=== PATIENT | female | born 1995 | race Caucasian/White ===

== ENCOUNTER 2018-10-03 22:08 | Inpatient (IN) | payer OTHER ==
[~2018-10-03] VITALS: Ht 152.4 cm; Wt 53.0 kg
--- NOTE | 2018-10-03 22:27 | ERD ---
ER Documentation Chief Complaint Chief Complaint R81. "LESS ACTIVE THAN USUAL". LEFT EYEBROW SWELLING. TRACH TO AIR. HPI This is a 23-year-old female presents for evaluation of being less active than usual. Patient resides at [facility], her baseline mental status unclear, however she was reportedly more active than what was noted today. Her vital signs have otherwise been normal, she has not had any respiratory issues, she is chronically trached. She is not verbal on evaluation. ROS All systems reviewed and are negative except as per history of present illness. Allergies Allergies: Coded Allergies: Sulfa (Sulfonamide Antibiotics) (Verified Allergy, Unknown, 10/03/18) PMhx/Soc History of Surgery: Yes (CRANIOTOMY (LEFTSIDE) 2017, TRACH PLACED SEPTEMBER 2017) Anesthesia Reaction: No Hx Neurological Disorder: No Hx Respiratory Disorders: Yes Hx Cardiac Disorders: No Hx Psychiatric Problems: No Hx Miscellaneous Medical Probl: Yes (GERD) Hx Alcohol Use: No Hx Substance Use: No Hx Tobacco Use: No Smoking Status: Never smoker Physical Exam Vitals Vital Signs Date Temp Pulse Resp B/P (MAP) Pulse Ox O2 O2 Flow FiO2 Time Delivery Rate 10/03/18 114 24 120/58 95 Trach 23:06 (78) Collar 10/03/18 120 22 96 Aerosol 5.0 28 22:56 T Tube 10/03/18 96 5.0 28 22:56 10/03/18 98.4 137 26 126/72 94 22:12 (90) Physical Exam Const: Chronically ill-appearing female, in no apparent distress. Head: Atraumatic Eyes: Normal Conjunctiva ENT: Normal External Ears, Nose and Mouth. Neck: Full range of motion. No meningismus. Trach site clean dry and intact Resp: Clear to auscultation bilaterally Cardio: Regular rate and rhythm, no murmurs Abd: Soft, non tender, non distended. Normal bowel sounds Skin: No petechiae or rashes Back: No midline or flank tenderness Ext: No cyanosis, or edema Neur: Awake and alert Psych: Unable to evaluate Result Diagram: 10/03/186 10/03/182235 Results 24 hrs Laboratory Tests Test 10/03/18 22:33 10/03/18 22:36 10/03/18 23:04 Blood Gas Specimen Source Blood venous Arterial Blood Date 10/03/2018 11:00:06 PM Drawn Arterial Blood Gas VENOUS LINE Puncture Site Edgardo Test N/A Venous Blood pH 7.482 Venous Blood pCO2 38.5 mmHG (Temp Corrected) Venous Blood pO2 63.6 mmHG (Temp Corrected) Venous Blood HCO3 28.2 mmol/L Venous Blood Oxygen 92.8 mmHG Saturation Venous Blood Base Excess 4.5 mmol/L Venous Blood Total 13.7 g/dl Hemoglobin Venous Blood 92.4 % Oxyhemoglobin Venous Blood 0.4 % Methemoglobin Carboxyhemoglobin 0 % Blood Gas Temperature 37.0 C Blood Gas Actual 18 Respiration Rate Blood Gas Modality TRACH COLLAR FiO2 28.0 % Blood Gas Notified Whom Natasha OLMEDO SURVEILLANCE MANAGER Blood Gas Notified Time 10/03/2018 11:06:36 PM White Blood Count 13.7 10^3/ul Red Blood Count 4.36 10^6/ul Hemoglobin 13.1 g/dl Hematocrit 39.3 % Mean Corpuscular Volume 90.1 fl Mean Corpuscular 30.0 pg Hemoglobin Mean Corpuscular 33.3 g/dl Hemoglobin Concent Red Cell Distribution 12.9 % Width Platelet Count 318 10^3/UL Mean Platelet Volume 11.5 fl Immature Granulocytes % 0.400 % Neutrophils % 81.3 % Lymphocytes % 11.0 % Monocytes % 6.5 % Eosinophils % 0.4 % Basophils % 0.4 % Nucleated Red Blood Cells 0.0 /100WBC % Immature Granulocytes # 0.050 10^3/ul Neutrophils # 11.1 10^3/ul Lymphocytes # 1.5 10^3/ul Monocytes # 0.9 10^3/ul Eosinophils # 0.1 10^3/ul Basophils # 0.1 10^3/ul Nucleated Red Blood Cells 0.0 10^3/ul # Prothrombin Time 12.6 Sec Prothrombin Time Ratio 1.0 INR International 0.93 Normalized Ratio Activated 32.7 Sec Partial Thromboplast Time Sodium Level 140 mmol/L Potassium Level 3.9 mmol/L Chloride Level 103 mmol/L Carbon Dioxide Level 28 mmol/L Anion Gap 9 Blood Urea Nitrogen 13 mg/dl Creatinine 0.41 mg/dl Est Glomerular Filtrat > 60 mL/min Rate mL/min Glucose Level 96 mg/dl Calcium Level 9.9 mg/dl Total Bilirubin 0.4 mg/dl Direct Bilirubin 0.00 mg/dl Indirect Bilirubin 0.4 mg/dl Aspartate Amino 24 IU/L Transf (AST/SGOT) Alanine 17 IU/L Aminotransferase (ALT/SGP T) Alkaline Phosphatase 94 IU/L Troponin I < 0.012 ng/ml Total Protein 7.8 g/dl Albumin 4.4 g/dl Globulin 3.40 g/dl Albumin/Globulin Ratio 1.29 Procalcitonin 1.15 ng/mL Urine Color YELLOW Urine Clarity SLIGHTLY CLOUDY Urine pH 7.0 Urine Specific [place] 1.031 Urine Ketones TRACE mg/dL Urine Nitrite NEGATIVE mg/dL Urine Bilirubin NEGATIVE mg/dL Urine Urobilinogen NEGATIVE mg/dL Urine Leukocyte Esterase NEGATIVE Rosa/ul Urine Microscopic RBC 2 /HPF Urine Microscopic WBC 1 /HPF Urine Mucus FEW /HPF Urine Hemoglobin NEGATIVE mg/dL Urine Glucose 3+ mg/dL Urine Total Protein NEGATIVE mg/dl Current Medications Medications Dose Sig/Lory Start Time Status Last (Trade) Ordered Route PRN Stop Time Admin Dose Reason Admin Sodium 1,000 ml @ Q1H ONCE 10/03/18 DC 10/03/18 Chloride 1,000 mls/hr IV 23:30 10/04/18 23:11 00:29 Vancomycin 250 ml @ ONCE STAT 10/04/18 HCl 125 mls/hr IVPB 00:22 10/04/18 02:21 Piperacillin 100 ml @ ONCE STAT 10/04/18 Sod/ 200 mls/hr IVPB 00:22 10/04/18 Tazobactam 00:51 Sod Procedures/MDM 23-year-old female presents for changes in level of alertness. Patient arrived afebrile and nontoxic-appearing, with no clear signs of infection. Labs and CT brain ordered. She does have a history of diabetes,, however she had no evidence of DKA. She had no fever, however she was noted to be tachycardic, and given leukocytosis, as well as an elevated procalcitonin, I am concerned that the patient could have early signs of sepsis, and as she is high risk, from residing at a facility, being chronically bed bound and trached. Will plan for admission for possible infection. We will treat empirically with vancomycin and Zosyn. Accepting Care Team: Current data and ongoing care discussed. Primary: Alli Consulting: None Outstanding Data: none EKG: Rate/Rhythm: Sinus tachycardia QRS, ST, T-waves: No changes consistent w/ acute ischemia Impression: No evidence of ischemia or arrhythmia Departure Diagnosis: Primary Impression: Altered level of consciousness Additional Impression: Leukocytosis Leukocytosis type: unspecified Qualified Codes: D72.829 - Elevated white blood cell count, unspecified Condition: Stable SHELBY FREEDMAN MD Oct 03, 2018 22:27
[2018-10-03] MEDS ORDERED: SOD CHLORIDE 0.9% 1,000 ML IV ONE (23:30)
[2018-10-04] MEDS ORDERED: PIPER-TAZO 3.375 GM IV (PMX) 100 ML IVPB STA (00:22)
[2018-10-04] MEDS ORDERED: VANCOMYCIN 1 GM (PMX) 250 ML IVPB STA (00:22)
[2018-10-04] MEDS ORDERED: ACETAMINOPHEN 650 MG SUPP PR ONE (09:30)
[2018-10-04] MEDS ORDERED: NACL 0.9% 3 ML SYG IV SCH (10:00)
[2018-10-04] MEDS ORDERED: BISACODYL (EC) 5 MG TAB PO PRN (10:00)
[2018-10-04] MEDS ORDERED: ONDANSETRON 4 MG TAB PO PRN (10:00)
[2018-10-04] MEDS ORDERED: BISACODYL 10 MG SUPP PR PRN (10:00)
[2018-10-04] MEDS ORDERED: MAGNESIUM HYDROXIDE 30ML CUP PO PRN (10:00)
[2018-10-04] MEDS ORDERED: ACETAMINOPHEN 650 MG SUPP PR PRN (10:00)
[2018-10-04] MEDS ORDERED: DOCUSATE SODIUM 100 MG CAP PO PRN (10:00)
[2018-10-04] MEDS ORDERED: ASPI81TA52 GTB (10:02)
[2018-10-04] MEDS ORDERED: FAMO20TA18 GTB (10:03)
[2018-10-04] MEDS ORDERED: DOCO1CAP2 GTB (10:04)
[2018-10-04] MEDS ORDERED: CIDE300T GTB (10:05)
[2018-10-04] MEDS ORDERED: COCO120O GTB (10:06)
[2018-10-04] MEDS ORDERED: VIT500LI GTB (10:08)
[2018-10-04] MEDS ORDERED: METO-429 GTB (10:10)
[2018-10-04] MEDS ORDERED: HYDR-3671 GTB (10:11)
[2018-10-04] MEDS ORDERED: HEP30MU30 SQ (10:13)
[2018-10-04] MEDS ORDERED: MAGN400O19 GTB (10:14)
[2018-10-04] MEDS ORDERED: ONDA4TAB8 GTB (10:14)
[2018-10-04] MEDS ORDERED: POLY17PO6 GTB (10:15)
[2018-10-04] MEDS ORDERED: PROM5SYR2 GTB (10:19)
[2018-10-04] MEDS ORDERED: HYDR-3670 GTB (10:21)
[2018-10-04] MEDS ORDERED: HYDR2TAB36 G-TUBE (10:23)
[2018-10-04] MEDS ORDERED: CLON0.2T12 GTB (10:23)
[2018-10-04] MEDS ORDERED: LORA-441 GTB (10:24)
[2018-10-04] MEDS ORDERED: BACL10TA GTB (10:25)
[2018-10-04] MEDS ORDERED: TRAM50TA PO (10:26)
[2018-10-04] MEDS ORDERED: LIDO10VI TOP (10:30)
[2018-10-04] MEDS ORDERED: LOPE2CAP GTB (10:31)
[2018-10-04] MEDS ORDERED: GUAI600T23 GTB (10:32)
[2018-10-04] MEDS ORDERED: ACET160O41 GTB (10:33)
[2018-10-04] MEDS ORDERED: HYDR-4011 GTB (10:34)
[2018-10-04] MEDS ORDERED: BISA10SU55 RC (10:35)
[2018-10-04] MEDS ORDERED: ANR PR (10:35)
--- NOTE | 2018-10-04 11:04 | HP ---
Date/Time of Note Date/Time of Note DATE: 10/04/18 TIME: 10:58 Assessment/Plan VTE Prophylaxis Pharmacological prophylaxis: LMWH Lines/Catheters IV Catheter Type (from [facility]): Sal[place] Assessment/Plan Hospital Course 1. SIRS. Lactic acid is normal 2. Left side pneumonia. Xray chest is positive for Patchy left lower lobe pneumonia. 3. VDRF with tracheostomy 4. s/p craniotomy on the left. Incomplete data. 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 Brain herniates beyond the margins of the craniectomy. Old posterior right basil ganglia lacunar infarct extending cephalad into the right parietal nichols radiata and centrum semiovale. Laminar necrosis/dystrophic calcification lateral left frontal lobe. Acute hemorrhage considered less likely. Paranasal sinus mucosal disease. Right mastoid air cell disease. 5. Dysphagia with G tube Assessment/Plan -DVT proph. Lovenox -GI proph. Protonix -c/w IV a/b Rocephine -nebs around the clock -c/w tube feeding/gentle -medsurg -cooling measures -pt is pancultured -start IV fluids Result Diagram: 10/03/18223510/03/182235 Results 24hrs Laboratory Tests Test 10/03/18 22:33 10/03/18 22:36 10/03/18 23:04 10/04/18 00:21 Blood Gas Blood venous Specimen Source Arterial Blood 10/03/2018 11:00:0 Date Drawn 6 PM Arterial Blood VENOUS LINE Gas Puncture Site Edgardo Test N/A Venous Blood pH 7.482 H Venous Blood 38.5 pCO2 (Temp Corrected) Venous Blood pO2 63.6 H (Temp Corrected) Venous Blood 28.2 HCO3 Venous Blood 92.8 H Oxygen Saturation Venous Blood 4.5 Base Excess Venous Blood 13.7 Total Hemoglobin Venous Blood 92.4 Oxyhemoglobin Venous Blood 0.4 Methemoglobin Carboxyhemoglobi 0 n Blood Gas 37.0 Temperature Blood Gas Actual 18 Respiration Rate Blood Gas TRACH COLLAR Modality FiO2 28.0 Blood Gas D SHARA YARD BRAKEMAN Notified Whom Blood Gas 10/03/2018 11:06:3 Notified Time 6 PM White Blood 13.7 H Count Red Blood Count 4.36 Hemoglobin 13.1 Hematocrit 39.3 Mean Corpuscular 90.1 Volume Mean Corpuscular 30.0 Hemoglobin Mean Corpuscular 33.3 Hemoglobin Bailey nt Red Cell 12.9 Distribution Width Platelet Count 318 Mean Platelet 11.5 H Volume Immature 0.400 Granulocytes % Neutrophils % 81.3 H Lymphocytes % 11.0 L Monocytes % 6.5 Eosinophils % 0.4 Basophils % 0.4 Nucleated Red 0.0 Blood Cells % Immature 0.050 H Granulocytes # Neutrophils # 11.1 H Lymphocytes # 1.5 Monocytes # 0.9 Eosinophils # 0.1 Basophils # 0.1 Nucleated Red 0.0 Blood Cells # Prothrombin Time 12.6 Prothrombin Time 1.0 Ratio INR 0.93 International Normalized Ratio Activated 32.7 Partial Thrombop last Time Sodium Level 140 Potassium Level 3.9 Chloride Level 103 Carbon Dioxide 28 Level Anion Gap 9 Blood Urea 13 Nitrogen Creatinine 0.41 L Est Glomerular > 60 Filtrat Rate mL/min Glucose Level 96 Calcium Level 9.9 Total Bilirubin 0.4 Direct Bilirubin 0.00 Indirect 0.4 Bilirubin Aspartate Amino 24 Transf (AST/SGOT ) Alanine 17 Aminotransferase (ALT/SGPT) Alkaline 94 Phosphatase Troponin I < 0.012 Total Protein 7.8 Albumin 4.4 Globulin 3.40 H Albumin/Globulin 1.29 Ratio Procalcitonin 1.15 H Urine Color YELLOW Urine Clarity SLIGHTLY CLOUDY A Urine pH 7.0 Urine Specific 1.031 H Gamaliel Urine Ketones TRACE A Urine Nitrite NEGATIVE Urine Bilirubin NEGATIVE Urine NEGATIVE Urobilinogen Urine Leukocyte NEGATIVE Esterase Urine 2 Microscopic RBC Urine 1 Microscopic WBC Urine Mucus FEW A Urine Hemoglobin NEGATIVE Urine Glucose 3+ H Urine Total NEGATIVE Protein Lactic Acid 0.9 Level Test 10/04/18 01:10 10/04/18 03:00 POC Venous 0.6 Lactate Lactic Acid 0.8 Level HPI/ROS Admit Date/Time Admit Date/Time Hx of Present Illness This is a 23-year-old residential resident presents to ER for evaluation of being less active than usual. The information is taken from medical record. Pt is non verbal and he base line is unknown. Patient resides at [facility]. Pt has tracheostomy and G tube. ROS Subjective hx not possible: pt non-verbal PMH/Family/Social Past Medical History Medical History: other (unknown) Medications Current Medications Sodium Chloride 1,000 ml @ 50 mls/hr Q20H IV ; Start 10/04/18 at 09:39 IV Flush (NS 3 ml) 3 ml PER PROTOCOL IV ; Start 10/04/18 at 10:00 Ondansetron HCl (Zofran Tab) 4 mg Q6H PRN PO NAUSEA/VOMITING; Start 10/04/18 at 10:00 Acetaminophen (Tylenol Supp) 650 mg Q6H PRN [place] .PAIN 1-3 OR TEMP; Start 10/04/18 at 10:00 Docusate Sodium (Colace) 100 mg Q12H PRN PO .CONSTIPATION; Start 10/04/18 at 10:00 Magnesium Hydroxide (Milk Of Mag) 30 ml DAILY PRN PO .CONSTIPATION; Start 10/04/18 at 10:00 Bisacodyl (Dulcolax) 5 mg DAILY PRN PO .CONSTIPATION; Start 10/04/18 at 10:00 Bisacodyl (Dulcolax Supp) 10 mg DAILY PRN [place] .CONSTIPATION; Start 10/04/18 at 10:00 Pantoprazole (Protonix Tab) 40 mg DAILY@06 PO ; Start 10/05/18 at 06:00 Ceftriaxone Sodium 50 ml @ 100 mls/hr Q24H IVPB ; Start 10/04/18 at 11:00 Coded Allergies: Sulfa (Sulfonamide Antibiotics) (Verified Allergy, Unknown, 10/04/18) Past Surgical History Past Surgical Hx: other (CRANIOTOMY (LEFTSIDE), 2017, TRACHeostomy and G tube , SEPTEMBER 2017) Social History Alcohol Use: other (unknown) Smoking Status: Never smoker Drug Use: other (unknown) Exam/Review of Systems Vital Signs Vitals Vital Signs Date Temp Pulse Resp B/P (MAP) Pulse Ox O2 O2 Flow FiO2 Time Delivery Rate 10/04/18 100.4 09:22 10/04/18 107 24 115/63 96 Trach 5.0 08:30 (80) Collar 10/04/18 28 05:20 Exam Constitutional: alert, non-verbal Head: other (left side of the head without a bone, soft o palpation, brain pulsatig) Neck: supple, other (tracheostomy) Respiratory: diminished breath sounds Cardiovascular: regular rate and rhythm Gastrointestinal: soft, other (G tube) Extremities: normal pulses VICTOR MANUEL ALEXIS Oct 04, 2018 11:04
[2018-10-04] MEDS: SOD CHLORIDE 0.9% 1,000 ML IV SCH (11:21)
[2018-10-04] MEDS: CEFTRIAXONE 1 GM/50 ML (PMX) 50 ML IVPB SCH (11:21)
[2018-10-04 12:30] VITALS: BMI 26.7
[2018-10-04] MEDS: ALBUTEROL/IPRATROPIUM (NEB) 3 ML AMP HHN SCH ×2 (13:44→20:41)
[2018-10-04 13:59] VITALS: PULSE 107
[2018-10-04] MEDS ORDERED: ACETAMINOPHEN 160 MG/5ML CUP GTB PRN (14:30)
[2018-10-04] MEDS ORDERED: LOPERAMIDE 2 MG CAP GTB PRN (15:00)
[2018-10-04] MEDS ORDERED: LORAZEPAM 0.5 MG TAB GTB PRN (15:00)
[2018-10-04 15:07] VITALS: BP 114/59; PULSE 90; RESP 18
[2018-10-04] MEDS: ENOXAPARIN 40 MG/0.4 ML SYG SC SCH (15:28)
[2018-10-04] MEDS: ASPIRIN 81 MG TAB GTB SCH (16:35)
[2018-10-04] MEDS: ASCORBIC ACID 500 MG TAB GTB SCH (16:35)
[2018-10-04 17:17] VITALS: PULSE 97
[2018-10-04] MEDS: INSULIN ASPART [NOVOLOG] 3 ML PEN SC SCH ×2 (18:08→20:56)
[2018-10-04 18:51] VITALS: PULSE 140; PULSE 144
[2018-10-04] MEDS: HYDROmorphONE 2 MG TAB GTB PRN (19:44)
[2018-10-04 20:00] VITALS: BP 133/99; PULSE 138; PULSE 148; RESP 20
[2018-10-04] MEDS: FAMOTIDINE 20 MG TAB GTB SCH (20:29)
[2018-10-04] MEDS: METOPROLOL 50 MG TAB GTB SCH (20:30)
[2018-10-05] VITALS (9 sets, daily range): BP systolic 104–119; BP diastolic 56–74; PULSE 91–125; RESP 17–19
[2018-10-05] MEDS: ALBUTEROL/IPRATROPIUM (NEB) 3 ML AMP HHN SCH ×4 (02:16→20:22)
[2018-10-05] MEDS: HYDROmorphONE 2 MG TAB GTB PRN ×2 (03:22→10:47)
[2018-10-05] MEDS: SOD CHLORIDE 0.9% 1,000 ML IV SCH (05:40)
[2018-10-05] MEDS: PANTOPRAZOLE (EC) 40 MG TAB PO SCH (05:41)
[2018-10-05] MEDS: BACLOFEN 10 MG TAB GTB PRN ×2 (06:29→21:51)
[2018-10-05] MEDS ORDERED: GLUCOSE GEL 15 GRAM TUBE BUCCAL PRN (07:00)
[2018-10-05] MEDS ORDERED: GLUCOSE GEL 15 GRAM TUBE PO PRN ×2 (07:00)
[2018-10-05] MEDS ORDERED: ONDANSETRON 4 MG INJ IV PRN (07:00)
[2018-10-05] MEDS ORDERED: DEXTROSE 50% 50 ML SYRINGE IV PRN ×2 (07:00)
[2018-10-05] MEDS ORDERED: GLUCAGON 1 MG INJ IM PRN (07:00)
[2018-10-05] MEDS: INSULIN ASPART [NOVOLOG] 3 ML PEN SC SCH ×4 (08:42→21:34)
--- NOTE | 2018-10-05 10:55 | PN ---
Date/Time of Note Date/Time of Note DATE: 10/05/18 TIME: 10:46 Assessment/Plan VTE Prophylaxis [place] [facility] [place] risk: 5 SCD applied (from [facility] [place] Yes Pharmacological prophylaxis: LMWH Lines/Catheters IV [facility] Peripheral IV Urinary Cath still in place: No Assessment/Plan Hospital Course 1. SIRS. Lactic acid is normal 2. Left side pneumonia. Xray chest is positive for Patchy left lower lobe pneumonia. 3. VDRF with tracheostomy 4. s/p craniotomy on the left. Incomplete data. 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 Brain herniates beyond the margins of the craniectomy. Old posterior right basil ganglia lacunar infarct extending ceph alad into the right parietal nichols radiata and centrum semiovale. Laminar necrosis/dystrophic calcification lateral left frontal lobe. Acute hemorrhage considered less likely. Paranasal sinus mucosal disease. Right mastoid air cell disease. 5. Dysphagia with G tube 6. DM type I, uncontrolled 7. Opiate dependence, per SNF record pt was on Dilaudid PO, [place], Tramadol 8. Hypertension Assessment/Plan -DVT proph. Lovenox Dr Quintero pulmonary consult -insulin [place] 18 units -hypoglycemic measures -GI proph. Protonix -c/w IV a/b Rocephine -nebs around the clock -c/w tube feeding/gentle -medsurg -cooling measures -pt is pancultured -c/w IV fluids NS -pain control Result Diagram: 10/05/18 0510 10/05/18 0510 Results 24hrs Laboratory Tests Test 10/04/18 17:26 10/04/18 20:52 10/05/18 05:10 10/05/18 08:28 Bedside Glucose 204 242 H 416 *H White Blood Count 9.7 # Red Blood Count 3.42 #L Hemoglobin 10.3 #L Hematocrit 32.1 L Mean Corpuscular Volume 93.9 Mean Corpuscular 30.1 Hemoglobin Mean Corpuscular 32.1 Hemoglobin Concent Red Cell Distribution 12.9 Width Platelet Count 229 # Mean Platelet Volume 12.4 H Immature Granulocytes % 0.600 H Neutrophils % 78.6 H Lymphocytes % 12.3 L Monocytes % 6.6 Eosinophils % 1.3 Basophils % 0.6 Nucleated Red Blood 0.0 Cells % Immature Granulocytes # 0.060 H Neutrophils # 7.7 H Lymphocytes # 1.2 Monocytes # 0.6 Eosinophils # 0.1 Basophils # 0.1 Nucleated Red Blood 0.0 Cells # Sodium Level 139 Potassium Level 4.3 Chloride Level 108 Carbon Dioxide Level 20 L Anion Gap 11 Blood Urea Nitrogen 10 Creatinine 0.46 Est Glomerular Filtrat > 60 Rate mL/min Glucose Level 406 #*H Hemoglobin A1c 6.6 H Calcium Level 9.1 Subjective 24 Hr Interval Summary Subjective hx not possible: pt non-verbal Exam/Review of Systems Exam Vitals Vital Signs Date Temp Pulse Resp B/P (MAP) Pulse Ox O2 O2 Flow FiO2 Time Delivery Rate 10/05/18 110 24 96 Aerosol 6.0 28 09:36 T Tube 10/05/18 100.0 119/67 07:12 (84) Intake and Output 10/04/18 10/04/18 10/05/18 1515:00 23:00 07:00 IntakeIntake Total 0 ml BalanceBalance 0 ml Constitutional: alert, non-verbal, distress; No oriented, No well developed, No frail, No obese, No other Head: other (left side of the head is soft, bone defect) Eyes: nl conjunctiva Neck: bruits Respiratory: diminished breath sounds Cardiovascular: regular rate and rhythm, other (tachycardia) Gastrointestinal: soft, other (G tube) Results Results 24hrs Laboratory Tests Test 10/04/18 17:26 10/04/18 20:52 10/05/18 05:10 10/05/18 08:28 Bedside Glucose 204 242 H 416 *H White Blood Count 9.7 # Red Blood Count 3.42 #L Hemoglobin 10.3 #L Hematocrit 32.1 L Mean Corpuscular Volume 93.9 Mean Corpuscular 30.1 Hemoglobin Mean Corpuscular 32.1 Hemoglobin Concent Red Cell Distribution 12.9 Width Platelet Count 229 # Mean Platelet Volume 12.4 H Immature Granulocytes % 0.600 H Neutrophils % 78.6 H Lymphocytes % 12.3 L Monocytes % 6.6 Eosinophils % 1.3 Basophils % 0.6 Nucleated Red Blood 0.0 Cells % Immature Granulocytes # 0.060 H Neutrophils # 7.7 H Lymphocytes # 1.2 Monocytes # 0.6 Eosinophils # 0.1 Basophils # 0.1 Nucleated Red Blood 0.0 Cells # Sodium Level 139 Potassium Level 4.3 Chloride Level 108 Carbon Dioxide Level 20 L Anion Gap 11 Blood Urea Nitrogen 10 Creatinine 0.46 Est Glomerular Filtrat > 60 Rate mL/min Glucose Level 406 #*H Hemoglobin A1c 6.6 H Calcium Level 9.1 Medications Medication Current Medications Sodium Chloride 1,000 ml @ 50 mls/hr Q20H IV Last administered on 10/05/18at 05:40; Admin Dose 50 MLS/HR; Start 10/04/18 at 09:39 IV Flush (NS 3 ml) 3 ml PER PROTOCOL IV ; Start 10/04/18 at 10:00 Ondansetron HCl (Zofran Tab) 4 mg Q6H PRN PO NAUSEA/VOMITING; Start 10/04/18 at 10:00 Acetaminophen (Tylenol Supp) 650 mg Q6H PRN [place] .PAIN 1-3 OR TEMP; Start 10/04/18 at 10:00 Docusate Sodium (Colace) 100 mg Q12H PRN PO .CONSTIPATION; Start 10/04/18 at 10:00 Magnesium Hydroxide (Milk Of Mag) 30 ml DAILY PRN PO .CONSTIPATION; Start 10/04 at 10:00 Bisacodyl (Dulcolax) 5 mg DAILY PRN PO .CONSTIPATION; Start 10/04/18 at 10:00 Bisacodyl (Dulcolax Supp) 10 mg DAILY PRN [place] .CONSTIPATION; Start 10/04/18 at 10:00 Pantoprazole (Protonix Tab) 40 mg DAILY@06 PO Last administered on 10/05/18at 05:41; Admin Dose 40 MG; Start 10/05/18 at 06:00 Ceftriaxone Sodium 50 ml @ 100 mls/hr Q24H IVPB Last administered on 10/04/18at 11:21; Admin Dose 100 MLS/HR; Start 10/04/18 at 11:00 Enoxaparin Sodium (Lovenox) 40 mg DAILY SC Last administered on 10/04/18at 15:28; Admin Dose 40 MG; Start 10/04/18 at 11:30 Albuterol/ Ipratropium (Duoneb) 3 ml Q6H RESP THERAPY HHN Last administered on 10/05/18at 09:34; Admin Dose 3 ML; Start 10/04/18 at 14:00 Acetaminophen (Tylenol Liquid (Ped)) 160 mg Q4H PRN GTB MILD PAIN(1-3) OR TEMP>38C; Start 10/04/18 at 14:30 Aspirin (Aspirin) 81 mg DAILY GTB Last administered on 10/04/18 16:35; Admin Dose 81 MG; Start 10/04/18 at 15:00 Baclofen (Lioresal) 10 mg Q6H PRN GTB MUSCLE SPASMS Last administered on 10/05/18 06:29; Admin Dose 10 MG; Start 10/04/18 at 15:00 Clonidine (Catapres) 0.2 mg Q4H PRN GTB FOR SBP ABOVE 170; Start 10/04/18 at 15:00 Famotidine (Pepcid) 20 mg BID GTB Last administered on 10/04/18 20:29; Admin Dose 20 MG; Start 10/04/18 at 21:00 Guaifenesin (Mucinex) 600 mg BID PRN PO THICK SECRETIONS; Start 10/04/18 at 14:30; Status UNV Hydralazine HCl (Apresoline) 25 mg TID PRN GTB ELEVATED BLOOD PRESSURE; Start 10/04/18 at 15:00; Status UNV Hydromorphone HCl (Dilaudid) 2 mg Q6H PRN GTB PAIN LEVEL 7-10 Last administered on 10/05/18 03:22; Admin Dose 2 MG; Start 10/04/18 at 15:00 Loperamide HCl (Imodium Cap) 2 mg TID PRN GTB DIARRHEA; Start 10/04/18 at 15:00 Lorazepam (Ativan) 0.25 mg Q8H PRN GTB ANXIETY; Start 10/04/18 at 15:00 Metoprolol Tartrate (Lopressor) 50 mg BID GTB Last administered on 10/04/18 20:30; Admin Dose 50 MG; Start 10/04/18 at 21:00 Ascorbic Acid (Vitamin C) 1,000 mg DAILY GTB Last administered on 10/04/18 16:35; Admin Dose 1,000 MG; Start 10/04/18 at 15:00 Insulin Aspart (Novolog Insulin Pen) NOVOLOG *MODERATE* ALGORITHM WITH MEALS BEDTIME SC Last administered on 10/05/18 08:42; Admin Dose 12 UNIT; Start 10/04/18 at 18:00 Ondansetron HCl (Zofran Inj) 4 mg Q6H PRN IV NAUSEA AND/OR VOMITING Last administered on 10/05/18at 07:32; Admin Dose 4 MG; Start 10/05/18 at 07:00 Diagnostic Test (Pha) (Accu-Chek) 1 ea 02 XX ; Start 10/06/18 at 02:00 Miscellaneous Information 1 ea NOTE XX ; Start 10/05/18 at 07:00 Glucose (Glutose) 15 gm Q15M PRN PO DECREASED GLUCOSE; Start 10/05/18 at 07:00 Glucose (Glutose) 22.5 gm Q15M PRN PO DECREASED GLUCOSE; Start 10/05/18 at 07:00 Dextrose (D50w Syringe) 25 ml Q15M PRN IV DECREASED GLUCOSE; Start 10/05/18 at 07:00 Dextrose (D50w Syringe) 50 ml Q15M PRN IV DECREASED GLUCOSE; Start 10/05/18 at 07:00 Glucagon (Glucagen) 1 mg Q15M PRN IM DECREASED GLUCOSE; Start 10/05/18 at 07:00 Glucose (Glutose) 15 gm Q15M PRN BUCCAL DECREASED GLUCOSE; Start 10/05/18 at 07:00 VICTOR MANUEL ALEXIS Oct 05, 2018 10:55
[2018-10-05] MEDS ORDERED: LINAGLIPTIN 5 MG TABLET G-TUBE SCH (11:00)
[2018-10-05] MEDS ORDERED: GUAIFENESIN 20 MG/ML 5ML CUP PO PRN (11:00)
[2018-10-05] MEDS: ASPIRIN 81 MG TAB GTB SCH (11:06)
[2018-10-05] MEDS: ASCORBIC ACID 500 MG TAB GTB SCH (11:06)
[2018-10-05] MEDS: CEFTRIAXONE 1 GM/50 ML (PMX) 50 ML IVPB SCH (11:07)
[2018-10-05] MEDS: FAMOTIDINE 20 MG TAB GTB SCH ×2 (11:07→21:25)
[2018-10-05] MEDS: ENOXAPARIN 40 MG/0.4 ML SYG SC SCH (11:09)
[2018-10-05] MEDS: METOPROLOL 50 MG TAB GTB SCH ×3 (11:14→21:53)
[2018-10-05] MEDS: HYDROCODONE/APAP (5/325) TAB GTB PRN (14:49)
[2018-10-05] MEDS ORDERED: INSULIN GLARGINE [LANTus] (100 UNITS/ML) SYG SC SCH (21:00)
[2018-10-05] MEDS: INSULIN GLARGINE [LANTus] (100 UNITS/ML) SYG SC SCH (21:34)
[2018-10-06] VITALS (10 sets, daily range): BP systolic 102–147; BP diastolic 47–86; PULSE 81–128; RESP 17–19
[2018-10-06] MEDS: SOD CHLORIDE 0.9% 1,000 ML IV SCH ×2 (00:08→22:03)
[2018-10-06] MEDS: ALBUTEROL/IPRATROPIUM (NEB) 3 ML AMP HHN SCH ×4 (01:10→19:46)
[2018-10-06] MEDS: ACCU-CHEK XX SCH (01:54)
[2018-10-06] MEDS: PANTOPRAZOLE (EC) 40 MG TAB PO SCH (05:32)
[2018-10-06] MEDS: ASCORBIC ACID 500 MG TAB GTB SCH (09:05)
[2018-10-06] MEDS: FAMOTIDINE 20 MG TAB GTB SCH ×2 (09:05→21:10)
[2018-10-06] MEDS: ASPIRIN 81 MG TAB GTB SCH (09:05)
[2018-10-06] MEDS: METOPROLOL 50 MG TAB GTB SCH ×2 (09:06→21:11)
[2018-10-06] MEDS: INSULIN ASPART [NOVOLOG] 3 ML PEN SC SCH ×2 (09:13→11:45)
[2018-10-06] MEDS: ENOXAPARIN 40 MG/0.4 ML SYG SC SCH (09:13)
--- NOTE | 2018-10-06 11:17 | CONS ---
Assessment/Plan Assessment/Plan Assessment/Plan (Daily) Assessment and recommendations; 1. patient admitted with low-grade fever with mild leukocytosis with significant interval improvement. Questionable left lower lobe pneumonia. No obvious other source of infection. 2. History of muscle spasms. Continue current supportive care. Obtain follow-up chest x-ray. Consultation Date/Type/Reason Admit Date/Time Date of Consultation: Oct 06, 2018 Type of Consult Pulmonary Patient is a 23-year-old woman who was sent over to the hospital from long term with low-grade fever. Upon evaluation a chest x-ray was done which is showing possible left lower lobe pneumonia. Patient started on Rocephin with improvement in leukocytosis. Because of chronic encephalopathy patient is unable to give any history by herself whatsoever. Patient however did not appear to be in any distress whatsoever. Past medical history; 1. 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 2. History of tracheostomy, maintained on T-piece. 3. History of muscle spasms. 4. Chronic dysphagia, status post G-tube placement in the past. Medications; reviewed. Allergies; sulfa drugs. Family history, social history, occupational history is noncontributory. Review of systems; unable to be obtained. General exam; young woman, awake, smiles on eye contact but is noncommunicative. Date/Time of Note DATE: 10/06/18 TIME: 11:13 Past Medical History Medical History: other (unknown) Home Meds Reported Medications Hard Fat/Phenylephrine* (Anusol*) 1 Supp Supp, 1 SUPP DC PRN PRN for RECTAL BLEEDING, SUPP 10/04/18 Bisacodyl (Dulcolax) 10 Mg Supp.rect, 10 MG RC DAILY PRN for CONSTIPATION, SUPP.RECT 10/04/18 Hydrocodone/Acetaminophen ([place] 5-325 Tablet) 1 Each Tablet, 1 EACH GTB Q4H WHILE AWAKE PRN for MODERATE PAIN LEVEL 4-6, TAB 10/04/18 Acetaminophen* (Acetaminophen* Susp) 160 Mg/5 Ml Oral.susp, 160 MG GTB Q4H PRN for PAIN OR TEMP ABOVE 38C, ML AND MILD PAIN 10/04/18 Guaifenesin (Guaifenesin) 600 Mg Tablet.sa, 600 MG GTB BID PRN for THICK SECRETIONS, TAB 10/04/18 Loperamide Hcl* (Imodium*) 2 Mg Capsule, 2 MG GTB TID PRN for DIARRHEA, CAP MAX 16 mg/day 10/04/18 Lidocaine HCl (Xylocaine) 10 Mg/1 Ml Vial, 5 ML TOP BEFORE SUCTIONING , VIAL 1% 10/04/18 Tramadol Hcl* (Ultram*) 50 Mg Tablet, 50 MG PO Q6H PRN for MILD PAIN LEVEL 1-3, TAB 10/04/18 Baclofen* (Baclofen*) 10 Mg Tablet, 10 MG GTB Q6 PRN for MUSCLE SPASMS, TAB 10/04/18 Lorazepam* (Ativan*) 0.5 Mg Tablet, 0.25 MG GTB Q8 PRN for ANXIETY, #30 TAB 10/04/18 Hydromorphone Hcl* (Dilaudid*) 2 Mg Tablet, 2 MG G-TUBE Q6 PRN for PAIN LEVEL 7- 10, TAB 10/04/18 Clonidine Hcl* (Catapres*) 0.2 Mg Tablet, 0.2 MG GTB Q4H PRN for ELEVATED BLOOD PRESSURE, TAB IF SBP EQUAL TO OR >160 OR DBP EQUAL TO OR >110 10/04/18 Hydralazine Hcl* (Hydralazine Hcl*) 10 Mg Tablet, 20 MG GTB Q4 PRN for ELEVATED BLOOD PRESSURE, #120 TAB SBP EQUAL TO OR >160 DBP EQUAL TO OR > 110 10/04/18 Promethazine HCl/Codeine (Prometh-Codein 6.25-10 mg/5 ml) 5 Ml Syrup, 5 ML GTB QID PRN for COUGH 10/04/18 Polyethylene Glycol* (Miralax*) 17 Gm Powd.pack, 17 GM GTB DAILY PRN for CONSTIPATION, #30 PACKET 10/04/18 Ondansetron Hcl* (Zofran*) 4 Mg Tablet, 4 MG GTB Q6H PRN for NAUSEA AND OR VOMITING, TAB 10/04/18 Magnesium Hydroxide* (Milk Of Magnesia*) 400 Mg/5 Ml Oral.susp, 30 ML GTB DAILY PRN for CONSTIPATION, ML 10/04/18 Heparin Sod (Porcine) (Heparin) 1,000 Unit/Ml Soln, 5000 UNIT SQ Q12 10/04/18 Hydralazine Hcl* (Hydralazine Hcl*) 25 Mg Tab, 25 MG GTB TID PRN for ELEVATED BLOOD PRESSURE, #60 TAB HOLD FOR SBP LESS THAN 110 10/04/18 Metoprolol Tartrate* (Lopressor*) 50 Mg Tab, 50 MG GTB BID, #60 TAB HOLD FOR SBP<110 OR HR<60 10/04/18 Vit C-Ascorbate Ca-Ascorb Sod (Vitamin C) 500 Mg/15 Ml Liquid, 1000 MG GTB DAILY, ML PROVIDED BY FAMILY 10/04/18 Coconut Oil (COCONUT OIL) 120 Ml Oil, 10 ML GTB DAILY PROVIDED BY FAMILY 10/04/18 Cider Vinegar (Apple Cider Vinegar) 300 Mg Tablet, 15 ML GTB DAILY, TAB WITH 4oz OF WATER 10/04/18 Docosahexanoic Acid/Epa (Fish Oil Concentrate Softgel) 1 Each Capsule, 10 ML GTB DAILY, CAP 10/04/18 Famotidine* (Famotidine*) 20 Mg Tablet, 20 MG GTB BID, #60 TAB 10/04/18 Aspirin (Low Dose Aspirin) 81 Mg Tablet.dr, 81 MG GTB DAILY, #30 TAB 10/04/18 Medications Current Medications Sodium Chloride 1,000 ml @ 50 mls/hr Q20H IV Last administered on 10/06/18at 00:08; Admin Dose 50 MLS/HR; Start 10/04/18 at 09:39 IV Flush (NS 3 ml) 3 ml PER PROTOCOL IV ; Start 10/04/18 at 10:00 Ondansetron HCl (Zofran Tab) 4 mg Q6H PRN PO NAUSEA/VOMITING; Start 10/04/18 at 10:00 Acetaminophen (Tylenol Supp) 650 mg Q6H PRN DC .PAIN 1-3 OR TEMP; Start 10/04/18 at 10:00 Docusate Sodium (Colace) 100 mg Q12H PRN PO .CONSTIPATION; Start 10/04/18 at 10:00 Magnesium Hydroxide (Milk Of Mag) 30 ml DAILY PRN PO .CONSTIPATION; Start 10/04/18 at 10:00 Bisacodyl (Dulcolax) 5 mg DAILY PRN PO .CONSTIPATION; Start 10/04/18 at 10:00 Bisacodyl (Dulcolax Supp) 10 mg DAILY PRN DC .CONSTIPATION; Start 10/04/18 at 10:00 Pantoprazole (Protonix Tab) 40 mg DAILY@06 PO Last administered on 10/06/18 05:32; Admin Dose 40 MG; Start 10/05/18 at 06:00 Ceftriaxone Sodium 50 ml @ 100 mls/hr Q24H IVPB Last administered on 10/05/18 11:07; Admin Dose 100 MLS/HR; Start 10/04/18 at 11:00 Enoxaparin Sodium (Lovenox) 40 mg DAILY SC Last administered on 10/06/18 09:13; Admin Dose 40 MG; Start 10/04/18 at 11:30 Albuterol/ Ipratropium (Duoneb) 3 ml Q6H RESP THERAPY HHN Last administered on 10/06/18 07:51; Admin Dose 3 ML; Start 10/04/18 at 14:00 Acetaminophen (Tylenol Liquid (Ped)) 160 mg Q4H PRN GTB MILD PAIN(1-3) OR TEMP>38C Last administered on 10/05/18 17:39; Admin Dose 160 MG; Start 10/04/18 at 14:30 Aspirin (Aspirin) 81 mg DAILY GTB Last administered on 10/06/18 09:05; Admin Dose 81 MG; Start 10/04/18 at 15:00 Baclofen (Lioresal) 10 mg Q6H PRN GTB MUSCLE SPASMS Last administered on 10/05/18 21:51; Admin Dose 10 MG; Start 10/04/18 at 15:00 Clonidine (Catapres) 0.2 mg Q4H PRN GTB FOR SBP ABOVE 170; Start 10/04/18 at 15:00 Famotidine (Pepcid) 20 mg BID GTB Last administered on 10/06/18 09:05; Admin Dose 20 MG; Start 10/04/18 at 21:00 Guaifenesin (Robitussin Liquid Cup) 300 mg QID PRN PO CONGESTION/COUGH; Start 10/05/18 at 11:00 Hydralazine HCl (Apresoline) 25 mg TID GTB ; Start 10/04/18 at 13:00 Hydromorphone HCl (Dilaudid) 2 mg Q6H PRN GTB PAIN LEVEL 7-10 Last administered on 10/05/18at 10:47; Admin Dose 2 MG; Start 10/04/18 at 15:00 Loperamide HCl (Imodium Cap) 2 mg TID PRN GTB DIARRHEA; Start 10/04/18 at 15:00 Lorazepam (Ativan) 0.25 mg Q8H PRN GTB ANXIETY; Start 10/04/18 at 15:00 Metoprolol Tartrate (Lopressor) 50 mg BID GTB Last administered on 10/06/18at 09:06; Admin Dose 50 MG; Start 10/04/18 at 21:00 Ascorbic Acid (Vitamin C) 1,000 mg DAILY GTB Last administered on 10/06/18at 09:05; Admin Dose 1,000 MG; Start 10/04/18 at 15:00 Insulin Aspart (Novolog Insulin Pen) NOVOLOG *MODERATE* ALGORITHM WITH MEALS BEDTIME SC Last administered on 10/06/18at 09:13; Admin Dose 8 UNIT; Start 10/04/18 at 18:00 Ondansetron HCl (Zofran Inj) 4 mg Q6H PRN IV NAUSEA AND/OR VOMITING Last administered on 10/05/18at 07:32; Admin Dose 4 MG; Start 10/05/18 at 07:00 Diagnostic Test (Pha) (Accu-Chek) 1 ea 02 XX Last administered on 10/06/18at 01:54; Admin Dose 1 EA; Start 10/06/18 at 02:00 Miscellaneous Information 1 ea NOTE XX ; Start 10/05/18 at 07:00 Glucose (Glutose) 15 gm Q15M PRN PO DECREASED GLUCOSE; Start 10/05/18 at 07:00 Glucose (Glutose) 22.5 gm Q15M PRN PO DECREASED GLUCOSE; Start 10/05/18 at 07:00 Dextrose (D50w Syringe) 25 ml Q15M PRN IV DECREASED GLUCOSE; Start 10/05/18 at 07:00 Dextrose (D50w Syringe) 50 ml Q15M PRN IV DECREASED GLUCOSE; Start 10/05/18 at 07:00 Glucagon (Glucagen) 1 mg Q15M PRN IM DECREASED GLUCOSE; Start 10/05/18 at 07:00 Glucose (Glutose) 15 gm Q15M PRN BUCCAL DECREASED GLUCOSE; Start 10/05/18 at 07:00 Acetaminophen/ Hydrocodone Bitart ([place] (5/325)) 1 tab Q6H PRN GTB MODERATE PAIN LEVEL 4-6 Last administered on 10/05/18at 14:49; Admin Dose 1 TAB; Start 10/05/18 at 11:00 Insulin Glargine (Lantus) 18 units QHS SC Last administered on 10/05/18at 21:34; Admin Dose 18 UNITS; Start 10/05/18 at 21:00 Allergies: Coded Allergies: Sulfa (Sulfonamide Antibiotics) (Verified Allergy, Unknown, 10/04/18) Past Surgical History Past Surgical Hx: other Social History Alcohol Use: other (unknown) Smoking Status: Never smoker Drug Use: other (unknown) Exam/Review of Systems Exam Vitals Vital Signs Date Temp Pulse Resp B/P (MAP) Pulse Ox O2 O2 Flow FiO2 Time Delivery Rate 10/06/18 104 08:10 10/06/18 96 5.0 28 07:51 10/06/18 20 Aerosol 07:51 10/06/18 100.5 147/86 07:32 (106) Intake and Output 10/05/18 10/05/18 10/06/18 1515:00 23:00 07:00 IntakeIntake Total 610 ml 660 ml 700 ml BalanceBalance 610 ml 660 ml 700 ml Exam H EENT exam; supple neck, no JVD. No lymphadenopathy. Midline trachea. No thyromegaly. Patient has fair dentition. Tracheostomy in place. Attached to T-piece. Chest exam; clear to auscultation. S1-S2 audible, no murmurs. Regular rhythm. Abdomen exam; soft, G-tube in place. No organomegaly. Bowel sounds audible. Extremity exam; no peripheral edema. 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 Results Result Diagram: 10/06/18 0525 10/06/18 0525 Results 24hrs Laboratory Tests Test 10/05/18 14:17 10/05/18 14:50 10/05/18 17:35 10/05/18 21:17 Bedside Glucose 461 *H 401 *H 147 324 H Test 10/06/18 01:51 10/06/18 05:25 10/06/18 09:00 Bedside Glucose 199 268 H White Blood Count 5.7 # Red Blood Count 3.54 L Hemoglobin 10.4 L Hematocrit 32.4 L Mean Corpuscular 91.5 Volume Mean Corpuscular 29.4 Hemoglobin Mean Corpuscular 32.1 Hemoglobin Concent Red Cell Distribution 12.9 Width Platelet Count 260 Mean Platelet Volume 11.7 H Immature Granulocytes 0.900 H % Neutrophils % 54.6 Lymphocytes % 29.7 Monocytes % 9.0 Eosinophils % 4.6 Basophils % 1.2 Nucleated Red Blood 0.0 Cells % Immature Granulocytes 0.050 H # Neutrophils # 3.1 Lymphocytes # 1.7 Monocytes # 0.5 Eosinophils # 0.3 Basophils # 0.1 Nucleated Red Blood 0.0 Cells # Sodium Level 140 Potassium Level 3.8 Chloride Level 109 Carbon Dioxide Level 24 Anion Gap 7 Blood Urea Nitrogen 9 Creatinine 0.45 Est Glomerular > 60 Filtrat Rate mL/min Glucose Level 190 # Calcium Level 9.0 Medications Medication Current Medications Sodium Chloride 1,000 ml @ 50 mls/hr Q20H IV Last administered on 10/06/18at 00:08; Admin Dose 50 MLS/HR; Start 10/04/18 at 09:39 IV Flush (NS 3 ml) 3 ml PER PROTOCOL IV ; Start 10/04/18 at 10:00 Ondansetron HCl (Zofran Tab) 4 mg Q6H PRN PO NAUSEA/VOMITING; Start 10/04/18 at 10:00 Acetaminophen (Tylenol Supp) 650 mg Q6H PRN [place] .PAIN 1-3 OR TEMP; Start 10/04/18 at 10:00 Docusate Sodium (Colace) 100 mg Q12H PRN PO .CONSTIPATION; Start 10/04/18 at 10:00 Magnesium Hydroxide (Milk Of Mag) 30 ml DAILY PRN PO .CONSTIPATION; Start 10/04/18 at 10:00 Bisacodyl (Dulcolax) 5 mg DAILY PRN PO .CONSTIPATION; Start 10/04/18 at 10:00 Bisacodyl (Dulcolax Supp) 10 mg DAILY PRN DC .CONSTIPATION; Start 10/04/18 at 10:00 Pantoprazole (Protonix Tab) 40 mg DAILY@06 PO Last administered on 10/06/18at 05:32; Admin Dose 40 MG; Start 10/05/18 at 06:00 Ceftriaxone Sodium 50 ml @ 100 mls/hr Q24H IVPB Last administered on 10/05/18at 11:07; Admin Dose 100 MLS/HR; Start 10/04/18 at 11:00 Enoxaparin Sodium (Lovenox) 40 mg DAILY SC Last administered on 10/06/18 09:13; Admin Dose 40 MG; Start 10/04/18 at 11:30 Albuterol/ Ipratropium (Duoneb) 3 ml Q6H RESP THERAPY HHN Last administered on 10/06/18 07:51; Admin Dose 3 ML; Start 10/04/18 at 14:00 Acetaminophen (Tylenol Liquid (Ped)) 160 mg Q4H PRN GTB MILD PAIN(1-3) OR TEMP>38C Last administered on 10/05/18 17:39; Admin Dose 160 MG; Start 10/04/18 at 14:30 Aspirin (Aspirin) 81 mg DAILY GTB Last administered on 10/06/18 09:05; Admin D ose 81 MG; Start 10/04/18 at 15:00 Baclofen (Lioresal) 10 mg Q6H PRN GTB MUSCLE SPASMS Last administered on 10/05/18 21:51; Admin Dose 10 MG; Start 10/04/18 at 15:00 Clonidine (Catapres) 0.2 mg Q4H PRN GTB FOR SBP ABOVE 170; Start 10/04/18 at 15:00 Famotidine (Pepcid) 20 mg BID GTB Last administered on 10/06/18 09:05; Admin Dose 20 MG; Start 10/04/18 at 21:00 Guaifenesin (Robitussin Liquid Cup) 300 mg QID PRN PO CONGESTION/COUGH; Start 10/05/18 at 11:00 Hydralazine HCl (Apresoline) 25 mg TID GTB ; Start 10/04/18 at 13:00 Hydromorphone HCl (Dilaudid) 2 mg Q6H PRN GTB PAIN LEVEL 7-10 Last administered on 10/05/18at 10:47; Admin Dose 2 MG; Start 10/04/18 at 15:00 Loperamide HCl (Imodium Cap) 2 mg TID PRN GTB DIARRHEA; Start 10/04/18 at 15:00 Lorazepam (Ativan) 0.25 mg Q8H PRN GTB ANXIETY; Start 10/04/18 at 15:00 Metoprolol Tartrate (Lopressor) 50 mg BID GTB Last administered on 10/06/18 09:06; Admin Dose 50 MG; Start 10/04/18 at 21:00 Ascorbic Acid (Vitamin C) 1,000 mg DAILY GTB Last administered on 10/06/18 09:05; Admin Dose 1,000 MG; Start 10/04/18 at 15:00 Insulin Aspart (Novolog Insulin Pen) NOVOLOG *MODERATE* ALGORITHM WITH MEALS BEDTIME SC Last administered on 10/06/18 09:13; Admin Dose 8 UNIT; Start 10/04/18 at 18:00 Ondansetron HCl (Zofran Inj) 4 mg Q6H PRN IV NAUSEA AND/OR VOMITING Last administered on 10/05/18 07:32; Admin Dose 4 MG; Start 10/05/18 at 07:00 Diagnostic Test (Pha) (Accu-Chek) 1 ea 02 XX Last administered on 10/06/18 01:54; Admin Dose 1 EA; Start 10/06/18 at 02:00 Miscellaneous Information 1 ea NOTE XX ; Start 10/05/18 at 07:00 Glucose (Glutose) 15 gm Q15M PRN PO DECREASED GLUCOSE; Start 10/05/18 at 07:00 Glucose (Glutose) 22.5 gm Q15M PRN PO DECREASED GLUCOSE; Start 10/05/18 at 07:00 Dextrose (D50w Syringe) 25 ml Q15M PRN IV DECREASED GLUCOSE; Start 10/05/18 at 07:00 Dextrose (D50w Syringe) 50 ml Q15M PRN IV DECREASED GLUCOSE; Start 10/05/18 at 07:00 Glucagon (Glucagen) 1 mg Q15M PRN IM DECREASED GLUCOSE; Start 10/05/18 at 07:00 Glucose (Glutose) 15 gm Q15M PRN BUCCAL DECREASED GLUCOSE; Start 10/05/18 at 07:00 Acetaminophen/ Hydrocodone Bitart ([place] (5/325)) 1 tab Q6H PRN GTB MODERATE PAIN LEVEL 4-6 Last administered on 10/05/18 14:49; Admin Dose 1 TAB; Start 10/05/18 at 11:00 Insulin Glargine (Lantus) 18 units QHS SC Last administered on 10/05/18 21:34; Admin Dose 18 UNITS; Start 10/05/18 at 21:00 SUZAN ROSS Oct 06, 2018 11:17
[2018-10-06] MEDS: CEFTRIAXONE 1 GM/50 ML (PMX) 50 ML IVPB SCH (11:28)
[2018-10-06] MEDS ORDERED: VANCOMYCIN IV PER PHARMACY XX SCH ×2 (11:30→12:00)
--- NOTE | 2018-10-06 12:14 | PN ---
Date/Time of Note Date/Time of Note DATE: 10/06/18 TIME: 12:12 Assessment/Plan VTE Prophylaxis Risk score (from Ns)>0 risk: 4 SCD applied (from Ns): Yes Pharmacological prophylaxis: NA/contraindicated Pharm contraindication: low risk/ambulating Lines/Catheters IV [facility]from [facility] Peripheral IV Urinary Cath still in place: No Assessment/Plan Assessment/Plan 1. SIRS. Lactic acid is normal 2. Left side pneumonia. Xray chest is positive for Patchy left lower lobe pneumonia. Now with the gram-positive staph aureus bacteremia 3. VDRF with tracheostomy 4. s/p craniotomy on the left. Incomplete data. 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 Brain herniates beyond the margins of the craniectomy. Old posterior right basil ganglia lacunar infarct extending cephalad into the right parietal nichols radiata and centrum semiovale. Laminar necrosis/dystrophic calcification lateral left frontal lobe. Acute hemorrhage considered less likely. Paranasal sinus mucosal disease. Right mastoid air cell disease. 5. Dysphagia with G tube 6. DM type I, uncontrolled 7. Opiate dependence, per SNF record pt was on Dilaudid PO, [place], Tramadol 8. Hypertension Assessment/Plan -Add vancomycin, cw rocephin ? source -We will get echo -ID consult -DVT proph. Lovenox Dr Quintero pulmonary consult -cw insulin [place] 18 units -hypoglycemic measures -Hold hydralazine due to borderline hypotension -GI proph. Protonix -nebs around the clock -c/w tube feeding/gentle -medsurg -cooling measures - cw with IV fluids Result Diagram: 10/06/18 0525 10/06/18 0525 Results 24hrs Laboratory Tests Test 10/05/18 14:17 10/05/18 14:50 10/05/18 17:35 10/05/18 21:17 Bedside Glucose 461 *H 401 *H 147 324 H Test 10/06/18 01:51 10/06/18 05:25 10/06/18 09:00 10/06/18 11:34 Bedside Glucose 199 268 H 154 White Blood Count 5.7 # Red Blood Count 3.54 L Hemoglobin 10.4 L Hematocrit 32.4 L Mean Corpuscular 91.5 Volume Mean Corpuscular 29.4 Hemoglobin Mean Corpuscular 32.1 Hemoglobin Concent Red Cell 12.9 Distribution Width Platelet Count 260 Mean Platelet Volume 11.7 H Immature 0.900 H Granulocytes % Neutrophils % 54.6 Lymphocytes % 29.7 Monocytes % 9.0 Eosinophils % 4.6 Basophils % 1.2 Nucleated Red Blood 0.0 Cells % Immature 0.050 H Granulocytes # Neutrophils # 3.1 Lymphocytes # 1.7 Monocytes # 0.5 Eosinophils # 0.3 Basophils # 0.1 Nucleated Red Blood 0.0 Cells # Sodium Level 140 Potassium Level 3.8 Chloride Level 109 Carbon Dioxide Level 24 Anion Gap 7 Blood Urea Nitrogen 9 Creatinine 0.45 Est Glomerular > 60 Filtrat Rate mL/min Glucose Level 190 # Calcium Level 9.0 Subjective 24 Hr Interval Summary Free Text/Dictation Culture positive for staph aureus Low-grade fevers. Exam/Review of Systems Exam Vitals Vital Signs Date Temp Pulse Resp B/P (MAP) Pulse Ox O2 O2 Flow FiO2 Time Delivery Rate 10/06/18 95 12:00 10/06/18 100.0 18 125/80 95 11:49 (95) 10/06/18 5.0 28 07:51 10/06/18 Aerosol 07:51 Intake and Output 10/05/18 10/05/18 10/06/18 1515:00 23:00 07:00 IntakeIntake Total 610 ml 660 ml 700 ml BalanceBalance 610 ml 660 ml 700 ml Exam H EENT exam; suppl3: Tracheostomy in place. Attached to T-piece. Chest exam; clear to auscultation. S1-S2 audible, no murmurs. Regular rhythm. Abdomen exam; soft, G-tube in place. No organomegaly. Bowel sounds audible. Extremity exam; no peripheral edema. 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 Results Results 24hrs Laboratory Tests Test 10/05/18 14:17 10/05/18 14:50 10/05/18 17:35 10/05/18 21:17 Bedside Glucose 461 *H 401 *H 147 324 H Test 10/06/18 01:51 10/06/18 05:25 10/06/18 09:00 10/06/18 11:34 Bedside Glucose 199 268 H 154 White Blood Count 5.7 # Red Blood Count 3.54 L Hemoglobin 10.4 L Hematocrit 32.4 L Mean Corpuscular 91.5 Volume Mean Corpuscular 29.4 Hemoglobin Mean Corpuscular 32.1 Hemoglobin Concent Red Cell 12.9 Distribution Width Platelet Count 260 Mean Platelet Volume 11.7 H Immature 0.900 H Granulocytes % Neutrophils % 54.6 Lymphocytes % 29.7 Monocytes % 9.0 Eosinophils % 4.6 Basophils % 1.2 Nucleated Red Blood 0.0 Cells % Immature 0.050 H Granulocytes # Neutrophils # 3.1 Lymphocytes # 1.7 Monocytes # 0.5 Eosinophils # 0.3 Basophils # 0.1 Nucleated Red Blood 0.0 Cells # Sodium Level 140 Potassium Level 3.8 Chloride Level 109 Carbon Dioxide Level 24 Anion Gap 7 Blood Urea Nitrogen 9 Creatinine 0.45 Est Glomerular > 60 Filtrat Rate mL/min Glucose Level 190 # Calcium Level 9.0 Medications Medication Current Medications Sodium Chloride 1,000 ml @ 50 mls/hr Q20H IV Last administered on 10/06/18at 00:08; Admin Dose 50 MLS/HR; Start 10/04/18 at 09:39 IV Flush (NS 3 ml) 3 ml PER PROTOCOL IV ; Start 10/04/18 at 10:00 Ondansetron HCl (Zofran Tab) 4 mg Q6H PRN PO NAUSEA/VOMITING; Start 10/04/18 at 10:00 Acetaminophen (Tylenol Supp) 650 mg Q6H PRN [place] .PAIN 1-3 OR TEMP; Start 10/04/18 at 10:00 Docusate Sodium (Colace) 100 mg Q12H PRN PO .CONSTIPATION; Start 10/04/18 at 10:00 Magnesium Hydroxide (Milk Of Mag) 30 ml DAILY PRN PO .CONSTIPATION; Start 10/04/18 at 10:00 Bisacodyl (Dulcolax) 5 mg DAILY PRN PO .CONSTIPATION; Start 10/04/18 at 10:00 Bisacodyl (Dulcolax Supp) 10 mg DAILY PRN [place] .CONSTIPATION; Start 10/04/18 at 10:00 Ceftriaxone Sodium 50 ml @ 100 mls/hr Q24H IVPB Last administered on 10/06/18at 11:28; Admin Dose 100 MLS/HR; Start 10/04/18 at 11:00 Enoxaparin Sodium (Lovenox) 40 mg DAILY SC Last administered on 10/06/18 09:13; Admin Dose 40 MG; Start 10/04/18 at 11:30 Albuterol/ Ipratropium (Duoneb) 3 ml Q6H RESP THERAPY HHN Last administered on 10/06/18 07:51; Admin Dose 3 ML; Start 10/04/18 at 14:00 Acetaminophen (Tylenol Liquid (Ped)) 160 mg Q4H PRN GTB MILD PAIN(1-3) OR TEMP>38C Last administered on 10/05/18 17:39; Admin Dose 160 MG; Start 10/04/18 at 14:30 Aspirin (Aspirin) 81 mg DAILY GTB Last administered on 10/06/18 09:05; Admin Dose 81 MG; Start 10/04/18 at 15:00 Baclofen (Lioresal) 10 mg Q6H PRN GTB MUSCLE SPASMS Last administered on 10/05/18 21:51; Admin Dose 10 MG; Start 10/04/18 at 15:00 Clonidine (Catapres) 0.2 mg Q4H PRN GTB FOR SBP ABOVE 170; Start 10/04/18 at 15:00 Famotidine (Pepcid) 20 mg BID GTB Last administered on 10/06/18 09:05; Admin Dose 20 MG; Start 10/04/18 at 21:00 Guaifenesin (Robitussin Liquid Cup) 300 mg QID PRN PO CONGESTION/COUGH; Start 10/05/18 at 11:00 Loperamide HCl (Imodium Cap) 2 mg TID PRN GTB DIARRHEA; Start 10/04/18 at 15:00 Lorazepam (Ativan) 0.25 mg Q8H PRN GTB ANXIETY; Start 10/04/18 at 15:00 Metoprolol Tartrate (Lopressor) 50 mg BID GTB Last administered on 10/06/18 09:06; Admin Dose 50 MG; Start 10/04/18 at 21:00 Ascorbic Acid (Vitamin C) 1,000 mg DAILY GTB Last administered on 10/06/18 09:05; Admin Dose 1,000 MG; Start 10/04/18 at 15:00 Insulin Aspart (Novolog Insulin Pen) NOVOLOG *MODERATE* ALGORITHM WITH MEALS BEDTIME SC Last administered on 10/06/18 11:45; Admin Dose 2 UNIT; Start 10/04/18 at 18:00 Ondansetron HCl (Zofran Inj) 4 mg Q6H PRN IV NAUSEA AND/OR VOMITING Last administered on 10/05/18at 07:32; Admin Dose 4 MG; Start 10/05/18 at 07:00 Diagnostic Test (Pha) (Accu-Chek) 1 ea 02 XX Last administered on 10/06/18at 01:54; Admin Dose 1 EA; Start 10/06/18 at 02:00 Miscellaneous Information 1 ea NOTE XX ; Start 10/05/18 at 07:00 Glucose (Glutose) 15 gm Q15M PRN PO DECREASED GLUCOSE; Start 10/05/18 at 07:00 Glucose (Glutose) 22.5 gm Q15M PRN PO DECREASED GLUCOSE; Start 10/05/18 at 07:00 Dextrose (D50w Syringe) 25 ml Q15M PRN IV DECREASED GLUCOSE; Start 10/05/18 at 07:00 Dextrose (D50w Syringe) 50 ml Q15M PRN IV DECREASED GLUCOSE; Start 10/05/18 at 07:00 Glucagon (Glucagen) 1 mg Q15M PRN IM DECREASED GLUCOSE; Start 10/05/18 at 07:00 Glucose (Glutose) 15 gm Q15M PRN BUCCAL DECREASED GLUCOSE; Start 10/05/18 at 07:00 Acetaminophen/ Hydrocodone Bitart ([place] (5/325)) 1 tab Q6H PRN GTB MODERATE PAIN LEVEL 4-6 Last administered on 10/05/18at 14:49; Admin Dose 1 TAB; Start 10/05/18 at 11:00 Insulin Glargine (Lantus) 18 units QHS SC Last administered on 10/05/18at 21:34; Admin Dose 18 UNITS; Start 10/05/18 at 21:00 Vancomycin HCl (Vanco Iv Per Pharmacy) VANCOMYCIN PER PHARMACY PER PROTOCOL XX ; Start 10/06/18 at 11:30 Vancomycin HCl 1.5 gm/Sodium Chloride 250 ml @ 83.333 mls/ hr LOADING DOSE ONCE IVPB ; Start 10/06/18 at 12:30; Stop 10/06/18 at 15:29 Vancomycin HCl (Vanco Iv Per Pharmacy) VANCOMYCIN PER PHARMACY PER PROTOCOL XX ; Start 10/06/18 at 12:00 STEPHANY MCNAIR MD Oct 06, 2018 12:14
[2018-10-06] MEDS ORDERED: VANCOMYCIN HCL 1.5 GM in SOD CHLORIDE 0.9% 250 ML IVPB ONE (12:30)
--- NOTE | 2018-10-06 16:13 | CONS ---
DATE OF ADMISSION: 10/04/2018 DATE OF CONSULTATION: 10/06/2018 TYPE OF CONSULTATION: Infectious Disease. REASON FOR CONSULTATION: Antibiotic management. HISTORY OF PRESENT ILLNESS: Juli Hidalgo is a 23-year-old female who comes in for evaluatio n of a number of problems. She resides in [facility] [place], baseline mental status is unclear. She was re portedly more active than was noted today. Vital signs have been normal. She has some left eyebrow swelling. She is ventilator dependent respiratory failure. Her past problems include status post cr aniotomy on the left side, a tracheostomy placed 09/2017. The patient also has GERD. PAST MEDICAL HISTORY: As outlined. FAMILY HISTORY: Noncontributory. SOCIAL HISTORY: She does not smoke, drink or abuse drugs. ALLERGIES: NONE TO PENICILLIN, SULFA OR FOODS. MEDICATIONS: Per chart. REVIEW OF SYSTEMS: As per HPI. PHYSICAL EXAMINATION: GENERAL: The patient is a chronically ill-appearing female, in no acute distress. VITAL SIGNS: Stable. She is afebrile. SKIN: Without generalized rash. HEENT: Within normal limits. She has a tracheostomy which is the site is clean, dry and intact. CHEST: Decreased breath sounds at the bases. HEART: Without murmur or gallop. ABDOMEN: Soft, nontender, without organosplenomegaly or masses. EXTREMITIES: Without cyanosis, clubbing, or edema. RECTAL AND GENITAL: Deferred. NEUROLOGIC: No focal neurological abnormality. ANCILLARY LABORATORY DATA: White count of 13.7, H and H of 13.1 and 39.3, platelet count 318,000. B UN and creatinine 13/0.4. So, the patient has an elevated white count. Her chest x-ray shows patchy left lower lobe pneumonia. She has a tracheostomy, gastrostomy tube in the left abdomen. Today, her left basilar infiltrate i s improved. 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 Blood cultures are positive for Staph species and also for gram-positive rods which is pro bably contaminant. She has normal respiratory ramone and currently, she is on vancomycin and ceftriax one. Urine culture is negative after 48 hours. I am going to repeat her blood cultures since 1 has staph species, the other has gram-positive rods, which are probably contamination. She has patchy le ft lower lobe infiltrate, so she may benefit since she is from a jail to be on something like cefepime. . Actually, the chest x-ray seems to be improving, so we will continue her on ceftr iaxone for the time being and just repeat the blood cultures. Dictated By: ALICIA PAUL MD, JD/SAROJ Conf#: [id number] DID#: [id number]
[2018-10-06] MEDS ORDERED: INSULIN ASPART [NOVOLOG] 3 ML PEN SC SCH (18:00)
[2018-10-06] MEDS: Insulin NOVOLOG SS MODERATE Algorithm(NPO/TPN/ENTERAL FEEDS) SC SCH (18:20)
[2018-10-06] MEDS: VANCOMYCIN 1 GM 250 ML IVPB SCH (21:10)
[2018-10-06] MEDS: INSULIN GLARGINE [LANTus] (100 UNITS/ML) SYG SC SCH (21:31)
[2018-10-07] VITALS (12 sets, daily range): BP systolic 101–138; BP diastolic 62–88; PULSE 82–111; RESP 18–20
[2018-10-07] MEDS: ALBUTEROL/IPRATROPIUM (NEB) 3 ML AMP HHN SCH ×4 (01:31→19:34)
[2018-10-07] MEDS: ACCU-CHEK XX SCH (02:00)
[2018-10-07] MEDS: VANCOMYCIN 1 GM 250 ML IVPB SCH (06:39)
[2018-10-07] MEDS: Insulin NOVOLOG SS MODERATE Algorithm(NPO/TPN/ENTERAL FEEDS) SC SCH ×4 (06:50→18:08)
[2018-10-07] MEDS: METOPROLOL 50 MG TAB GTB SCH ×2 (10:29→10:31)
[2018-10-07] MEDS: ASCORBIC ACID 500 MG TAB GTB SCH (10:30)
[2018-10-07] MEDS: ASPIRIN 81 MG TAB GTB SCH (10:31)
[2018-10-07] MEDS: FAMOTIDINE 20 MG TAB GTB SCH ×2 (10:31→21:15)
[2018-10-07] MEDS: CEFTRIAXONE 1 GM/50 ML (PMX) 50 ML IVPB SCH (10:32)
[2018-10-07] MEDS: ENOXAPARIN 40 MG/0.4 ML SYG SC SCH (11:04)
--- NOTE | 2018-10-07 11:07 | CONS ---
Assessment/Plan Assessment/Plan Assessment/Plan (Daily) Chest x-ray was reviewed from yesterday which is showing significant improvement in left lower lobe infiltrate. Assessment recommendations; 1. Patient with history of chronic encephalopathy maintained on T-piece via tracheostomy admitted for fever with significant clinical and radiological improvement with markedly improved leukocytosis. 2. History of muscle spasms. Continue current supportive care. Consider discharge on current antibiotics per ID recommendations. Consultation Date/Type/Reason Admit Date/Time Oct 04, 2018 at 00:30 Initial Consult Date 10/06/18 Type of Consult Pulmonary Patient is a 23-year-old woman who [facility] low-grade fever. Upon evaluation a chest x-ray was done which is showing possible left lower lobe pneumonia. Patient started on Rocephin with improvement in leukocytosis. Because of chronic encephalopathy patient is unable to give any history by herself whatsoever. Patient however did not appear to be in any distress whatsoever. Past medical history; 1. 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 2. History of tracheostomy, maintained on T-piece. 3. History of muscle spasms. 4. Chronic dysphagia, status post G-tube placement in the past. Medications; reviewed. Allergies; sulfa drugs. Family history, social history, occupational history is noncontributory. Review of systems; unable to be obtained. General exam; young woman, awake, smiles on eye contact but is noncommunicative. Date/Time of Note DATE: 10/07/18 TIME: 11:05 24 HR Interval Summary Free Text/Dictation Patient's condition is stable. Has remained hemodynamically stable. General exam; young female, on T-piece via tracheostomy, awake but noncomm unicative. Currently in no distress. Exam/Review of Systems Exam Vitals Vital Signs Date Temp Pulse Resp B/P (MAP) Pulse Ox O2 O2 Flow FiO2 Time Delivery Rate 10/07/18 100 5.0 28 08:39 10/07/18 100 16 Aerosol 08:39 T Tube 10/07/18 98.3 101/62 07:31 (75) Intake and Output 10/06/18 10/06/18 10/07/18 1515:00 23:00 07:00 IntakeIntake Total 50 ml 1680 ml BalanceBalance 50 ml 1680 ml Exam HEENT exam; supple neck, no JVD. No lymphadenopathy. Midline trachea. No thyromegaly. Tracheostomy in place. Attached to T-piece. Patient has fair dentition. Chest exam; diminished breath sounds bilaterally no added sounds. S1-S2 audible, no murmurs. Regular rhythm. Abdomen exam; soft, no organomegaly. G-tube in place. Bowel sounds audible. Extremity exam; no peripheral edema. Patient has a flexion contractures. BUSINESS MGR exam; patient awake but noncommunicative but smiles on eye contact. Results Result Diagram: 10/07/18 0513 10/07/18 05 Results 24hrs Laboratory Tests Test 10/06/18 11:34 10/06/18 17:38 10/06/18 21:12 10/07/18 00:39 Bedside Glucose 154 224 H 126 54 L Test 10/07/18 01:17 10/07/18 01:39 10/07/18 02:10 10/07/18 05:13 Bedside Glucose 137 97 169 White Blood Count 5.6 Red Blood Count 3.63 L Hemoglobin 10.9 L Hematocrit 32.6 L Mean Corpuscular 89.8 Volume Mean Corpuscular 30.0 Hemoglobin Mean Corpuscular 33.4 Hemoglobin Concent Red Cell 12.7 Distribution Width Platelet Count 258 Mean Platelet Volume 11.5 H Immature 0.900 H Granulocytes % Neutrophils % 55.5 Lymphocytes % 24.2 Monocytes % 12.2 H Eosinophils % 6.5 Basophils % 0.7 Nucleated Red Blood 0.0 Cells % Immature 0.050 H Granulocytes # Neutrophils # 3.1 Lymphocytes # 1.4 Monocytes # 0.7 Eosinophils # 0.4 Basophils # 0.0 Nucleated Red Blood 0.0 Cells # Sodium Level 139 Potassium Level 3.6 Chloride Level 106 Carbon Dioxide Level 27 Anion Gap 6 Blood Urea Nitrogen 5 L Creatinine 0.39 L Est Glomerular > 60 Filtrat Rate mL/min Glucose Level 169 Calcium Level 8.7 Phosphorus Level 3.4 Magnesium Level 1.8 Test 10/07/18 06:40 Bedside Glucose 199 Medications Medication Current Medications IV Flush (NS 3 ml) 3 ml PER PROTOCOL IV ; Start 10/04/18 at 10:00 Ondansetron HCl (Zofran Tab) 4 mg Q6H PRN PO NAUSEA/VOMITING; Start 10/04/18 at 10:00 Acetaminophen (Tylenol Supp) 650 mg Q6H PRN [place] .PAIN 1-3 OR TEMP; Start 10/04/18 at 10:00 Docusate Sodium (Colace) 100 mg Q12H PRN PO .CONSTIPATION; Start 10/04/18 at 10:00 Magnesium Hydroxide (Milk Of Mag) 30 ml DAILY PRN PO .CONSTIPATION; Start 10/04/18 at 10:00 Bisacodyl (Dulcolax) 5 mg DAILY PRN PO .CONSTIPATION; Start 10/04/18 at 10:00 Bisacodyl (Dulcolax Supp) 10 mg DAILY PRN [place] .CONSTIPATION; Start 10/04/18 at 10:00 Ceftriaxone Sodium 50 ml @ 100 mls/hr Q24H IVPB Last administered on 10/07/18 10:32; Admin Dose 100 MLS/HR; Start 10/04/18 at 11:00 Enoxaparin Sodium (Lovenox) 40 mg DAILY SC Last administered on 10/07/18 11: 04; Admin Dose 40 MG; Start 10/04/18 at 11:30 Albuterol/ Ipratropium (Duoneb) 3 ml Q6H RESP THERAPY HHN Last administered on 10/07/18 08:39; Admin Dose 3 ML; Start 10/04/18 at 14:00 Acetaminophen (Tylenol Liquid (Ped)) 160 mg Q4H PRN GTB MILD PAIN(1-3) OR TEMP>38C Last administered on 10/05/18 17:39; Admin Dose 160 MG; Start 10/04/18 at 14:30 Aspirin (Aspirin) 81 mg DAILY GTB Last administered on 10/07/18 10:31; Admin Dose 81 MG; Start 10/04/18 at 15:00 Baclofen (Lioresal) 10 mg Q6H PRN GTB MUSCLE SPASMS Last administered on 10/05/18 21:51; Admin Dose 10 MG; Start 10/04/18 at 15:00 Clonidine (Catapres) 0.2 mg Q4H PRN GTB FOR SBP ABOVE 170; Start 10/04/18 at 15:00 Famotidine (Pepcid) 20 mg BID GTB Last administered on 10/07/18 10:31; Admin Dose 20 MG; Start 10/04/18 at 21:00 Guaifenesin (Robitussin Liquid Cup) 300 mg QID PRN PO CONGESTION/COUGH; Start 10/05/18 at 11:00 Loperamide HCl (Imodium Cap) 2 mg TID PRN GTB DIARRHEA; Start 10/04/18 at 15:00 Lorazepam (Ativan) 0.25 mg Q8H PRN GTB ANXIETY; Start 10/04/18 at 15:00 Metoprolol Tartrate (Lopressor) 50 mg BID GTB Last administered on 10/07/18at 10:31; Admin Dose 50 MG; Start 10/04/18 at 21:00 Ascorbic Acid (Vitamin C) 1,000 mg DAILY GTB Last administered on 10/07/18at 10:30; Admin Dose 1,000 MG; Start 10/04/18 at 15:00 Ondansetron HCl (Zofran Inj) 4 mg Q6H PRN IV NAUSEA AND/OR VOMITING Last administered on 10/05/18at 07:32; Admin Dose 4 MG; Start 10/05/18 at 07:00 Diagnostic Test (Pha) (Accu-Chek) 1 ea 02 XX Last administered on 10/07/18at 02:00; Admin Dose 1 EA; Start 10/06/18 at 02:00 Miscellaneous Information 1 ea NOTE XX ; Start 10/05/18 at 07:00 Glucose (Glutose) 15 gm Q15M PRN PO DECREASED GLUCOSE; Start 10/05/18 at 07:00 Glucose (Glutose) 22.5 gm Q15M PRN PO DECREASED GLUCOSE; Start 10/05/18 at 07:00 Dextrose (D50w Syringe) 25 ml Q15M PRN IV DECREASED GLUCOSE Last administered on 10/07/18at 00:56; Admin Dose 25 ML; Start 10/05/18 at 07:00 Dextrose (D50w Syringe) 50 ml Q15M PRN IV DECREASED GLUCOSE; Start 10/05/18 at 07:00 Glucagon (Glucagen) 1 mg Q15M PRN IM DECREASED GLUCOSE; Start 10/05/18 at 07:00 Glucose (Glutose) 15 gm Q15M PRN BUCCAL DECREASED GLUCOSE; Start 10/05/18 at 07:00 Acetaminophen/ Hydrocodone Bitart ([place] (5/325)) 1 tab Q6H PRN GTB MODERATE PAIN LEVEL 4-6 Last administered on 10/05/18at 14:49; Admin Dose 1 TAB; Start 10/05/18 at 11:00 Insulin Glargine (Lantus) 18 units QHS SC Last administered on 10/06/18at 21:31; Admin Dose 18 UNITS; Start 10/05/18 at 21:00 Vancomycin HCl (Vanco Iv Per Pharmacy) VANCOMYCIN PER PHARMACY PER PROTOCOL XX ; Start 10/06/18 at 12:00 Vancomycin HCl 250 ml @ 125 mls/hr Q8H IVPB Last administered on 10/07/18at 06:39; Admin Dose 125 MLS/HR; Start 10/06/18 at 21:00 Insulin Aspart (Novolog Insulin Pen) (Adult SC Insulin - Moder... Q6 SC Last administered on 10/07/18at 06:50; Admin Dose 4 UNIT; Start 10/06/18 at 18:00 Miscellaneous Information (*Rx Drug Level Order Reminder*) VANCO TROUGH @ 1,200 ON... 1200 ONCE XX ; Start 10/07/18 at 12:00; Stop 10/07/18 at 12:01 SUZAN ROSS Oct 07, 2018 11:07
--- NOTE | 2018-10-07 13:54 | PN ---
Date/Time of Note Date/Time of Note DATE: 10/07/18 TIME: 13:50 Assessment/Plan VTE Prophylaxis Risk score (from Ns)>0 risk: 3 SCD applied (from Ns): Yes Pharmacological prophylaxis: NA/contraindicated Pharm contraindication: low risk/ambulating Lines/Catheters [facility] Peripheral IV Urinary Cath still in place: No Assessment/Plan Assessment/Plan Assessment/Plan 1. SIRS. Lactic acid is normal 2. Left side pneumonia. Xray chest is positive for Patchy left lower lobe pneumonia. Now with the gram-positive staph bacteremia, + TRACH culture 3. VDRF with tracheostomy 4. s/p craniotomy on the left. Incomplete data. 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 Brain herniates beyond the margins of the craniectomy. Old posterior right basil ganglia lacunar infarct extending cephalad into the right parietal nichlos radiata and centrum semiovale. Laminar necrosis/dystrophic calcification lateral left frontal lobe. Acute hemorrhage considered less likely. Paranasal sinus mucosal disease. Right mastoid air cell disease. 5. Dysphagia with G tube 6. DM type I, uncontrolled 7. Opiate dependence, per SNF record pt was on Dilaudid PO, [place], Tramadol 8. Hypertension Assessment/Plan -cw vanco/rocephin - Repeat bld cx -DVT proph. Lovenox Dr Quintero pulmonary consult -cw insulin [place] 18 units -hypoglycemic measures -Hold hydralazine due to borderline hypotension -GI proph. Protonix -nebs around the clock -c/w tube feeding/gentle -medsurg -cooling measures Result Diagram: 10/07/18 0513 10/07/18 0513 Results 24hrs Laboratory Tests Test 10/06/18 17:38 10/06/18 21:12 10/07/18 00:39 10/07/18 01:17 Bedside Glucose 224 H 126 54 L 137 Test 10/07/18 01:39 10/07/18 02:10 10/07/18 05:13 10/07/18 06:40 Bedside Glucose 97 169 199 White Blood Count 5.6 Red Blood Count 3.63 L Hemoglobin 10.9 L Hematocrit 32.6 L Mean Corpuscular 89.8 Volume Mean Corpuscular 30.0 Hemoglobin Mean Corpuscular 33.4 Hemoglobin Concent Red Cell 12.7 Distribution Width Platelet Count 258 Mean Platelet Volume 11.5 H Immature 0.900 H Granulocytes % Neutrophils % 55.5 Lymphocytes % 24.2 Monocytes % 12.2 H Eosinophils % 6.5 Basophils % 0.7 Nucleated Red Blood 0.0 Cells % Immature 0.050 H Granulocytes # Neutrophils # 3.1 Lymphocytes # 1.4 Monocytes # 0.7 Eosinophils # 0.4 Basophils # 0.0 Nucleated Red Blood 0.0 Cells # Sodium Level 139 Potassium Level 3.6 Chloride Level 106 Carbon Dioxide Level 27 Anion Gap 6 Blood Urea Nitrogen 5 L Creatinine 0.39 L Est Glomerular > 60 Filtrat Rate mL/min Glucose Level 169 Calcium Level 8.7 Phosphorus Level 3.4 Magnesium Level 1.8 Test 10/07/18 11:27 10/07/18 12:11 Bedside Glucose 146 Vancomycin Level 19.0 Trough Subjective 24 Hr Interval Summary Free Text/Dictation low-grade fevers yesterday Chest x-ray is improved Exam/Review of Systems Exam Vitals Vital Signs Date Temp Pulse Resp B/P (MAP) Pulse Ox O2 O2 Flow FiO2 Time Delivery Rate 10/07/18 84 12:07 10/07/18 97.5 18 138/71 99 11:31 (93) 10/07/18 5.0 28 08:39 10/07/18 Aerosol 08:39 T Tube Intake and Output 10/06/18 10/06/18 10/07/18 1515:00 23:00 07:00 IntakeIntake Total 50 ml 1680 ml BalanceBalance 50 ml 1680 ml Exam H EENT exam; suppl3: Tracheostomy in place. Attached to T-piece. Chest exam; clear to auscultation. S1-S2 audible, no murmurs. Regular rhythm. Abdomen exam; soft, G-tube in place. No organomegaly. Bowel sounds audible. Extremity exam; no peripheral edema. SHOE HANDLER exam; patient is awake but noncommunicative. Results Results 24hrs Laboratory Tests Test 10/06/18 17:38 10/06/18 21:12 10/07/18 00:39 10/07/18 01:17 Bedside Glucose 224 H 126 54 L 137 Test 10/07/18 01:39 10/07/18 02:10 10/07/18 05:13 10/07/18 06:40 Bedside Glucose 97 169 199 White Blood Count 5.6 Red Blood Count 3.63 L Hemoglobin 10.9 L Hematocrit 32.6 L Mean Corpuscular 89.8 Volume Mean Corpuscular 30.0 Hemoglobin Mean Corpuscular 33.4 Hemoglobin Concent Red Cell 12.7 Distribution Width Platelet Count 258 Mean Platelet Volume 11.5 H Immature 0.900 H Granulocytes % Neutrophils % 55.5 Lymphocytes % 24.2 Monocytes % 12.2 H Eosinophils % 6.5 Basophils % 0.7 Nucleated Red Blood 0.0 Cells % Immature 0.050 H Granulocytes # Neutrophils # 3.1 Lymphocytes # 1.4 Monocytes # 0.7 Eosinophils # 0.4 Basophils # 0.0 Nucleated Red Blood 0.0 Cells # Sodium Level 139 Potassium Level 3.6 Chloride Level 106 Carbon Dioxide Level 27 Anion Gap 6 Blood Urea Nitrogen 5 L Creatinine 0.39 L Est Glomerular > 60 Filtrat Rate mL/min Glucose Level 169 Calcium Level 8.7 Phosphorus Level 3.4 Magnesium Level 1.8 Test 10/07/18 11:27 10/07/18 12:11 Bedside Glucose 146 Vancomycin Level 19.0 Trough Medications Medication Current Medications IV Flush (NS 3 ml) 3 ml PER PROTOCOL IV ; Start 10/04/18 at 10:00 Ondansetron HCl (Zofran Tab) 4 mg Q6H PRN PO NAUSEA/VOMITING; Start 10/04/18 at 10:00 Acetaminophen (Tylenol Supp) 650 mg Q6H PRN [place] .PAIN 1-3 OR TEMP; Start 10/04/18 at 10:00 Docusate Sodium (Colace) 100 mg Q12H PRN PO .CONSTIPATION; Start 10/04/18 at 10:00 Magnesium Hydroxide (Milk Of Mag) 30 ml DAILY PRN PO .CONSTIPATION; Start 10/04/18 at 10:00 Bisacodyl (Dulcolax) 5 mg DAILY PRN PO .CONSTIPATION; Start 10/04/18 at 10:00 Bisacodyl (Dulcolax Supp) 10 mg DAILY PRN [place] .CONSTIPATION; Start 10/04/18 at 10:00 Ceftriaxone Sodium 50 ml @ 100 mls/hr Q24H IVPB Last administered on 10/07/18at 10:32; Admin Dose 100 MLS/HR; Start 10/04/18 at 11:00 Enoxaparin Sodium (Lovenox) 40 mg DAILY SC Last administered on 10/07/18 11:04; Admin Dose 40 MG; Start 10/04/18 at 11:30 Albuterol/ Ipratropium (Duoneb) 3 ml Q6H RESP THERAPY HHN Last administered on 10/07/18 08:39; Admin Dose 3 ML; Start 10/04/18 at 14:00 Acetaminophen (Tylenol Liquid (Ped)) 160 mg Q4H PRN GTB MILD PAIN(1-3) OR TEMP>38C Last administered on 10/05/18 17:39; Admin Dose 160 MG; Start 10/04/18 at 14:30 Aspirin (Aspirin) 81 mg DAILY GTB Last administered on 10/07/18 10:31; Admin Dose 81 MG; Start 10/04/18 at 15:00 Baclofen (Lioresal) 10 mg Q6H PRN GTB MUSCLE SPASMS Last administered on 10/05/18 21:51; Admin Dose 10 MG; Start 10/04/18 at 15:00 Clonidine (Catapres) 0.2 mg Q4H PRN GTB FOR SBP ABOVE 170; Start 10/04/18 at 1 5:00 Famotidine (Pepcid) 20 mg BID GTB Last administered on 10/07/18 10:31; Admin Dose 20 MG; Start 10/04/18 at 21:00 Guaifenesin (Robitussin Liquid Cup) 300 mg QID PRN PO CONGESTION/COUGH; Start 10/05/18 at 11:00 Loperamide HCl (Imodium Cap) 2 mg TID PRN GTB DIARRHEA; Start 10/04/18 at 15:00 Lorazepam (Ativan) 0.25 mg Q8H PRN GTB ANXIETY; Start 10/04/18 at 15:00 Metoprolol Tartrate (Lopressor) 50 mg BID GTB Last administered on 10/07/18 10:31; Admin Dose 50 MG; Start 10/04/18 at 21:00 Ascorbic Acid (Vitamin C) 1,000 mg DAILY GTB Last administered on 10/07/18 10:30; Admin Dose 1,000 MG; Start 10/04/18 at 15:00 Ondansetron HCl (Zofran Inj) 4 mg Q6H PRN IV NAUSEA AND/OR VOMITING Last admin istered on 10/05/18at 07:32; Admin Dose 4 MG; Start 10/05/18 at 07:00 Diagnostic Test (Pha) (Accu-Chek) 1 ea 02 XX Last administered on 10/07/18at 02:00; Admin Dose 1 EA; Start 10/06/18 at 02:00 Miscellaneous Information 1 ea NOTE XX ; Start 10/05/18 at 07:00 Glucose (Glutose) 15 gm Q15M PRN PO DECREASED GLUCOSE; Start 10/05/18 at 07:00 Glucose (Glutose) 22.5 gm Q15M PRN PO DECREASED GLUCOSE; Start 10/05/18 at 07:00 Dextrose (D50w Syringe) 25 ml Q15M PRN IV DECREASED GLUCOSE Last administered on 10/07/18at 00:56; Admin Dose 25 ML; Start 10/05/18 at 07:00 Dextrose (D50w Syringe) 50 ml Q15M PRN IV DECREASED GLUCOSE; Start 10/05/18 at 07:00 Glucagon (Glucagen) 1 mg Q15M PRN IM DECREASED GLUCOSE; Start 10/05/18 at 07:00 Glucose (Glutose) 15 gm Q15M PRN BUCCAL DECREASED GLUCOSE; Start 10/05/18 at 07 :00 Acetaminophen/ Hydrocodone Bitart ([place] (5/325)) 1 tab Q6H PRN GTB MODERATE PAIN LEVEL 4-6 Last administered on 10/05/18at 14:49; Admin Dose 1 TAB; Start 10/05/18 at 11:00 Insulin Glargine (Lantus) 18 units QHS SC Last administered on 10/06/18at 21:31; Admin Dose 18 UNITS; Start 10/05/18 at 21:00 Vancomycin HCl (Vanco Iv Per Pharmacy) VANCOMYCIN PER PHARMACY PER PROTOCOL XX ; Start 10/06/18 at 12:00 Insulin Aspart (Novolog Insulin Pen) (Adult SC Insulin - Moder... Q6 SC Last administered on 10/07/18at 11:38; Admin Dose 1 UNIT; Start 10/06/18 at 18:00 STEPHANY MCNAIR MD Oct 07, 2018 13:54
--- NOTE | 2018-10-07 14:40 | CONS ---
Assessment/Plan Assessment/Plan Hospital Course (Demo Recall) Patient is awake lying comfortably in bed no fevers overnight T-max yesterday 100 point 5 in the morning WBC 5.6 no shift no bands BUN 5 creatinine 0.39 Microbiology: Blood culture on admission grew coag negative staph species, urine culture negative, sputum culture growing staph aureus and gram-negative rods Allergy: Sulfa Antimicrobials: Vancomycin, Rocephin Indwelling: Trach PEG peripheral IV Physical examination: This is an unfortunate chronically ill-appearing young woman who is awake in no distress. Head atraumatic normocephalic sclera nonicteric. Neck is supple, tracheostomy present. Chest rise symmetrical breath sounds diminished bases. Heart: S1-S2. Abdomen soft bowel sounds present. Extremities without cyanosis Assessment: 1. Bacteremia, consistent with contaminant 2. Left lower lobe pneumonia 3. Chronic respiratory failure and dysphagia 4. History of craniotomy with encephalopathy 5. Diabetes and hypertension Plan: Patient remains stable, white blood cell count improved, we will continue her on current antibiotics and await for final sputum cultures, follow repeat blood cultures Consultation Date/Type/Reason Admit Date/Time Oct 04, 2018 at 00:30 Initial Consult Date 10/06/18 Type of Consult id Date/Time of Note DATE: 10/07/18 TIME: 14:40 Exam/Review of Systems Exam Vitals Vital Signs Date Temp Pulse Resp B/P (MAP) Pulse Ox O2 O2 Flow FiO2 Time Delivery Rate 10/07/18 84 12:07 10/07/18 97.5 18 138/71 99 11:31 (93) 10/07/18 5.0 28 08:39 10/07/18 Aerosol 08:39 T Tube Intake and Output 10/06/18 10/06/18 10/07/18 1515:00 23:00 07:00 IntakeIntake Total 50 ml 1680 ml BalanceBalance 50 ml 1680 ml Results Result Diagram: 10/07/18 0513 10/07/18 0513 Results 24hrs Laboratory Tests Test 10/06/18 17:38 10/06/18 21:12 10/07/18 00:39 10/07/18 01:17 Bedside Glucose 224 H 126 54 L 137 Test 10/07/18 01:39 10/07/18 02:10 10/07/18 05:13 10/07/18 06:40 Bedside Glucose 97 169 199 White Blood Count 5.6 Red Blood Count 3.63 L Hemoglobin 10.9 L Hematocrit 32.6 L Mean Corpuscular 89.8 Volume Mean Corpuscular 30.0 Hemoglobin Mean Corpuscular 33.4 Hemoglobin Concent Red Cell 12.7 Distribution Width Platelet Count 258 Mean Platelet Volume 11.5 H Immature 0.900 H Granulocytes % Neutrophils % 55.5 Lymphocytes % 24.2 Monocytes % 12.2 H Eosinophils % 6.5 Basophils % 0.7 Nucleated Red Blood 0.0 Cells % Immature 0.050 H Granulocytes # Neutrophils # 3.1 Lymphocytes # 1.4 Monocytes # 0.7 Eosinophils # 0.4 Basophils # 0.0 Nucleated Red Blood 0.0 Cells # Sodium Level 139 Potassium Level 3.6 Chloride Level 106 Carbon Dioxide Level 27 Anion Gap 6 Blood Urea Nitrogen 5 L Creatinine 0.39 L Est Glomerular > 60 Filtrat Rate mL/min Glucose Level 169 Calcium Level 8.7 Phosphorus Level 3.4 Magnesium Level 1.8 Test 10/07/18 11:27 10/07/18 12:11 Bedside Glucose 146 Vancomycin Level 19.0 Trough Medications Medication Current Medications IV Flush (NS 3 ml) 3 ml PER PROTOCOL IV ; Start 10/04/18 at 10:00 Ondansetron HCl (Zofran Tab) 4 mg Q6H PRN PO NAUSEA/VOMITING; Start 10/04/18 at 10:00 Acetaminophen (Tylenol Supp) 650 mg Q6H PRN [place] .PAIN 1-3 OR TEMP; Start 10/04/18 at 10:00 Docusate Sodium (Colace) 100 mg Q12H PRN PO .CONSTIPATION; Start 10/04/18 at 10:00 Magnesium Hydroxide (Milk Of Mag) 30 ml DAILY PRN PO .CONSTIPATION; Start 10/04/18 at 10:00 Bisacodyl (Dulcolax) 5 mg DAILY PRN PO .CONSTIPATION; Start 10/04/18 at 10:00 Bisacodyl (Dulcolax Supp) 10 mg DAILY PRN [place] .CONSTIPATION; Start 10/04/18 at 10:00 Ceftriaxone Sodium 50 ml @ 100 mls/hr Q24H IVPB Last administered on 10/07/18at 10:32; Admin Dose 100 MLS/HR; Start 10/04/18 at 11:00 Enoxaparin Sodium (Lovenox) 40 mg DAILY SC Last administered on 10/07/18 11:04 ; Admin Dose 40 MG; Start 10/04/18 at 11:30 Albuterol/ Ipratropium (Duoneb) 3 ml Q6H RESP THERAPY HHN Last administered on 10/07/18 08:39; Admin Dose 3 ML; Start 10/04/18 at 14:00 Acetaminophen (Tylenol Liquid (Ped)) 160 mg Q4H PRN GTB MILD PAIN(1-3) OR TEMP>38C Last administered on 10/05/18 17:39; Admin Dose 160 MG; Start 10/04/18 at 14:30 Aspirin (Aspirin) 81 mg DAILY GTB Last administered on 10/07/18 10:31; Admin Dose 81 MG; Start 10/04/18 at 15:00 Baclofen (Lioresal) 10 mg Q6H PRN GTB MUSCLE SPASMS Last administered on 10/05/18 21:51; Admin Dose 10 MG; Start 10/04/18 at 15:00 Clonidine (Catapres) 0.2 mg Q4H PRN GTB FOR SBP ABOVE 170; Start 10/04/18 at 15:00 Famotidine (Pepcid) 20 mg BID GTB Last administered on 10/07/18 10:31; Admin Dose 20 MG; Start 10/04/18 at 21:00 Guaifenesin (Robitussin Liquid Cup) 300 mg QID PRN PO CONGESTION/COUGH; Start 10/05/18 at 11:00 Loperamide HCl (Imodium Cap) 2 mg TID PRN GTB DIARRHEA; Start 10/04/18 at 15:00 Lorazepam (Ativan) 0.25 mg Q8H PRN GTB ANXIETY; Start 10/04/18 at 15:00 Metoprolol Tartrate (Lopressor) 50 mg BID GTB Last administered on 10/07/18 10:31; Admin Dose 50 MG; Start 10/04/18 at 21:00 Ascorbic Acid (Vitamin C) 1,000 mg DAILY GTB Last administered on 10/07/18 10:30; Admin Dose 1,000 MG; Start 10/04/18 at 15:00 Ondansetron HCl (Zofran Inj) 4 mg Q6H PRN IV NAUSEA AND/OR VOMITING Last administered on 10/05/18at 07:32; Admin Dose 4 MG; Start 10/05/18 at 07:00 Diagnostic Test (Pha) (Accu-Chek) 1 ea 02 XX Last administered on 10/07/18at 02:00; Admin Dose 1 EA; Start 10/06/18 at 02:00 Miscellaneous Information 1 ea NOTE XX ; Start 10/05/18 at 07:00 Glucose (Glutose) 15 gm Q15M PRN PO DECREASED GLUCOSE; Start 10/05/18 at 07:00 Glucose (Glutose) 22.5 gm Q15M PRN PO DECREASED GLUCOSE; Start 10/05/18 at 07:00 Dextrose (D50w Syringe) 25 ml Q15M PRN IV DECREASED GLUCOSE Last administered on 10/07/18at 00:56; Admin Dose 25 ML; Start 10/05/18 at 07:00 Dextrose (D50w Syringe) 50 ml Q15M PRN IV DECREASED GLUCOSE; Start 10/05/18 at 07:00 Glucagon (Glucagen) 1 mg Q15M PRN IM DECREASED GLUCOSE; Start 10/05/18 at 07:00 Glucose (Glutose) 15 gm Q15M PRN BUCCAL DECREASED GLUCOSE; Start 10/05/18 at 07:00 Acetaminophen/ Hydrocodone Bitart ([place] (5/325)) 1 tab Q6H PRN GTB MODERATE PAIN LEVEL 4-6 Last administered on 10/05/18at 14:49; Admin Dose 1 TAB; Start 10/05/18 at 11:00 Insulin Glargine (Lantus) 18 units QHS SC Last administered on 10/06/18at 21:31; Admin Dose 18 UNITS; Start 10/05/18 at 21:00 Vancomycin HCl (Vanco Iv Per Pharmacy) VANCOMYCIN PER PHARMACY PER PROTOCOL XX ; Start 10/06/18 at 12:00 Insulin Aspart (Novolog Insulin Pen) (Adult SC Insulin - Moder... Q6 SC Last administered on 10/07/18at 11:38; Admin Dose 1 UNIT; Start 10/06/18 at 18:00 Vancomycin/Sodium Chloride 250 ml @ 125 mls/hr Q8H IVPB ; Start 10/07/18 at 16:00 BRENNEN CAO NP Oct 07, 2018 14:40
[2018-10-07] MEDS: VANCOMYCIN 750 MG (PMX) 250 ML IVPB SCH (18:04)
[2018-10-07] MEDS ORDERED: INSULIN ASPART [NOVOLOG] 3 ML PEN SC ONE (19:00)
[2018-10-07] MEDS ORDERED: ACCU-CHEK XX ONE (19:00)
[2018-10-07] MEDS: INSULIN GLARGINE [LANTus] (100 UNITS/ML) SYG SC SCH (21:33)
[2018-10-08] VITALS (11 sets, daily range): BP systolic 110–148; BP diastolic 56–94; PULSE 88–125; RESP 18–21
[2018-10-08] MEDS: VANCOMYCIN 750 MG (PMX) 250 ML IVPB SCH ×3 (00:08→16:48)
[2018-10-08] MEDS: Insulin NOVOLOG SS MODERATE Algorithm(NPO/TPN/ENTERAL FEEDS) SC SCH ×5 (00:12→22:45)
[2018-10-08] MEDS: HYDROCODONE/APAP (5/325) TAB GTB PRN (00:38)
[2018-10-08] MEDS: ALBUTEROL/IPRATROPIUM (NEB) 3 ML AMP HHN SCH ×4 (01:16→19:56)
[2018-10-08] MEDS: ACCU-CHEK XX SCH (02:00)
[2018-10-08] MEDS: ASCORBIC ACID 500 MG TAB GTB SCH (08:30)
[2018-10-08] MEDS: FAMOTIDINE 20 MG TAB GTB SCH ×2 (08:31→20:53)
[2018-10-08] MEDS: ASPIRIN 81 MG TAB GTB SCH (08:31)
[2018-10-08] MEDS: METOPROLOL 50 MG TAB GTB SCH ×2 (08:31→20:53)
[2018-10-08] MEDS: ENOXAPARIN 40 MG/0.4 ML SYG SC SCH (08:41)
--- NOTE | 2018-10-08 10:31 | CONS ---
Consultation Date/Type/Reason Admit Date/Time Oct 04, 2018 at 00:30 Initial Consult Date 10/06/18 Type of Consult Pulmonary Patient is a 23-year-old woman who was sent over to the hospital from retirement with low-grade fever. Upon evaluation a chest x-ray was done which is showing possible left lower lobe pneumonia. Patient started on Rocephin with improvement in leukocytosis. Because of chronic encephalopathy patient is unable to give any history by herself whatsoever. Patient however did not appear to be in any distress whatsoever. Past medical history; 1. 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 2. History of tracheostomy, maintained on T-piece. 3. History of muscle spasms. 4. Chronic dysphagia, status post G-tube placement in the past. Medications; reviewed. Allergies; sulfa drugs. Family history, social history, occupational history is noncontributory. Review of systems; unable to be obtained. General exam; young woman, awake, smiles on eye contact but is noncommunicative. Date/Time of Note DATE: 10/08/18 TIME: 10:30 24 HR Interval Summary Free Text/Dictation Patient's condition is stable. Has remained hemodynamically stable. General exam; young woman, on T-piece via tracheostomy, awake but noncommunicative. Currently no distress. HEENT exam; supple neck, no JVD. No lymphadenopathy. Midline trachea. No thyromegaly. Patient has fair dentition. Chest exam; clear to auscultation. S1-S2 audible, no murmurs. Regular rhythm. Abdomen exam; soft, scaphoid. No organomegaly. G-tube in place. Bowel sounds are audible. Extremity exam; no peripheral edema. Patient does have flexion contractures. 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 Does not follow any commands. Assessment recommendations; 1. Patient with history of chronic encephalopathy maintained on T-piece via tracheostomy admitted for left lower lobe pneumonia with significant interval clinical and radiological improvement. 2. History of muscle spasms, diabetes and hypertension. Continue current supportive care. Consider discharge. Continue Rocephin for additional 24 hours. Exam/Review of Systems Exam Vitals Vital Signs Date Temp Pulse Resp B/P (MAP) Pulse Ox O2 O2 Flow FiO2 Time Delivery Rate 10/08/18 113 20 98 Aerosol 5.0 28 08:33 T Tube 10/08/18 98.1 124/76 07:22 (92) Intake and Output 10/07/18 10/07/18 10/08/18 1515:00 23:00 07:00 IntakeIntake Total 900 ml 1040 ml 1000 ml BalanceBalance 900 ml 1040 ml 1000 ml Results Result Diagram: 10/07/18 0513 10/07/18 0513 Results 24hrs Laboratory Tests Test 10/07/18 11:27 10/07/18 12:11 10/07/18 17:50 10/07/18 19:56 Bedside Glucose 146 302 H 130 Vancomycin Level 19.0 Trough Test 10/07/18 21:13 10/08/18 00:01 10/08/18 05:46 10/08/18 05:52 Bedside Glucose 123 154 326 H 324 H Medications Medication Current Medications IV Flush (NS 3 ml) 3 ml PER PROTOCOL IV ; Start 10/04/18 at 10:00 Ondansetron HCl (Zofran Tab) 4 mg Q6H PRN PO NAUSEA/VOMITING; Start 10/04/18 at 10:00 Acetaminophen (Tylenol Supp) 650 mg Q6H PRN [place] .PAIN 1-3 OR TEMP; Start 10/04/18 at 10:00 Docusate Sodium (Colace) 100 mg Q12H PRN PO .CONSTIPATION; Start 10/04/18 at 10:00 Magnesium Hydroxide (Milk Of Mag) 30 ml DAILY PRN PO .CONSTIPATION; Start 10/04/18 at 10:00 Bisacodyl (Dulcolax) 5 mg DAILY PRN PO .CONSTIPATION; Start 10/04/18 at 10:00 Bisacodyl (Dulcolax Supp) 10 mg DAILY PRN [place] .CONSTIPATION; Start 10/04/18 at 10:00 Ceftriaxone Sodium 50 ml @ 100 mls/hr Q24H IVPB Last administered on 10/07/18at 10:32; Admin Dose 100 MLS/HR; Start 10/04/18 at 11:00 Enoxaparin Sodium (Lovenox) 40 mg DAILY SC Last administered on 10/08/18at 08:41; Admin Dose 40 MG; Start 10/04/18 at 11:30 Albuterol/ Ipratropium (Duoneb) 3 ml Q6H RESP THERAPY HHN Last administered on 10/08/18 08:34; Admin Dose 3 ML; Start 10/04/18 at 14:00 Acetaminophen (Tylenol Liquid (Ped)) 160 mg Q4H PRN GTB MILD PAIN(1-3) OR TEMP>38C Last administered on 10/05/18 17:39; Admin Dose 160 MG; Start 10/04/18 at 14:30 Aspirin (Aspirin) 81 mg DAILY GTB Last administered on 10/08/18 08:31; Admin Dose 81 MG; Start 10/04/18 at 15:00 Baclofen (Lioresal) 10 mg Q6H PRN GTB MUSCLE SPASMS Last administered on 10/05/18 21:51; Admin Dose 10 MG; Start 10/04/18 at 15:00 Clonidine (Catapres) 0.2 mg Q4H PRN GTB FOR SBP ABOVE 170; Start 10/04/18 at 15:00 Famotidine (Pepcid) 20 mg BID GTB Last administered on 10/08/18 08:31; Admin Dose 20 MG; Start 10/04/18 at 21:00 Guaifenesin (Robitussin Liquid Cup) 300 mg QID PRN PO CONGESTION/COUGH; Start 10/05/18 at 11:00 Loperamide HCl (Imodium Cap) 2 mg TID PRN GTB DIARRHEA; Start 10/04/18 at 15:00 Lorazepam (Ativan) 0.25 mg Q8H PRN GTB ANXIETY; Start 10/04/18 at 15:00 Metoprolol Tartrate (Lopressor) 50 mg BID GTB Last administered on 10/08/18 08:31; Admin Dose 50 MG; Start 10/04/18 at 21:00 Ascorbic Acid (Vitamin C) 1,000 mg DAILY GTB Last administered on 10/08/18 08:30; Admin Dose 1,000 MG; Start 10/04/18 at 15:00 Ondansetron HCl (Zofran Inj) 4 mg Q6H PRN IV NAUSEA AND/OR VOMITING Last ad ministered on 10/05/18 07:32; Admin Dose 4 MG; Start 10/05/18 at 07:00 Diagnostic Test (Pha) (Accu-Chek) 1 ea 02 XX Last administered on 6/11/19at 02:00; Admin Dose 1 EA; Start 10/06/18 at 02:00 Miscellaneous Information 1 ea NOTE XX ; Start 10/05/18 at 07:00 Glucose (Glutose) 15 gm Q15M PRN PO DECREASED GLUCOSE; Start 10/05/18 at 07:00 Glucose (Glutose) 22.5 gm Q15M PRN PO DECREASED GLUCOSE; Start 10/05/18 at 07:00 Dextrose (D50w Syringe) 25 ml Q15M PRN IV DECREASED GLUCOSE Last administered on 10/07/18at 00:56; Admin Dose 25 ML; Start 10/05/18 at 07:00 Dextrose (D50w Syringe) 50 ml Q15M PRN IV DECREASED GLUCOSE; Start 10/05/18 at 07:00 Glucagon (Glucagen) 1 mg Q15M PRN IM DECREASED GLUCOSE; Start 10/05/18 at 07:00 Glucose (Glutose) 15 gm Q15M PRN BUCCAL DECREASED GLUCOSE; Start 10/05/18 at 07:00 Acetaminophen/ Hydrocodone Bitart ([place] (5/325)) 1 tab Q6H PRN GTB MODERATE PAIN LEVEL 4-6 Last administered on 10/08/18at 00:38; Admin Dose 1 TAB; Start 10/05/18 at 11:00 Insulin Glargine (Lantus) 18 units QHS SC Last administered on 10/07/18at 21:33; Admin Dose 18 UNITS; Start 10/05/18 at 21:00 Vancomycin HCl (Vanco Iv Per Pharmacy) VANCOMYCIN PER PHARMACY PER PROTOCOL XX ; Start 10/06/18 at 12:00 Insulin Aspart (Novolog Insulin Pen) (Adult SC Insulin - Moder... Q6 SC Last administered on 10/08/18at 06:00; Admin Dose 10 UNIT; Start 10/06/18 at 18:00 Vancomycin/Sodium Chloride 250 ml @ 125 mls/hr Q8H IVPB Last administered on 10/08/18at 08:29; Admin Dose 125 MLS/HR; Start 10/07/18 at 16:00 SUZAN ROSS 12, 2019 10:31
--- NOTE | 2018-10-08 12:48 | PN ---
Date/Time of Note Date/Time of Note DATE: 10/08/18 TIME: 12:48 Assessment/Plan VTE Prophylaxis Risk score (from Ns)>0 risk: 5 SCD applied (from Ns): Yes Pharmacological prophylaxis: NA/contraindicated Pharm contraindication: low risk/ambulating Lines/Catheters IV Catheter Type (from Nrs): Peripheral IV Urinary Cath still in place: No Assessment/Plan Assessment/Plan 1. SIRS. Lactic acid is normal 2. Left side pneumonia. Xray chest is positive for Patchy left lower lobe pneumonia. Now with the gram-positive staph bacteremia, + TRACH culture + ps eudomonas ans MRSA 3. VDRF with tracheostomy 4. s/p craniotomy on the left. Incomplete data. 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 Brain herniates beyond the margins of the craniectomy. Old posterior right basil ganglia lacunar infarct extending cephalad into the right parietal nichols radiata and centrum semiovale. Laminar necrosis/dystrophic calcification lateral left frontal lobe. Acute hemorrhage considered less likely. Paranasal sinus mucosal disease. Right mastoid air cell disease. 5. Dysphagia with G tube 6. DM type I, uncontrolled 7. Opiate dependence, per SNF record pt was on Dilaudid PO, [place], Tramadol 8. Hypertension Assessment/Plan -cw vanco/Cefepime for 7 more days per ID - Will get midline today - Repeat bld cx -DVT proph. Lovenox -increase insulin [place] 18>24 units -Hold hydralazine due to borderline hypotension -GI proph. Protonix -nebs around the clock -c/w tube feeding/gentle dc Planning Result Diagram: 10/07/18 0513 10/07/1813 Results 24hrs Laboratory Tests Test 10/07/18 17:50 10/07/18 19:56 10/07/18 21:13 10/08/18 00:01 Bedside Glucose 302 H 130 123 154 Test 10/08/18 05:46 10/08/18 05:52 10/08/18 12:21 Bedside Glucose 326 H 324 H 346 H Subjective 24 Hr Interval Summary Free Text/Dictation cx +Pseudomonas and mrsa on vanco/cefepime sugars high getting midline today Exam/Review of Systems Exam Vitals Vital Signs Date Temp Pulse Resp B/P (MAP) Pulse Ox O2 O2 Flow FiO2 Time Delivery Rate 10/08/18 99.4 97 19 133/90 99 Trach 11:00 (104) Collar 10/08/18 5.0 28 08:33 Intake and Output 10/07/18 10/07/18 10/08/18 1515:00 23:00 07:00 IntakeIntake Total 900 ml 1040 ml 1000 ml BalanceBalance 900 ml 1040 ml 1000 ml Exam Exam H EENT exam; suppl3: Tracheostomy in place. Attached to T-piece. Chest exam; clear to auscultation. S1-S2 audible, no murmurs. Regular rhythm. Abdomen exam; soft, G-tube in place. No organomegaly. Bowel sounds audible. Extremity exam; no peripheral edema. 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 Results Results 24hrs Laboratory Tests Test 10/07/18 17:50 10/07/18 19:56 10/07/18 21:13 10/08/18 00:01 Bedside Glucose 302 H 130 123 154 Test 10/08/18 05:46 10/08/18 05:52 10/08/18 12:21 Bedside Glucose 326 H 324 H 346 H Medications Medication Current Medications IV Flush (NS 3 ml) 3 ml PER PROTOCOL IV ; Start 10/04/18 at 10:00 Ondansetron HCl (Zofran Tab) 4 mg Q6H PRN PO NAUSEA/VOMITING; Start 10/04/18 at 10:00 Acetaminophen (Tylenol Supp) 650 mg Q6H PRN [place] .PAIN 1-3 OR TEMP; Start 10/04/18 at 10:00 Docusate Sodium (Colace) 100 mg Q12H PRN PO .CONSTIPATION; Start 10/04/18 at 10:00 Magnesium Hydroxide (Milk Of Mag) 30 ml DAILY PRN PO .CONSTIPATION; Start 10/04/18 at 10:00 Bisacodyl (Dulcolax) 5 mg DAILY PRN PO .CONSTIPATION; Start 10/04/18 at 10:00 Bisacodyl (Dulcolax Supp) 10 mg DAILY PRN [place] .CONSTIPATION; Start 10/04/18 at 10:00 Enoxaparin Sodium (Lovenox) 40 mg DAILY SC Last administered on 10/08/18at 08:41; Admin Dose 40 MG; Start 10/04/18 at 11:30 Albuterol/ Ipratropium (Duoneb) 3 ml Q6H RESP THERAPY HHN Last administered on 10/08/18 08:34; Admin Dose 3 ML; Start 10/04/18 at 14:00 Acetaminophen (Tylenol Liquid (Ped)) 160 mg Q4H PRN GTB MILD PAIN(1-3) OR TEMP>38C Last administered on 10/05/18 17:39; Admin Dose 160 MG; Start 10/04/18 at 14:30 Aspirin (Aspirin) 81 mg DAILY GTB Last administered on 10/08/18 08:31; Admin Dose 81 MG; Start 10/04/18 at 15:00 Baclofen (Lioresal) 10 mg Q6H PRN GTB MUSCLE SPASMS Last administered on 10/05/18 21:51; Admin Dose 10 MG; Start 10/04/18 at 15:00 Clonidine (Catapres) 0.2 mg Q4H PRN GTB FOR SBP ABOVE 170; Start 10/04/18 at 15:00 Famotidine (Pepcid) 20 mg BID GTB Last administered on 10/08/18 08:31; Admin Dose 20 MG; Start 10/04/18 at 21:00 Guaifenesin (Robitussin Liquid Cup) 300 mg QID PRN PO CONGESTION/COUGH; Start 10/05/18 at 11:00 Loperamide HCl (Imodium Cap) 2 mg TID PRN GTB DIARRHEA; Start 10/04/18 at 15:00 Lorazepam (Ativan) 0.25 mg Q8H PRN GTB ANXIETY; Start 10/04/18 at 15:00 Metoprolol Tartrate (Lopressor) 50 mg BID GTB Last administered on 10/08/18 08:31; Admin Dose 50 MG; Start 10/04/18 at 21:00 Ascorbic Acid (Vitamin C) 1,000 mg DAILY GTB Last administered on 10/08/18 08:30; Admin Dose 1,000 MG; Start 10/04/18 at 15:00 Ondansetron HCl (Zofran Inj) 4 mg Q6H PRN IV NAUSEA AND/OR VOMITING Last administered on 10/05/18 07:32; Admin Dose 4 MG; Start 10/05/18 at 07:00 Diagnostic Test (Pha) (Accu-Chek) 1 ea 02 XX Last administered on 10/07/18at 02:00; Admin Dose 1 EA; Start 10/06/18 at 02:00 Miscellaneous Information 1 ea NOTE XX ; Start 10/05/18 at 07:00 Glucose (Glutose) 15 gm Q15M PRN PO DECREASED GLUCOSE; Start 10/05/18 at 07:00 Glucose (Glutose) 22.5 gm Q15M PRN PO DECREASED GLUCOSE; Start 10/05/18 at 07:00 Dextrose (D50w Syringe) 25 ml Q15M PRN IV DECREASED GLUCOSE Last administered on 10/07/18at 00:56; Admin Dose 25 ML; Start 10/05/18 at 07:00 Dextrose (D50w Syringe) 50 ml Q15M PRN IV DECREASED GLUCOSE; Start 10/05/18 at 07:00 Glucagon (Glucagen) 1 mg Q15M PRN IM DECREASED GLUCOSE; Start 10/05/18 at 07:00 Glucose (Glutose) 15 gm Q15M PRN BUCCAL DECREASED GLUCOSE; Start 10/05/18 at 07:00 Acetaminophen/ Hydrocodone Bitart ([place] (5/325)) 1 tab Q6H PRN GTB MODERATE PAIN LEVEL 4-6 Last administered on 10/08/18at 00:38; Admin Dose 1 TAB; Start 10/05/18 at 11:00 Insulin Glargine (Lantus) 18 units QHS SC Last administered on 10/07/18at 21:33; Admin Dose 18 UNITS; Start 10/05/18 at 21:00 Vancomycin HCl (Vanco Iv Per Pharmacy) VANCOMYCIN PER PHARMACY PER PROTOCOL XX ; Start 10/06/18 at 12:00 Insulin Aspart (Novolog Insulin Pen) (Adult SC Insulin - Moder... Q6 SC Last administered on 10/08/18at 12:25; Admin Dose 10 UNIT; Start 10/06/18 at 18:00 Vancomycin/Sodium Chloride 250 ml @ 125 mls/hr Q8H IVPB Last administered on 10/08/18at 08:29; Admin Dose 125 MLS/HR; Start 10/07/18 at 16:00 Ceftazidime 50 ml @ 100 mls/hr Q8 IVPB ; Start 10/08/18 at 14:00 STEPHANY MCNAIR MD Oct 08, 2018 12:48
--- NOTE | 2018-10-08 12:49 | PDOCDIS ---
Discharge Instructions DIAGNOSIS Discharge Diagnosis Pneumonia MRSA and pseudomonas CONDITION [id number] Patient Condition: [id number] Fair HOME CARE INSTRUCTIONS: [id number] Special Diet: [id number] npo, G tube feeding FOLLOW UP/APPOINTMENTS Follow-up Plan fu PCP in 1-2 weeks cw iv vancomycin and cefepime for 7 days STEPHANY MCNAIR MD Oct 08, 2018 12:49
[2018-10-08] MEDS ORDERED: INSULIN ASPART [NOVOLOG] 3 ML PEN SC ONE (13:00)
[2018-10-08] MEDS ORDERED: ACCU-CHEK XX ONE (13:00)
[2018-10-08] MEDS ORDERED: CEFTAZIDIME 1GM/50 ML (PMX) 50 ML IVPB SCH (14:00)
--- NOTE | 2018-10-08 14:17 | CONS ---
Assessment/Plan Assessment/Plan Hospital Course (Demo Recall) No events, looks comfortable, no fevers Microbiology: Blood culture on admission grew coag negative staph species, urine culture negative, sputum culture growing PSA/MRSA Allergy: Sulfa Antimicrobials: Vancomycin, Rocephin Indwelling: Trach PEG peripheral IV Physical examination: This is an unfortunate chronically ill-appearing young woman who is awake in no distress. Head atraumatic normocephalic sclera nonicteric. Neck is supple, tracheostomy present. Chest rise symmetrical breat h sounds diminished bases. Heart: S1-S2. Abdomen soft bowel sounds present. Extremities without cyanosis Assessment: 1. Bacteremia, consistent with contaminant 2. Left lower lobe pneumonia 3. Chronic respiratory failure and dysphagia 4. History of craniotomy with encephalopathy 5. Diabetes and hypertension Plan: Patient remains stable, repeat blood cultures negative, change Rocephin to cefepime, continue vancomycin. Okay discharge back to the facility with current antibiotics for 7 more days Consultation Date/Type/Reason Admit Date/Time Oct 04, 2018 at 00:30 Initial Consult Date 10/06/18 Type of Consult id Date/Time of Note DATE: 10/08/18 TIME: 14:16 Exam/Review of Systems Exam Vitals Vital Signs Date Temp Pulse Resp B/P (MAP) Pulse Ox O2 O2 Flow FiO2 Time Delivery Rate 10/08/18 93 18 96 Aerosol 5.0 28 13:32 T Tube 10/08/18 99.4 133/90 11:00 (104) Intake and Output 10/07/18 10/07/18 10/08/18 1515:00 23:00 07:00 IntakeIntake Total 900 ml 1040 ml 1000 ml BalanceBalance 900 ml 1040 ml 1000 ml Results Result Diagram: 10/07/18 0513 10/07/18 0513 Results 24hrs Laboratory Tests Test 10/07/18 17:50 10/07/18 19:56 10/07/18 21:13 10/08/18 00:01 Bedside Glucose 302 H 130 123 154 Test 10/08/18 05:46 10/08/18 05:52 10/08/18 12:21 10/08/18 13:16 Bedside Glucose 326 H 324 H 346 H 241 H Medications Medication Current Medications IV Flush (NS 3 ml) 3 ml PER PROTOCOL IV ; Start 10/04/18 at 10:00 Ondansetron HCl (Zofran Tab) 4 mg Q6H PRN PO NAUSEA/VOMITING; Start 10/04/18 at 10:00 Acetaminophen (Tylenol Supp) 650 mg Q6H PRN SD .PAIN 1-3 OR TEMP; Start 10/04/18 at 10:00 Docusate Sodium (Colace) 100 mg Q12H PRN PO .CONSTIPATION; Start 10/04/18 at 10:00 Magnesium Hydroxide (Milk Of Mag) 30 ml DAILY PRN PO .CONSTIPATION; Start 10/04/18 at 10:00 Bisacodyl (Dulcolax) 5 mg DAILY PRN PO .CONSTIPATION; Start 10/04/18 at 10:00 Bisacodyl (Dulcolax Supp) 10 mg DAILY PRN SD .CONSTIPATION; Start 10/04/18 at 10:00 Enoxaparin Sodium (Lovenox) 40 mg DAILY SC Last administered on 10/08/18at 08:41; Admin Dose 40 MG; Start 10/04/18 at 11:30 Albuterol/ Ipratropium (Duoneb) 3 ml Q6H RESP THERAPY HHN Last administered on 10/08/18at 13:32; Admin Dose 3 ML; Start 10/04/18 at 14:00 Acetaminophen (Tylenol Liquid (Ped)) 160 mg Q4H PRN GTB MILD PAIN(1-3) OR TEMP>38C Last administered on 10/05/18at 17:39; Admin Dose 160 MG; Start 10/04/18 at 14:30 Aspirin (Aspirin) 81 mg DAILY GTB Last administered on 10/08/18 08:31; Admin Dose 81 MG; Start 10/04/18 at 15:00 Baclofen (Lioresal) 10 mg Q6H PRN GTB MUSCLE SPASMS Last administered on 10/05/18at 21:51; Admin Dose 10 MG; Start 10/04/18 at 15:00 Clonidine (Catapres) 0.2 mg Q4H PRN GTB FOR SBP ABOVE 170; Start 10/04/18 at 15:00 Famotidine (Pepcid) 20 mg BID GTB Last administered on 10/08/18 08:31; Admin D ose 20 MG; Start 10/04/18 at 21:00 Guaifenesin (Robitussin Liquid Cup) 300 mg QID PRN PO CONGESTION/COUGH; Start 10/05/18 at 11:00 Loperamide HCl (Imodium Cap) 2 mg TID PRN GTB DIARRHEA; Start 10/04/18 at 15:00 Lorazepam (Ativan) 0.25 mg Q8H PRN GTB ANXIETY; Start 10/04/18 at 15:00 Metoprolol Tartrate (Lopressor) 50 mg BID GTB Last administered on 10/08/18at 08:31; Admin Dose 50 MG; Start 10/04/18 at 21:00 Ascorbic Acid (Vitamin C) 1,000 mg DAILY GTB Last administered on 10/08/18at 08:30; Admin Dose 1,000 MG; Start 10/04/18 at 15:00 Ondansetron HCl (Zofran Inj) 4 mg Q6H PRN IV NAUSEA AND/OR VOMITING Last administered on 10/05/18at 07:32; Admin Dose 4 MG; Start 10/05/18 at 07:00 Diagnostic Test (Pha) (Accu-Chek) 1 ea 02 XX Last administered on 10/07/18at 02:00; Admin Dose 1 EA; Start 10/06/18 at 02:00 Miscellaneous Information 1 ea NOTE XX ; Start 10/05/18 at 07:00 Glucose (Glutose) 15 gm Q15M PRN PO DECREASED GLUCOSE; Start 10/05/18 at 07:00 Glucose (Glutose) 22.5 gm Q15M PRN PO DECREASED GLUCOSE; Start 10/05/18 at 07:00 Dextrose (D50w Syringe) 25 ml Q15M PRN IV DECREASED GLUCOSE Last administered on 10/07/18at 00:56; Admin Dose 25 ML; Start 10/05/18 at 07:00 Dextrose (D50w Syringe) 50 ml Q15M PRN IV DECREASED GLUCOSE; Start 10/05/18 at 07:00 Glucagon (Glucagen) 1 mg Q15M PRN IM DECREASED GLUCOSE; Start 10/05/18 at 07:00 Glucose (Glutose) 15 gm Q15M PRN BUCCAL DECREASED GLUCOSE; Start 10/05/18 at 07:00 Acetaminophen/ Hydrocodone Bitart ([place] (5/325)) 1 tab Q6H PRN GTB MODERATE PAIN LEVEL 4-6 Last administered on 10/08/18at 00:38; Admin Dose 1 TAB; Start 10/05/18 at 11:00 Vancomycin HCl (Vanco Iv Per Pharmacy) VANCOMYCIN PER PHARMACY PER PROTOCOL XX ; Start 10/06/18 at 12:00 Insulin Aspart (Novolog Insulin Pen) (Adult SC Insulin - Moder... Q6 SC Last administered on 10/08/18at 12:25; Admin Dose 10 UNIT; Start 10/06/18 at 18:00 Vancomycin/Sodium Chloride 250 ml @ 125 mls/hr Q8H IVPB Last administered on 10/08/18at 08:29; Admin Dose 125 MLS/HR; Start 10/07/18 at 16:00 Cefepime HCl 50 ml @ 100 mls/hr Q12 IVPB ; Start 10/08/18 at 13:00 Insulin Glargine (Lantus) 24 units QHS SC ; Start 10/08/18 at 21:00 BRENNEN CAO NP Oct 08, 2018 14:17
[2018-10-08] MEDS: CEFEPIME 1GM/50 ML (PMX) 50 ML IVPB SCH ×2 (16:20→20:52)
[2018-10-08] MEDS: DILTIAZEM 25 MG INJ IV PRN (18:14)
[2018-10-08] MEDS ORDERED: INSULIN GLARGINE [LANTus] (100 UNITS/ML) SYG SC SCH (21:00)
[2018-10-09] VITALS (9 sets, daily range): BP systolic 117–139; BP diastolic 63–86; PULSE 83–133; RESP 18–20
[2018-10-09] MEDS: VANCOMYCIN 750 MG (PMX) 250 ML IVPB SCH ×4 (00:06→23:23)
[2018-10-09] MEDS: DILTIAZEM 25 MG INJ IV PRN (00:31)
[2018-10-09] MEDS: ALBUTEROL/IPRATROPIUM (NEB) 3 ML AMP HHN SCH ×4 (01:28→20:34)
[2018-10-09] MEDS: ACCU-CHEK XX SCH (02:00)
[2018-10-09] MEDS: Insulin NOVOLOG SS MODERATE Algorithm(NPO/TPN/ENTERAL FEEDS) SC SCH ×3 (05:53→16:57)
[2018-10-09] MEDS: BACLOFEN 10 MG TAB GTB PRN (09:13)
[2018-10-09] MEDS: ASCORBIC ACID 500 MG TAB GTB SCH (09:13)
[2018-10-09] MEDS: ASPIRIN 81 MG TAB GTB SCH (09:13)
[2018-10-09] MEDS: FAMOTIDINE 20 MG TAB GTB SCH ×2 (09:13→21:33)
[2018-10-09] MEDS: HYDROCODONE/APAP (5/325) TAB GTB PRN ×2 (09:13→23:23)
[2018-10-09] MEDS: CEFEPIME 1GM/50 ML (PMX) 50 ML IVPB SCH ×2 (09:14→21:36)
[2018-10-09] MEDS: METOPROLOL 50 MG TAB GTB SCH ×2 (09:14→21:36)
[2018-10-09] MEDS: ENOXAPARIN 40 MG/0.4 ML SYG SC SCH (09:48)
[2018-10-09] MEDS ORDERED: SOD CHLORIDE 0.9% 500 ML IV ONE (10:00)
--- NOTE | 2018-10-09 10:35 | CONS ---
Consultation Date/Type/Reason Admit Date/Time Oct 04, 2018 at 00:30 Initial Consult Date 10/06/18 Type of Consult Pulmonary Patient is a 23-year-old woman who was sent over to the hospital from group home with low-grade fever. Upon evaluation a chest x-ray was done which is showing possible left lower lobe pneumonia. Patient started on Rocephin with improvement in leukocytosis. Because of chronic encephalopathy patient is unable to give any history by herself whatsoever. Patient however did not appear to be in any distress whatsoever. Past medical history; 1. 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 2. History of tracheostomy, maintained on T-piece. 3. History of muscle spasms. 4. Chronic dysphagia, status post G-tube placement in the past. Medications; reviewed. Allergies; sulfa drugs. Family history, social history, occupational history is noncontributory. Review of systems; unable to be obtained. General exam; young woman, awake, smiles on eye contact but is noncommunicative. Date/Time of Note DATE: 10/09/18 TIME: 10:33 24 HR Interval Summary Free Text/Dictation Patient's condition is stable. Has remained hemodynamically stable. General exam; young female, awake and smiles on eye contact but does not follow any commands. Currently no distress. On T-piece via tracheostomy. HEENT exam; supple neck, no JVD. No lymphadenopathy. Midline trachea. No thyromegaly. Patient has fair dentition. Tracheostomy in place. Attached to T-piece. Chest exam; clear to auscultation. S1-S2 audible, no murmurs. Regular rhythm. Abdomen exam; soft, scaphoid. No organomegaly. G-tube in place. Bowel sounds are audible. Extremity exam; no peripheral edema. Patient has a flexion contractures. REHAB TRAINER exam; patient is awake but noncommunicative. Assessment and recommendations; 1. Patient with history of chronic encephalopathy and respiratory failure maintained on T-piece admitted with left lower lobe pneumonia with marked interval clinical improvement. 2. Muscle spasms. Consider discharge back to group home off antibiotics. Exam/Review of Systems Exam Vitals Vital Signs Date Temp Pulse Resp B/P (MAP) Pulse Ox O2 O2 Flow FiO2 Time Delivery Rate 10/09/18 T Tube 08:08 10/09/18 110 08:00 10/09/18 99.6 18 120/69 95 07:30 (86) 10/09/18 5.0 28 01:28 Results Result Diagram: 10/09/18 0738 10/09/18 0738 Results 24hrs Laboratory Tests Test 10/08/18 12:21 10/08/18 13:16 10/08/18 17:07 10/08/18 20:46 Bedside Glucose 346 H 241 H 120 405 *H Test 10/08/18 21:41 10/08/18 23:21 10/08/18 23:32 10/09/18 03:12 Glucose Level 423 #*H Vancomycin Level 14.6 Trough Bedside Glucose 265 H 192 Test 10/09/18 05:47 10/09/18 07:38 Bedside Glucose 191 White Blood Count 6.4 Red Blood Count 3.72 L Hemoglobin 11.2 L Hematocrit 33.1 L Mean Corpuscular 89.0 Volume Mean Corpuscular 30.1 Hemoglobin Mean Corpuscular 33.8 Hemoglobin Concent Red Cell 12.9 Distribution Width Platelet Count 313 # Mean Platelet Volume 11.1 H Immature 0.800 H Granulocytes % Neutrophils % 64.0 Lymphocytes % 17.1 Monocytes % 12.0 H Eosinophils % 5.3 Basophils % 0.8 Nucleated Red Blood 0.0 Cells % Immature 0.050 H Granulocytes # Neutrophils # 4.1 Lymphocytes # 1.1 Monocytes # 0.8 Eosinophils # 0.3 Basophils # 0.1 Nucleated Red Blood 0.0 Cells # Sodium Level 142 Potassium Level 3.4 L Chloride Level 108 Carbon Dioxide Level 25 Anion Gap 9 Blood Urea Nitrogen 10 Creatinine 0.40 L Est Glomerular > 60 Filtrat Rate mL/min Glucose Level 92 # Calcium Level 9.3 Medications Medication Current Medications IV Flush (NS 3 ml) 3 ml PER PROTOCOL IV ; Start 10/04/18 at 10:00 Ondansetron HCl (Zofran Tab) 4 mg Q6H PRN PO NAUSEA/VOMITING; Start 10/04/18 at 10:00 Acetaminophen (Tylenol Supp) 650 mg Q6H PRN [place] .PAIN 1-3 OR TEMP; Start 10/04/18 at 10:00 Docusate Sodium (Colace) 100 mg Q12H PRN PO .CONSTIPATION; Start 10/04/18 at 10:00 Magnesium Hydroxide (Milk Of Mag) 30 ml DAILY PRN PO .CONSTIPATION; Start 10/04/18 at 10:00 Bisacodyl (Dulcolax) 5 mg DAILY PRN PO .CONSTIPATION; Start 10/04/18 at 10:00 Bisacodyl (Dulcolax Supp) 10 mg DAILY PRN CA .CONSTIPATION; Start 10/04/18 at 10:00 Enoxaparin Sodium (Lovenox) 40 mg DAILY SC Last administered on 10/09/18 09:48; Admin Dose 40 MG; Start 10/04/18 at 11:30 Albuterol/ Ipratropium (Duoneb) 3 ml Q6H RESP THERAPY HHN Last administered on 10/09/18 01:28; Admin Dose 3 ML; Start 10/04/18 at 14:00 Acetaminophen (Tylenol Liquid (Ped)) 160 mg Q4H PRN GTB MILD PAIN(1-3) OR TEMP>38C Last administered on 10/05/18 17:39; Admin Dose 160 MG; Start 10/04/18 at 14:30 Aspirin (Aspirin) 81 mg DAILY GTB Last administered on 10/09/18 09:13; Admin Dose 81 MG; Start 10/04/18 at 15:00 Baclofen (Lioresal) 10 mg Q6H PRN GTB MUSCLE SPASMS Last administered on 10/09/18 09:13; Admin Dose 10 MG; Start 10/04/18 at 15:00 Clonidine (Catapres) 0.2 mg Q4H PRN GTB FOR SBP ABOVE 170; Start 10/04/18 at 15:00 Famotidine (Pepcid) 20 mg BID GTB Last administered on 10/09/18 09:13; Admin Dose 20 MG; Start 10/04/18 at 21:00 Guaifenesin (Robitussin Liquid Cup) 300 mg QID PRN PO CONGESTION/COUGH Last administered on 10/09/18 09:14; Admin Dose 300 MG; Start 10/05/18 at 11:00 Loperamide HCl (Imodium Cap) 2 mg TID PRN GTB DIARRHEA; Start 10/04/18 at 15:00 Lorazepam (Ativan) 0.25 mg Q8H PRN GTB ANXIETY; Start 10/04/18 at 15:00 Metoprolol Tartrate (Lopressor) 50 mg BID GTB Last administered on 10/09/18at 09:14; Admin Dose 50 MG; Start 10/04/18 at 21:00 Ascorbic Acid (Vitamin C) 1,000 mg DAILY GTB Last administered on 10/09/18at 09:13; Admin Dose 1,000 MG; Start 10/04/18 at 15:00 Ondansetron HCl (Zofran Inj) 4 mg Q6H PRN IV NAUSEA AND/OR VOMITING Last administered on 10/05/18at 07:32; Admin Dose 4 MG; Start 10/05/18 at 07:00 Diagnostic Test (Pha) (Accu-Chek) 1 ea 02 XX Last administered on 10/07/18at 02:00; Admin Dose 1 EA; Start 10/06/18 at 02:00 Miscellaneous Information 1 ea NOTE XX ; Start 10/05/18 at 07:00 Glucose (Glutose) 15 gm Q15M PRN PO DECREASED GLUCOSE; Start 10/05/18 at 07:00 Glucose (Glutose) 22.5 gm Q15M PRN PO DECREASED GLUCOSE; Start 10/05/18 at 07:00 Dextrose (D50w Syringe) 25 ml Q15M PRN IV DECREASED GLUCOSE Last administered on 10/07/18at 00:56; Admin Dose 25 ML; Start 10/05/18 at 07:00 Dextrose (D50w Syringe) 50 ml Q15M PRN IV DECREASED GLUCOSE; Start 10/05/18 at 07:00 Glucagon (Glucagen) 1 mg Q15M PRN IM DECREASED GLUCOSE; Start 10/05/18 at 07:00 Glucose (Glutose) 15 gm Q15M PRN BUCCAL DECREASED GLUCOSE; Start 10/05/18 at 07:00 Acetaminophen/ Hydrocodone Bitart ([place] (5/325)) 1 tab Q6H PRN GTB MODERATE PAIN LEVEL 4-6 Last administered on 10/09/18at 09:13; Admin Dose 1 TAB; Start 10/05/18 at 11:00 Vancomycin HCl (Vanco Iv Per Pharmacy) VANCOMYCIN PER PHARMACY PER PROTOCOL XX ; Start 10/06/18 at 12:00 Insulin Aspart (Novolog Insulin Pen) (Adult SC Insulin - Moder... Q6 SC Last administered on 10/09/18at 05:53; Admin Dose 4 UNIT; Start 10/06/18 at 18:00 Vancomycin/Sodium Chloride 250 ml @ 125 mls/hr Q8H IVPB Last administered on 10/09/18at 09:13; Admin Dose 125 MLS/HR; Start 10/07/18 at 16:00 Cefepime HCl 50 ml @ 100 mls/hr Q12 IVPB Last administered on 10/09/18at 09:14; Admin Dose 100 MLS/HR; Start 10/08/18 at 13:00 Insulin Glargine (Lantus) 24 units QHS SC Last administered on 10/08/18at 20:55; Admin Dose 24 UNITS; Start 10/08/18 at 21:00 Diltiazem HCl (Cardizem Iv) 10 mg Q6H PRN IV ELEVATED HEART RATE Last administered on 10/09/18at 00:31; Admin Dose 10 MG; Start 10/08/18 at 18:00 Potassium Chloride 50 ml @ 50 mls/hr Q1H IVPB ; Start 10/09/18 at 10:00; Stop 10/09/18 at 12:59 Sodium Chloride 500 ml @ 500 mls/hr Q1H ONCE IV ; Start 10/09/18 at 10:00; Stop 10/09/18 at 10:59 Sodium Chloride 1,000 ml @ 75 mls/hr [id number] IV ; Start 10/09/18 at 10:00 SUZAN ROSS 13, 2019 10:35
--- NOTE | 2018-10-09 11:25 | CONS ---
Assessment/Plan Assessment/Plan Hospital Course (Demo Recall) All noted, no events over night Tm 99.6 Microbiology: Blood culture on admission grew coag negative staph species, urine culture negative, sputum culture growing PSA/MRSA Allergy: Sulfa Antimicrobials: Vancomycin, Cefepime Indwelling: Trach PEG peripheral IV Physical examination: This is an unfortunate chronically ill-appearing young woman who is awake in no distress. Head atraumatic normocephalic sclera nonicteric. Neck is supple, tracheostomy present. Chest rise symmetrical breat h sounds diminished bases. Heart: S1-S2. Abdomen soft bowel sounds present. Extremities without cyanosis Assessment: 1. Bacteremia, consistent with contaminant 2. Left lower lobe pneumonia 3. Chronic respiratory failure and dysphagia 4. History of craniotomy with encephalopathy 5. Diabetes and hypertension Plan: Patient remains stable, repeat blood cultures negative, continue abx to co mplete 7 days Consultation Date/Type/Reason Admit Date/Time Oct 04, 2018 at 00:30 Initial Consult Date 10/06/18 Type of Consult id Date/Time of Note DATE: 10/09/18 TIME: 11:23 Exam/Review of Systems Exam Vitals Vital Signs Date Temp Pulse Resp B/P (MAP) Pulse Ox O2 O2 Flow FiO2 Time Delivery Rate 10/09/18 98.5 87 19 122/84 99 Trach 11:00 (97) Collar 10/09/18 5.0 28 01:28 Results Result Diagram: 10/09/18 0738 10/09/18 0738 Results 24hrs Laboratory Tests Test 10/08/18 12:21 10/08/18 13:16 10/08/18 17:07 10/08/18 20:46 Bedside Glucose 346 H 241 H 120 405 *H Test 10/08/18 21:41 10/08/18 23:21 10/08/18 23:32 10/09/18 03:12 Glucose Level 423 #*H Vancomycin Level 14.6 Trough Bedside Glucose 265 H 192 Test 10/09/18 05:47 10/09/18 07:38 Bedside Glucose 191 White Blood Count 6.4 Red Blood Count 3.72 L Hemoglobin 11.2 L Hematocrit 33.1 L Mean Corpuscular 89.0 Volume Mean Corpuscular 30.1 Hemoglobin Mean Corpuscular 33.8 Hemoglobin Concent Red Cell 12.9 Distribution Width Platelet Count 313 # Mean Platelet Volume 11.1 H Immature 0.800 H Granulocytes % Neutrophils % 64.0 Lymphocytes % 17.1 Monocytes % 12.0 H Eosinophils % 5.3 Basophils % 0.8 Nucleated Red Blood 0.0 Cells % Immature 0.050 H Granulocytes # Neutrophils # 4.1 Lymphocytes # 1.1 Monocytes # 0.8 Eosinophils # 0.3 Basophils # 0.1 Nucleated Red Blood 0.0 Cells # Sodium Level 142 Potassium Level 3.4 L Chloride Level 108 Carbon Dioxide Level 25 Anion Gap 9 Blood Urea Nitrogen 10 Creatinine 0.40 L Est Glomerular > 60 Filtrat Rate mL/min Glucose Level 92 # Calcium Level 9.3 Medications Medication Current Medications IV Flush (NS 3 ml) 3 ml PER PROTOCOL IV ; Start 10/04/18 at 10:00 Ondansetron HCl (Zofran Tab) 4 mg Q6H PRN PO NAUSEA/VOMITING; Start 10/04/18 at 10:00 Acetaminophen (Tylenol Supp) 650 mg Q6H PRN [place] .PAIN 1-3 OR TEMP; Start 10/04/18 at 10:00 Docusate Sodium (Colace) 100 mg Q12H PRN PO .CONSTIPATION; Start 10/04/18 at 10:00 Magnesium Hydroxide (Milk Of Mag) 30 ml DAILY PRN PO .CONSTIPATION; Start 10/04/18 at 10:00 Bisacodyl (Dulcolax) 5 mg DAILY PRN PO .CONSTIPATION; Start 10/04/18 at 10:00 Bisacodyl (Dulcolax Supp) 10 mg DAILY PRN CA .CONSTIPATION; Start 10/04/18 at 10:00 Enoxaparin Sodium (Lovenox) 40 mg DAILY SC Last administered on 10/09/18at 09:48; Admin Dose 40 MG; Start 10/04/18 at 11:30 Albuterol/ Ipratropium (Duoneb) 3 ml Q6H RESP THERAPY HHN Last administered on 10/09/18at 01:28; Admin Dose 3 ML; Start 10/04/18 at 14:00 Acetaminophen (Tylenol Liquid (Ped)) 160 mg Q4H PRN GTB MILD PAIN(1-3) OR TEMP>38C Last administered on 10/05/18at 17:39; Admin Dose 160 MG; Start 10/04/18 at 14:30 Aspirin (Aspirin) 81 mg DAILY GTB Last administered on 10/09/18 09:13; Admin Dose 81 MG; Start 10/04/18 at 15:00 Baclofen (Lioresal) 10 mg Q6H PRN GTB MUSCLE SPASMS Last administered on 10/09/18 09:13; Admin Dose 10 MG; Start 10/04/18 at 15:00 Clonidine (Catapres) 0.2 mg Q4H PRN GTB FOR SBP ABOVE 170; Start 10/04/18 at 15:00 Famotidine (Pepcid) 20 mg BID GTB Last administered on 10/09/18 09:13; Admin Dose 20 MG; Start 10/04/18 at 21:00 Guaifenesin (Robitussin Liquid Cup) 300 mg QID PRN PO CONGESTION/COUGH Last administered on 10/09/18 09:14; Admin Dose 300 MG; Start 10/05/18 at 11:00 Loperamide HCl (Imodium Cap) 2 mg TID PRN GTB DIARRHEA; Start 10/04/18 at 15:00 Lorazepam (Ativan) 0.25 mg Q8H PRN GTB ANXIETY; Start 10/04/18 at 15:00 Metoprolol Tartrate (Lopressor) 50 mg BID GTB Last administered on 10/09/18 09:14; Admin Dose 50 MG; Start 10/04/18 at 21:00 Ascorbic Acid (Vitamin C) 1,000 mg DAILY GTB Last administered on 10/09/18 09:13; Admin Dose 1,000 MG; Start 10/04/18 at 15:00 Ondansetron HCl (Zofran Inj) 4 mg Q6H PRN IV NAUSEA AND/OR VOMITING Last administered on 10/05/18at 07:32; Admin Dose 4 MG; Start 10/05/18 at 07:00 Diagnostic Test (Pha) (Accu-Chek) 1 ea 02 XX Last administered on 10/07/18at 02:00; Admin Dose 1 EA; Start 10/06/18 at 02:00 Miscellaneous Information 1 ea NOTE XX ; Start 10/05/18 at 07:00 Glucose (Glutose) 15 gm Q15M PRN PO DECREASED GLUCOSE; Start 10/05/18 at 07:00 Glucose (Glutose) 22.5 gm Q15M PRN PO DECREASED GLUCOSE; Start 10/05/18 at 07:00 Dextrose (D50w Syringe) 25 ml Q15M PRN IV DECREASED GLUCOSE Last administered on 10/07/18at 00:56; Admin Dose 25 ML; Start 10/05/18 at 07:00 Dextrose (D50w Syringe) 50 ml Q15M PRN IV DECREASED GLUCOSE; Start 10/05/18 at 07:00 Glucagon (Glucagen) 1 mg Q15M PRN IM DECREASED GLUCOSE; Start 10/05/18 at 07:00 Glucose (Glutose) 15 gm Q15M PRN BUCCAL DECREASED GLUCOSE; Start 10/05/18 at 07:00 Acetaminophen/ Hydrocodone Bitart ([place] (5/325)) 1 tab Q6H PRN GTB MODERATE PAIN LEVEL 4-6 Last administered on 10/09/18at 09:13; Admin Dose 1 TAB; Start 10/05/18 at 11:00 Vancomycin HCl (Vanco Iv Per Pharmacy) VANCOMYCIN PER PHARMACY PER PROTOCOL XX ; Start 10/06/18 at 12:00 Insulin Aspart (Novolog Insulin Pen) (Adult SC Insulin - Moder... Q6 SC Last administered on 10/09/18at 05:53; Admin Dose 4 UNIT; Start 10/06/18 at 18:00 Vancomycin/Sodium Chloride 250 ml @ 125 mls/hr Q8H IVPB Last administered on 10/09/18at 09:13; Admin Dose 125 MLS/HR; Start 10/07/18 at 16:00 Cefepime HCl 50 ml @ 100 mls/hr Q12 IVPB Last administered on 10/09/18at 09:14; Admin Dose 100 MLS/HR; Start 10/08/18 at 13:00 Insulin Glargine (Lantus) 24 units QHS SC Last administered on 10/08/18at 20:55; Admin Dose 24 UNITS; Start 10/08/18 at 21:00 Diltiazem HCl (Cardizem Iv) 10 mg Q6H PRN IV ELEVATED HEART RATE Last administered on 10/09/18at 00:31; Admin Dose 10 MG; Start 10/08/18 at 18:00 Potassium Chloride 50 ml @ 50 mls/hr Q1H IVPB ; Start 10/09/18 at 10:00; Stop 10/09/18 at 12:59 Sodium Chloride 1,000 ml @ 75 mls/hr [id number] IV ; Start 10/09/18 at 10:00 BRENNEN CAO NP Oct 09, 2018 11:25
[2018-10-09] MEDS: POTASSIUM CHLORIDE 50 ML IVPB SCH ×3 (13:52→17:25)
[2018-10-09] MEDS: SOD CHLORIDE 0.9% 1,000 ML IV SCH ×2 (13:53→23:20)
--- NOTE | 2018-10-09 14:38 | PN ---
Date/Time of Note Date/Time of Note DATE: 10/09/18 TIME: 14:36 Assessment/Plan VTE Prophylaxis Risk score (from Ns)>0 risk: 4 SCD applied (from Ns): Yes Pharmacological prophylaxis: NA/contraindicated Pharm contraindication: low risk/ambulating Lines/Catheters IV C[facility]ter Type (from [email or web address] Mid Line Urinary Cath still in place: No Assessment/Plan Assessment/Plan 1. SIRS. Lactic acid is normal 2. Left side pneumonia. Xray chest is positive for Patchy left lower lobe pneumonia. Now with the gram-positive staph bacteremia, + TRACH culture + pseudomonas ans MRSA 3. VDRF with tracheostomy 4. s/p craniotomy on the left. Incomplete data. 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 Brain herniates beyond the margins of the craniectomy. Old posterior right basil ganglia lacunar infarct extending cephalad into the right parietal nichols radiata and centrum semiovale. Laminar necrosis/dystrophic calcification lateral left frontal lobe. Acute hemorrhage considered less likely. Paranasal sinus mucosal disease. Right mastoid air cell disease. 5. Dysphagia with G tube 6. DM type I, uncontrolled 7. Opiate dependence, per SNF record pt was on Dilaudid PO, Igo, Tramadol 8. Hypertension 9 Tachycardia likley sinus Assessment/Plan -cw vanco/Cefepime for 7 more days per ID - will start iv fluid for tachycardia - Repeat bld cx neg so far -DVT proph. Lovenox -increase insulin [place] 28 units -Hold hydralazine due to borderline hypotension -cw MTP , Will call cards -GI proph. Protonix -nebs around the clock -c/w tube feeding/gentle Result Diagram: 10/09/18 0738 10/09/18 0738 Results 24hrs Laboratory Tests Test 10/08/18 17:07 10/08/18 20:46 10/08/18 21:41 10/08/18 23:21 Bedside Glucose 120 405 *H Glucose Level 423 #*H Vancomycin Level 14.6 Trough Test 10/08/18 23:32 10/09/18 03:12 10/09/18 05:47 10/09/18 07:38 Bedside Glucose 265 H 192 191 White Blood Count 6.4 Red Blood Count 3.72 L Hemoglobin 11.2 L Hematocrit 33.1 L Mean Corpuscular 89.0 Volume Mean Corpuscular 30.1 Hemoglobin Mean Corpuscular 33.8 Hemoglobin Concent Red Cell 12.9 Distribution Width Platelet Count 313 # Mean Platelet Volume 11.1 H Immature 0.800 H Granulocytes % Neutrophils % 64.0 Lymphocytes % 17.1 Monocytes % 12.0 H Eosinophils % 5.3 Basophils % 0.8 Nucleated Red Blood 0.0 Cells % Immature 0.050 H Granulocytes # Neutrophils # 4.1 Lymphocytes # 1.1 Monocytes # 0.8 Eosinophils # 0.3 Basophils # 0.1 Nucleated Red Blood 0.0 Cells # Sodium Level 142 Potassium Level 3.4 L Chloride Level 108 Carbon Dioxide Level 25 Anion Gap 9 Blood Urea Nitrogen 10 Creatinine 0.40 L Est Glomerular > 60 Filtrat Rate mL/min Glucose Level 92 # Calcium Level 9.3 Test 10/09/18 13:24 Bedside Glucose 267 H Subjective 24 Hr Interval Summary Free Text/Dictation She was tachycardic up to 160s yesterday Heart rate was sinus Exam/Review of Systems Exam Vitals Vital Signs Date Temp Pulse Resp B/P (MAP) Pulse Ox O2 O2 Flow FiO2 Time Delivery Rate 10/09/18 T Tube 12:10 10/09/18 98.5 87 19 122/84 99 11:00 (97) 10/09/18 5.0 28 01:28 Exam H EENT exam; suppl3: Tracheostomy in place. Attached to T-piece. Chest exam; clear to auscultation. S1-S2 audible, no murmurs. Regular rhythm. Abdomen exam; soft, G-tube in place. No organomegaly. Bowel sounds audible. Extremity exam; no peripheral edema. [employer] exam; patient is awake but noncommunicative. Results Results 24hrs Laboratory Tests Test 10/08/18 17:07 10/08/18 20:46 10/08/18 21:41 10/08/18 23:21 Bedside Glucose 120 405 *H Glucose Level 423 #*H Vancomycin Level 14.6 Trough Test 10/08/18 23:32 10/09/18 03:12 10/09/18 05:47 10/09/18 07:38 Bedside Glucose 265 H 192 191 White Blood Count 6.4 Red Blood Count 3.72 L Hemoglobin 11.2 L Hematocrit 33.1 L Mean Corpuscular 89.0 Volume Mean Corpuscular 30.1 Hemoglobin Mean Corpuscular 33.8 Hemoglobin Concent Red Cell 12.9 Distribution Width Platelet Count 313 # Mean Platelet Volume 11.1 H Immature 0.800 H Granulocytes % Neutrophils % 64.0 Lymphocytes % 17.1 Monocytes % 12.0 H Eosinophils % 5.3 Basophils % 0.8 Nucleated Red Blood 0.0 Cells % Immature 0.050 H Granulocytes # Neutrophils # 4.1 Lymphocytes # 1.1 Monocytes # 0.8 Eosinophils # 0.3 Basophils # 0.1 Nucleated Red Blood 0.0 Cells # Sodium Level 142 Potassium Level 3.4 L Chloride Level 108 Carbon Dioxide Level 25 Anion Gap 9 Blood Urea Nitrogen 10 Creatinine 0.40 L Est Glomerular > 60 Filtrat Rate mL/min Glucose Level 92 # Calcium Level 9.3 Test 10/09/18 13:24 Bedside Glucose 267 H Medications Medication Current Medications IV Flush (NS 3 ml) 3 ml PER PROTOCOL IV ; Start 10/04/18 at 10:00 Ondansetron HCl (Zofran Tab) 4 mg Q6H PRN PO NAUSEA/VOMITING; Start 10/04/18 at 10:00 Acetaminophen (Tylenol Supp) 650 mg Q6H PRN [place] .PAIN 1-3 OR TEMP; Start 10/04/18 at 10:00 Docusate Sodium (Colace) 100 mg Q12H PRN PO .CONSTIPATION; Start 10/04/18 at 10:00 Magnesium Hydroxide (Milk Of Mag) 30 ml DAILY PRN PO .CONSTIPATION; Start 10/04/18 at 10:00 Bisacodyl (Dulcolax) 5 mg DAILY PRN PO .CONSTIPATION; Start 10/04/18 at 10:00 Bisacodyl (Dulcolax Supp) 10 mg DAILY PRN [place] .CONSTIPATION; Start 10/04/18 at 10 :00 Enoxaparin Sodium (Lovenox) 40 mg DAILY SC Last administered on 10/09/18at 09:48; Admin Dose 40 MG; Start 10/04/18 at 11:30 Albuterol/ Ipratropium (Duoneb) 3 ml Q6H RESP THERAPY HHN Last administered on 10/09/18at 01:28; Admin Dose 3 ML; Start 10/04/18 at 14:00 Acetaminophen (Tylenol Liquid (Ped)) 160 mg Q4H PRN GTB MILD PAIN(1-3) OR TEMP>38C Last administered on 10/05/18 17:39; Admin Dose 160 MG; Start 10/04/18 at 14:30 Aspirin (Aspirin) 81 mg DAILY GTB Last administered on 10/09/18 09:13; Admin Dose 81 MG; Start 10/04/18 at 15:00 Baclofen (Lioresal) 10 mg Q6H PRN GTB MUSCLE SPASMS Last administered on 10/09/18 09:13; Admin Dose 10 MG; Start 10/04/18 at 15:00 Clonidine (Catapres) 0.2 mg Q4H PRN GTB FOR SBP ABOVE 170; Start 10/04/18 at 15:00 Famotidine (Pepcid) 20 mg BID GTB Last administered on 10/09/18 09:13; Admin Dose 20 MG; Start 10/04/18 at 21:00 Guaifenesin (Robitussin Liquid Cup) 300 mg QID PRN PO CONGESTION/COUGH Last administered on 10/09/18 09:14; Admin Dose 300 MG; Start 10/05/18 at 11:00 Loperamide HCl (Imodium Cap) 2 mg TID PRN GTB DIARRHEA; Start 10/04/18 at 15:00 Lorazepam (Ativan) 0.25 mg Q8H PRN GTB ANXIETY; Start 10/04/18 at 15:00 Metoprolol Tartrate (Lopressor) 50 mg BID GTB Last administered on 10/09/18 09:14; Admin Dose 50 MG; Start 10/04/18 at 21:00 Ascorbic Acid (Vitamin C) 1,000 mg DAILY GTB Last administered on 10/09/18 09:13; Admin Dose 1,000 MG; Start 10/04/18 at 15:00 Ondansetron HCl (Zofran Inj) 4 mg Q6H PRN IV NAUSEA AND/OR VOMITING Last administered on 10/05/18at 07:32; Admin Dose 4 MG; Start 10/05/18 at 07:00 Diagnostic Test (Pha) (Accu-Chek) 1 ea 02 XX Last administered on 10/07/18at 02:00; Admin Dose 1 EA; Start 10/06/18 at 02:00 Miscellaneous Information 1 ea NOTE XX ; Start 10/05/18 at 07:00 Glucose (Glutose) 15 gm Q15M PRN PO DECREASED GLUCOSE; Start 10/05/18 at 07:00 Glucose (Glutose) 22.5 gm Q15M PRN PO DECREASED GLUCOSE; Start 10/05/18 at 07:00 Dextrose (D50w Syringe) 25 ml Q15M PRN IV DECREASED GLUCOSE Last administered on 10/07/18at 00:56; Admin Dose 25 ML; Start 10/05/18 at 07:00 Dextrose (D50w Syringe) 50 ml Q15M PRN IV DECREASED GLUCOSE; Start 10/05/18 at 07:00 Glucagon (Glucagen) 1 mg Q15M PRN IM DECREASED GLUCOSE; Start 10/05/18 at 07:00 Glucose (Glutose) 15 gm Q15M PRN BUCCAL DECREASED GLUCOSE; Start 10/05/18 at 07:00 Acetaminophen/ Hydrocodone Bitart ([place] (5/325)) 1 tab Q6H PRN GTB MODERATE PAIN LEVEL 4-6 Last administered on 10/09/18at 09:13; Admin Dose 1 TAB; Start 10/05/18 at 11:00 Vancomycin HCl (Vanco Iv Per Pharmacy) VANCOMYCIN PER PHARMACY PER PROTOCOL XX ; Start 10/06/18 at 12:00 Insulin Aspart (Novolog Insulin Pen) (Adult SC Insulin - Moder... Q6 SC Last administered on 10/09/18at 13:30; Admin Dose 8 UNIT; Start 10/06/18 at 18:00 Vancomycin/Sodium Chloride 250 ml @ 125 mls/hr Q8H IVPB Last administered on 10/09/18at 09:13; Admin Dose 125 MLS/HR; Start 10/07/18 at 16:00 Cefepime HCl 50 ml @ 100 mls/hr Q12 IVPB Last administered on 10/09/18at 09:14; Admin Dose 100 MLS/HR; Start 10/08/18 at 13:00 Insulin Glargine (Lantus) 24 units QHS SC Last administered on 10/08/18at 20:55; Admin Dose 24 UNITS; Start 10/08/18 at 21:00 Diltiazem HCl (Cardizem Iv) 10 mg Q6H PRN IV ELEVATED HEART RATE Last administered on 10/09/18at 00:31; Admin Dose 10 MG; Start 10/08/18 at 18:00 Sodium Chloride 1,000 ml @ 75 mls/hr [id number] IV Last administered on 10/09/18at 13:53; Admin Dose 75 MLS/HR; Start 10/09/18 at 10:00 STEPHANY MCNAIR MD Oct 09, 2018 14:38
--- NOTE | 2018-10-09 20:03 | CONS ---
DATE OF ADMISSION: 10/04/2018 DATE OF CONSULTATION: 10/09/2018 TYPE OF CONSULTATION: Cardiology. REASON FOR CONSULTATION: Tachyarrhythmia. REQUESTING PHYSICIAN: Estrella Mcnair MD HISTORY OF PRESENT ILLNESS: Ms. Hidalgo is a 23-year-old female with a history of a CVA approximately 1 year prior, status post craniotomy with subsequent chronic encephalopathy with a tracheostomy, dys phagia with G-tube placement, chronic respiratory failure, diabetes mellitus who presented with decre ased mental status from baseline. Initially upon arrival, temperature was 98.4, blood pressure 126/7 0, pulse 137, respiratory rate 26, satting 94%. The patient's labs revealed white blood cell count o f 13.7, hemoglobin 13.1, platelet count of 318, sodium of 140, potassium 3.9, creatinine 0.4, BUN 13, troponin negative, albumin of 4.4, INR of 0.93. Vancomycin level 19. UA negative. The patient und erwent a chest x-ray revealing patchy left lower pneumonia; a head CT that revealed remote left-sided craniotomy with old left cerebral hemispheric infarct consistent with encephalomalacia and gliosis, old posterior right basal ganglia lacunar infarcts and findings of right parietal nichols radiata chica nant necrosis. The patient's electrocardiogram revealed sinus tachycardia at 119, normal axis, kevon l intervals, nonspecific ST-T wave abnormalities diffusely. The patient was subsequently admitted to the floor and since admit to floor has been initiated on broad spectrum antibiotic therapy with beta blockers, aspirin. In this setting, the patient has had recurrent fevers to low grade of 100.2 to 1 00.5 and has recurrent heart rates up to the 130 to 140 and even went to 150s. Given these findings, cardiology consultation has been requested to ensure the patient's tachyarrhythmias are not associat ed with fever and not primary arrhythmia of the heart. PAST MEDICAL HISTORY: As above in the HPI as the patient is being nonverbal. MEDICATIONS CURRENTLY IN HOSPITAL: 1. Lantus. 2. Diltiazem 10 mg IV push q.6. 3. Cefepime. 4. Insulin. 5. Vancomycin. 6. [place]. 7. Toprol 50 mg p.o. b.i.d. 8. Pepcid 20 mg b.i.d. 9. Aspirin 81 mg daily. 10. Baclofen. 11. Lovenox 40 mg subcutaneously daily. 12. Tylenol. 13. Colace. 14. Milk of Magnesia. 15. Dulcolax. ALLERGIES: SULFA. SOCIAL HISTORY: No current tobacco, EtOH or illicit drugs. FAMILY HISTORY: No history of sudden cardiac or early CAD. REVIEW OF SYSTEMS: As above in HPI. CONSTITUTIONAL: No fevers, chills. PULMONARY: Chronic respiratory failure, status post trach. GASTROINTESTINAL: Dysphagia, status post G-tube. GENITOURINARY: No hematuria. MUSCULOSKELETAL: Degenerative joint disease. PSYCHIATRIC: No documented psych history. NEUROLOGIC: Chronic encephalopathy, history of CVA. ENDOCRINE: Diabetes mellitus. PHYSICAL EXAMINATION: VITAL SIGNS: Temperature of 98.7, blood pressure 129/86, pulse 95, respiratory rate 18, satting 98% on 6 liters on trach collar. GENERAL: The patient is alert, awake, nonverbal. NECK: Tracheostomy in place. CHEST: Upper airway transmitted rhonchus sounds. HEART: Tachycardic, regular rhythm, normal S1, S2, I/ systolic murmur. Nondisplaced PMI. ABDOMEN: Positive bowel sounds, soft. Positive G-tube. EXTREMITIES: Somewhat contracted. No edema, 1+ pulses bilateral posterior tibial. LABORATORY DATA: Most recently from today, white blood cell count of 6.4, hemoglobin 11.2, platelet count 313. Sodium of 142, potassium 3.4, creatinine 0.4, BUN 10, calcium 9.3. INR 0.93. ABG with p H of 7.482, a pO2 of 63 on venous blood gas. IMAGING STUDIES: As above in HPI with chest x-ray from 10/06/2018 revealing improved left basilar at electasis and infiltrates, tracheostomy tube in place. ELECTROCARDIOGRAM: As above in HPI. No further electrocardiograms for my review at this time. IMPRESSION: 1. Tachyarrhythmia at this time most consistent with episodes of sinus tachycardia in the setting of fevers, but also at times maybe a concern for possible primary rhythm of the heart, goes to approxim ately 150. We will continue to assess. 2. Hypertension, under good control. 3. Chronic respiratory failure, status post tracheostomy. 4. Dysphagia, status post G-tube. 5. History of cerebrovascular accident. 6. Chronic encephalopathy. 7. Nonverbal state. 8. Pneumonia. 9. Anemia. RECOMMENDATIONS: 1. At this time, we would maintain the patient on telemetry monitoring to follow rhythm and rates cl osely. 2. Check a TSH to subclinical hyperthyroidism is not contributing to any bouts of tachyarrhythmia. 3. We would check a 2D echo to further assess the patient's ejection fraction, wall motion and major valve abnormalities. Rule out any structural heart disease. 4. Check serial EKGs to continue to assess ongoing changes in the patient's current rhythm. 5. Continue the patient's antibiotics and follow up all culture data. 6. We will continue the patient's beta anthony and we will add calcium channel anthony in attempt to suppress recurrent bouts of tachyarrhythmias as possible. 7. Continue the patient's aspirin at this time. 8. Follow the patient's blood sugars closely on Lantus. Thank you for allowing me to take part in the care of this patient. I will continue to follow her ve ry closely with you with further recommendations to be made as the [facility] Dictated By: ANTONIO HOYOS/SAROJ Conf#: [id number] DID#: [id number] CC: LG JEFFERS MD; DALIA MCQUEEN MD; ESTRELLA MCNAIR;*End*
[2018-10-09] MEDS ORDERED: INSULIN GLARGINE [LANTus] (100 UNITS/ML) SYG SC SCH (21:00)
[2018-10-09] MEDS: DILTIAZEM 30 MG TAB PO SCH (23:22)
[2018-10-10] VITALS (10 sets, daily range): BP systolic 97–131; BP diastolic 62–75; PULSE 18–111; RESP 18–19; Ht 152.4 cm; Wt 53.0 kg
[2018-10-10] MEDS: ALBUTEROL/IPRATROPIUM (NEB) 3 ML AMP HHN SCH ×3 (01:02→14:29)
[2018-10-10] MEDS: Insulin NOVOLOG SS MODERATE Algorithm(NPO/TPN/ENTERAL FEEDS) SC SCH ×4 (01:09→18:30)
[2018-10-10] MEDS: ACCU-CHEK XX SCH (02:00)
[2018-10-10] MEDS: DILTIAZEM 30 MG TAB PO SCH ×2 (06:58→14:23)
[2018-10-10] MEDS: FAMOTIDINE 20 MG TAB GTB SCH (08:39)
[2018-10-10] MEDS: ASCORBIC ACID 500 MG TAB GTB SCH (08:39)
[2018-10-10] MEDS: ASPIRIN 81 MG TAB GTB SCH (08:39)
[2018-10-10] MEDS: VANCOMYCIN 750 MG (PMX) 250 ML IVPB SCH ×2 (08:39→15:30)
[2018-10-10] MEDS: METOPROLOL 50 MG TAB GTB SCH (08:40)
[2018-10-10] MEDS: ENOXAPARIN 40 MG/0.4 ML SYG SC SCH (09:25)
--- NOTE | 2018-10-10 10:38 | CONS ---
Consultation Date/Type/Reason Admit Date/Time Oct 04, 2018 at 00:30 Initial Consult Date 10/06/18 Type of Consult Pulmonary Patient is a 23-year-old woman who was sent over to the hospital from intermediate with low-grade fever. Upon evaluation a chest x-ray was done which is showing possible left lower lobe pneumonia. Patient started on Rocephin with improvement in leukocytosis. Because of chronic encephalopathy patient is unable to give any history by herself whatsoever. Patient however did not appear to be in any distress whatsoever. Past medical history; 1. 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 2. History of tracheostomy, maintained on T-piece. 3. History of muscle spasms. 4. Chronic dysphagia, status post G-tube placement in the past. Medications; reviewed. Allergies; sulfa drugs. Family history, social history, occupational history is noncontributory. Review of systems; unable to be obtained. General exam; young woman, awake, smiles on eye contact but is noncommunicative. Date/Time of Note DATE: 10/10/18 TIME: 10:37 24 HR Interval Summary Free Text/Dictation Patient's condition is stable. Has remained hemodynamically stable. General exam; young woman, awake, noncommunicative. Currently in no distress. On T-piece via tracheostomy. HEENT exam; supple neck, no JVD. No lymphadenopathy. Midline trachea. No thyromegaly. Patient has fair dentition. Tracheostomy in place. Attached to T-piece. Chest exam; clear to auscultation. S1-S2 audible, no murmurs. Regular rhythm. Abdomen exam; soft, no organomegaly. G-tube in place. Bowel sounds audible. Abdomen is nondistended. Extremity exam; no peripheral edema. Patient has a flexion contractures. DRUM DRIER exam; patient awake but noncommunicative. Assessment and recommendations; 1. Patient admitted with left lower lobe pneumonia with marked interval improvement. 2. History of chronic encephalopathy 3. History of chronic respiratory failure, maintained on T-piece. 4. Muscle spasms. 5. Diabetes and hypertension. Continue current supportive care. Consider transfer to intermediate off antibiotics. Exam/Review of Systems Exam Vitals Vital Signs Date Temp Pulse Resp B/P (MAP) Pulse Ox O2 O2 Flow FiO2 Time Delivery Rate 10/10/18 87 08:12 10/10/18 5.0 28 08:10 10/10/18 20 99 Aerosol 08:10 T Tube 10/10/18 98.6 117/75 07:42 (89) Intake and Output 10/09/18 10/09/18 10/10/18 1515:00 23:00 07:00 IntakeIntake Total 1170 ml 1270 ml BalanceBalance 1170 ml 1270 ml Results Result Diagram: 10/09/18 0738 10/09/18 1641 Results 24hrs Laboratory Tests Test 10/09/18 13:24 10/09/18 16:27 10/09/18 16:34 10/09/18 16:41 Bedside Glucose 267 H 31 *L 267 H Glucose Level 223 #H Test 10/09/18 16:43 10/09/18 21:31 10/10/18 01:02 10/10/18 06:54 Bedside Glucose 221 H 352 H 183 125 Medications Medication Current Medications IV Flush (NS 3 ml) 3 ml PER PROTOCOL IV ; Start 10/04/18 at 10:00 Ondansetron HCl (Zofran Tab) 4 mg Q6H PRN PO NAUSEA/VOMITING; Start 10/04/18 at 10:00 Acetaminophen (Tylenol Supp) 650 mg Q6H PRN [place] .PAIN 1-3 OR TEMP; Start 10/04/18 at 10:00 Docusate Sodium (Colace) 100 mg Q12H PRN PO .CONSTIPATION; Start 10/04/18 at 10:00 Magnesium Hydroxide (Milk Of Mag) 30 ml DAILY PRN PO .CONSTIPATION; Start 10/04/18 at 10:00 Bisacodyl (Dulcolax) 5 mg DAILY PRN PO .CONSTIPATION; Start 10/04/18 at 10:00 Bisacodyl (Dulcolax Supp) 10 mg DAILY PRN [place] .CONSTIPATION; Start 10/04/18 at 10:00 Enoxaparin Sodium (Lovenox) 40 mg DAILY SC Last administered on 10/10/18at 09:25; Admin Dose 40 MG; Start 10/04/18 at 11:30 Albuterol/ Ipratropium (Duoneb) 3 ml Q6H RESP THERAPY HHN Last administered on 10/10/18at 08:04; Admin Dose 3 ML; Start 10/04/18 at 14:00 Acetaminophen (Tylenol Liquid (Ped)) 160 mg Q4H PRN GTB MILD PAIN(1-3) OR TEMP>38C Last administered on 10/05/18 17:39; Admin Dose 160 MG; Start 10/04/18 at 14:30 Aspirin (Aspirin) 81 mg DAILY GTB Last administered on 10/10/18 08:39; Admin Dose 81 MG; Start 10/04/18 at 15:00 Baclofen (Lioresal) 10 mg Q6H PRN GTB MUSCLE SPASMS Last administered on 10/09/18 09:13; Admin Dose 10 MG; Start 10/04/18 at 15:00 Clonidine (Catapres) 0.2 mg Q4H PRN GTB FOR SBP ABOVE 170; Start 10/04/18 at 15:00 Famotidine (Pepcid) 20 mg BID GTB Last administered on 10/10/18 08:39; Admin Dose 20 MG; Start 10/04/18 at 21:00 Guaifenesin (Robitussin Liquid Cup) 300 mg QID PRN PO CONGESTION/COUGH Last administered on 10/09/18 09:14; Admin Dose 300 MG; Start 10/05/18 at 11:00 Loperamide HCl (Imodium Cap) 2 mg TID PRN GTB DIARRHEA; Start 10/04/18 at 15:00 Lorazepam (Ativan) 0.25 mg Q8H PRN GTB ANXIETY; Start 10/04/18 at 15:00 Metoprolol Tartrate (Lopressor) 50 mg BID GTB Last administered on 10/10/18 08:40; Admin Dose 50 MG; Start 10/04/18 at 21:00 Ascorbic Acid (Vitamin C) 1,000 mg DAILY GTB Last administered on 10/10/18 08:39; Admin Dose 1,000 MG; Start 10/04/18 at 15:00 Ondansetron HCl (Zofran Inj) 4 mg Q6H PRN IV NAUSEA AND/OR VOMITING Last administered on 10/05/18 07:32; Admin Dose 4 MG; Start 10/05/18 at 07:00 Diagnostic Test (Pha) (Accu-Chek) 1 ea 02 XX Last administered on 10/07/18at 02:00; Admin Dose 1 EA; Start 10/06/18 at 02:00 Miscellaneous Information 1 ea NOTE XX ; Start 10/05/18 at 07:00 Glucose (Glutose) 15 gm Q15M PRN PO DECREASED GLUCOSE; Start 10/05/18 at 07:00 Glucose (Glutose) 22.5 gm Q15M PRN PO DECREASED GLUCOSE; Start 10/05/18 at 07:00 Dextrose (D50w Syringe) 25 ml Q15M PRN IV DECREASED GLUCOSE Last administered on 10/07/18at 00:56; Admin Dose 25 ML; Start 10/05/18 at 07:00 Dextrose (D50w Syringe) 50 ml Q15M PRN IV DECREASED GLUCOSE Last administered on 10/09/18at 16:32; Admin Dose 50 ML; Start 10/05/18 at 07:00 Glucagon (Glucagen) 1 mg Q15M PRN IM DECREASED GLUCOSE; Start 10/05/18 at 07:00 Glucose (Glutose) 15 gm Q15M PRN BUCCAL DECREASED GLUCOSE; Start 10/05/18 at 07:00 Acetaminophen/ Hydrocodone Bitart ([place] (5/325)) 1 tab Q6H PRN GTB MODERATE PAIN LEVEL 4-6 Last administered on 10/09/18at 23:23; Admin Dose 1 TAB; Start 10/05/18 at 11:00 Vancomycin HCl (Vanco Iv Per Pharmacy) VANCOMYCIN PER PHARMACY PER PROTOCOL XX ; Start 10/06/18 at 12:00 Insulin Aspart (Novolog Insulin Pen) (Adult SC Insulin - Moder... Q6 SC Last administered on 10/10/18at 01:09; Admin Dose 2 UNIT; Start 10/06/18 at 18:00 Vancomycin/Sodium Chloride 250 ml @ 125 mls/hr Q8H IVPB Last administered on 10/10/18at 08:39; Admin Dose 125 MLS/HR; Start 10/07/18 at 16:00 Cefepime HCl 50 ml @ 100 mls/hr Q12 IVPB Last administered on 10/09/18at 21:36; Admin Dose 100 MLS/HR; Start 10/08/18 at 13:00 Diltiazem HCl (Cardizem Iv) 10 mg Q6H PRN IV ELEVATED HEART RATE Last administered on 10/09/18at 00:31; Admin Dose 10 MG; Start 10/08/18 at 18:00 Sodium Chloride 1,000 ml @ 75 mls/hr [id number] IV Last administered on 10/09/18at 13:53; Admin Dose 75 MLS/HR; Start 10/09/18 at 10:00 Insulin Glargine (Lantus) 28 units QHS SC Last administered on 10/09/18at 21:50; Admin Dose 28 UNITS; Start 10/09/18 at 21:00 Diltiazem HCl (Cardizem) 30 mg Q8 PO Last administered on 10/10/18at 06:58; Admin Dose 30 MG; Start 10/09/18 at 22:00 SUZAN ROSS Oct 10, 2018 10:38
[2018-10-10] MEDS: CEFEPIME 1GM/50 ML (PMX) 50 ML IVPB SCH (11:31)
--- NOTE | 2018-10-10 11:37 | RADRPT ---
Vent Rate: 82 bpm RR Interval: 728 msec NC Interval: 126 msec QRS Duration: 69 msec QT Interval: 360 msec QTC Interval: 422 msec P-R-T [place]: 12 - 77 - 31 degrees Sinus rhythm...normal P axis, V-rate 50- 99 Electronically Signed By: Nayan Severino
[2018-10-10] MEDS: SOD CHLORIDE 0.9% 1,000 ML IV SCH (11:41)
--- NOTE | 2018-10-10 12:54 | CONS ---
Assessment/Plan Assessment/Plan Hospital Course (Demo Recall) No events, looks comfortable, no fevers Microbiology: Blood culture on admission grew coag negative staph species, urine culture negative, sputum culture growing PSA/MRSA Allergy: Sulfa Antimicrobials: Vancomycin, Cefepime Indwelling: Trach PEG peripheral IV Physical examination: This is an unfortunate chronically ill-appearing young woman who is awake in no distress. Head atraumatic normocephalic sclera nonicteric. Neck is supple, tracheostomy present. Chest rise symmetrical breat h sounds diminished bases. Heart: S1-S2. Abdomen soft bowel sounds present. Extremities without cyanosis Assessment: 1. Bacteremia, consistent with contaminant 2. Left lower lobe pneumonia 3. Chronic respiratory failure and dysphagia 4. History of craniotomy with encephalopathy 5. Diabetes and hypertension Plan: Patient remains stable, repeat blood cultures negative, continue abx to co mplete 7 days Consultation Date/Type/Reason Admit Date/Time Oct 04, 2018 at 00:30 Initial Consult Date 10/06/18 Type of Consult id Date/Time of Note DATE: 10/10/18 TIME: 12:53 Exam/Review of Systems Exam Vitals Vital Signs Date Temp Pulse Resp B/P (MAP) Pulse Ox O2 O2 Flow FiO2 Time Delivery Rate 10/10/18 85 12:09 10/10/18 98.5 18 119/75 98 11:25 (90) 10/10/18 5.0 28 08:10 10/10/18 Aerosol 08:10 T Tube Intake and Output 10/09/18 10/09/18 10/10/18 1515:00 23:00 07:00 IntakeIntake Total 1170 ml 1270 ml BalanceBalance 1170 ml 1270 ml Results Result Diagram: 10/09/18 0738 10/09/18 1641 Results 24hrs Laboratory Tests Test 10/09/18 13:24 10/09/18 16:27 10/09/18 16:34 10/09/18 16:41 Bedside Glucose 267 H 31 *L 267 H Glucose Level 223 #H Test 10/09/18 16:43 10/09/18 21:31 10/10/18 01:02 10/10/18 06:54 Bedside Glucose 221 H 352 H 183 125 Test 10/10/18 11:36 Bedside Glucose 212 Medications Medication Current Medications IV Flush (NS 3 ml) 3 ml PER PROTOCOL IV ; Start 10/04/18 at 10:00 Ondansetron HCl (Zofran Tab) 4 mg Q6H PRN PO NAUSEA/VOMITING; Start 10/04/18 at 10:00 Acetaminophen (Tylenol Supp) 650 mg Q6H PRN [place] .PAIN 1-3 OR TEMP; Start 10/04/18 at 10:00 Docusate Sodium (Colace) 100 mg Q12H PRN PO .CONSTIPATION; Start 10/04/18 at 10:00 Magnesium Hydroxide (Milk Of Mag) 30 ml DAILY PRN PO .CONSTIPATION; Start 10/04/18 at 10:00 Bisacodyl (Dulcolax) 5 mg DAILY PRN PO .CONSTIPATION; Start 10/04/18 at 10:00 Bisacodyl (Dulcolax Supp) 10 mg DAILY PRN [place] .CONSTIPATION; Start 10/04/18 at 10:00 Enoxaparin Sodium (Lovenox) 40 mg DAILY SC Last administered on 10/10/18at 09:25; Admin Dose 40 MG; Start 10/04/18 at 11:30 Albuterol/ Ipratropium (Duoneb) 3 ml Q6H RESP THERAPY HHN Last administered on 10/10/18at 08:04; Admin Dose 3 ML; Start 10/04/18 at 14:00 Acetaminophen (Tylenol Liquid (Ped)) 160 mg Q4H PRN GTB MILD PAIN(1-3) OR TEMP>38C Last administered on 10/05/18at 17:39; Admin Dose 160 MG; Start 10/04/18 a t 14:30 Aspirin (Aspirin) 81 mg DAILY GTB Last administered on 10/10/18at 08:39; Admin Dose 81 MG; Start 10/04/18 at 15:00 Baclofen (Lioresal) 10 mg Q6H PRN GTB MUSCLE SPASMS Last administered on 10/09at 09:13; Admin Dose 10 MG; Start 10/04/18 at 15:00 Clonidine (Catapres) 0.2 mg Q4H PRN GTB FOR SBP ABOVE 170; Start 10/04/18 at 15:00 Famotidine (Pepcid) 20 mg BID GTB Last administered on 10/10/18at 08:39; Admin Dose 20 MG; Start 10/04/18 at 21:00 Guaifenesin (Robitussin Liquid Cup) 300 mg QID PRN PO CONGESTION/COUGH Last administered on 10/09/18at 09:14; Admin Dose 300 MG; Start 10/05/18 at 11:00 Loperamide HCl (Imodium Cap) 2 mg TID PRN GTB DIARRHEA; Start 10/04/18 at 15:00 Lorazepam (Ativan) 0.25 mg Q8H PRN GTB ANXIETY; Start 10/04/18 at 15:00 Metoprolol Tartrate (Lopressor) 50 mg BID GTB Last administered on 10/10/18at 08:40; Admin Dose 50 MG; Start 10/04/18 at 21:00 Ascorbic Acid (Vitamin C) 1,000 mg DAILY GTB Last administered on 10/10/18at 08:39; Admin Dose 1,000 MG; Start 10/04/18 at 15:00 Ondansetron HCl (Zofran Inj) 4 mg Q6H PRN IV NAUSEA AND/OR VOMITING Last administered on 10/05/18at 07:32; Admin Dose 4 MG; Start 10/05/18 at 07:00 Diagnostic Test (Pha) (Accu-Chek) 1 ea 02 XX Last administered on 10/07/18at 02:00; Admin Dose 1 EA; Start 10/06/18 at 02:00 Miscellaneous Information 1 ea NOTE XX ; Start 10/05/18 at 07:00 Glucose (Glutose) 15 gm Q15M PRN PO DECREASED GLUCOSE; Start 10/05/18 at 07:00 Glucose (Glutose) 22.5 gm Q15M PRN PO DECREASED GLUCOSE; Start 10/05/18 at 07:00 Dextrose (D50w Syringe) 25 ml Q15M PRN IV DECREASED GLUCOSE Last administered on 10/07/18at 00:56; Admin Dose 25 ML; Start 10/05/18 at 07:00 Dextrose (D50w Syringe) 50 ml Q15M PRN IV DECREASED GLUCOSE Last administered on 10/09/18at 16:32; Admin Dose 50 ML; Start 10/05/18 at 07:00 Glucagon (Glucagen) 1 mg Q15M PRN IM DECREASED GLUCOSE; Start 10/05/18 at 07:00 Glucose (Glutose) 15 gm Q15M PRN BUCCAL DECREASED GLUCOSE; Start 10/05/18 at 07:00 Acetaminophen/ Hydrocodone Bitart ([place] (5/325)) 1 tab Q6H PRN GTB MODERATE PAIN LEVEL 4-6 Last administered on 10/09/18 23:23; Admin Dose 1 TAB; Start 10/05/18 at 11:00 Vancomycin HCl (Vanco Iv Per Pharmacy) VANCOMYCIN PER PHARMACY PER PROTOCOL XX ; Start 10/06/18 at 12:00 Insulin Aspart (Novolog Insulin Pen) (Adult SC Insulin - Moder... Q6 SC Last administered on 10/10/18 11:40; Admin Dose 4 UNIT; Start 10/06/18 at 18:00 Vancomycin/Sodium Chloride 250 ml @ 125 mls/hr Q8H IVPB Last administered on 10/10/18 08:39; Admin Dose 125 MLS/HR; Start 10/07/18 at 16:00 Cefepime HCl 50 ml @ 100 mls/hr Q12 IVPB Last administered on 10/10/18 11:31; Admin Dose 100 MLS/HR; Start 10/08/18 at 13:00 Diltiazem HCl (Cardizem Iv) 10 mg Q6H PRN IV ELEVATED HEART RATE Last administered on 10/09/18 00:31; Admin Dose 10 MG; Start 10/08/18 at 18:00 Sodium Chloride 1,000 ml @ 75 mls/hr [id number] IV Last administered on 10/09/18 13:53; Admin Dose 75 MLS/HR; Start 10/09/18 at 10:00 Insulin Glargine (Lantus) 28 units QHS SC Last administered on 10/09/18 21:50; Admin Dose 28 UNITS; Start 10/09/18 at 21:00 Diltiazem HCl (Cardizem) 30 mg Q8 PO Last administered on 10/10/18 06:58; Admin Dose 30 MG; Start 10/09/18 at 22:00 BRENNEN CAO NP Oct 10, 2018 12:54
--- NOTE | 2018-10-10 13:00 | DS ---
Date/Time of Note Date/Time of Note DATE: 10/10/18 TIME: 13:00 Discharge Summary Admission/Discharge Info Admit Date/Time Oct 04, 2018 at 00:30 Discharge Date/Time Discharge Diagnosis Pneumonia MRSA and pseudomonas Patient Condition: Stable Consults pulmonary dr Nguyen/Ha, ID dr Ridley Hx of Present Illness This is a 23[facility]year-old [facility] resident presents to ER for evaluation of being less active than usual. The information is taken from medical record. Pt is non verbal and he base line is unknown. Patient resides at [facility]. Pt has tracheostomy and G tube. Hospital Course This is a 23-year-old [facility] resident with medical history of DM type I, s/p hemorrhagic CVA , left craniotomy and hypertension presents to ER for evaluation of being less active than usual. The information is taken from medical record. Pt is non verbal and he base line is unknown. Patient resides at [facility]. Pt has tracheostomy and G tube. 1. SIRS. Lactic acid is normal 2. Left side pneumonia. Xray chest is positive for Patchy left lower lobe pneumonia. 3. VDRF with tracheostomy 4. s/p craniotomy on the left. Incomplete data. 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 Brain herniates beyond the margins of the craniectomy. Old posterior right basil ganglia lacunar infarct extending cephalad into the right parietal nichols radiata and centrum semiovale. Laminar necrosis/dystrophic calcification lateral left frontal lobe. Acute hemorrhage considered less likely. Paranasal sinus mucosal disease. Right mastoid air cell disease. 5. Dysphagia with G tube 6. DM type I, uncontrolled 7. Opiate dependence, per SNF record pt was on Dilaudid PO, [place], Tramadol 8. Hypertension During hospitalization pt was on telemetry service. She was fed via G tube, she had IV fluids with IV a/b Cefepime, later blood culture growth Staph aureus. Pt was started on vancomycin until ID of the organism is obtained.. Pt exhibit signs of sepsis by tachycardia and fever, lactic acid was normal. Dr Vergara was called. He recommended to c/w b blockers and add channel blockers, Pt remain periodically tachyarrhythmic until the night before the discharge. Pt has echocardiogram done and her EF is 55%. Pt need to be cw vanco/Cefepime for 7 more days per ID via midline. We maintained pt euglycemic with insulin [place] 28 units BID. Pt was seen by pulmonology MD dr Bonner, she was on nebs around the clock with T piece oxygen via tracheostomy. Pt is on many pain control medications and we decreased the amount. Family was contacted via phone and bedside. Mother and father agreed with the return pt back to facility. Home Meds Reported Medications Hard Fat/Phenylephrine* (Anusol*) 1 Supp Supp, 1 SUPP TN PRN PRN for RECTAL BLEEDING, SUPP 10/04/18 Bisacodyl (Dulcolax) 10 Mg Supp.rect, 10 MG RC DAILY PRN for CONSTIPATION, SUPP.RECT 10/04/18 Hydrocodone/Acetaminophen ([place] 5-325 Tablet) 1 Each Tablet, 1 EACH GTB Q4H WHILE AWAKE PRN for MODERATE PAIN LEVEL 4-6, TAB 10/04/18 Acetaminophen* (Acetaminophen* Susp) 160 Mg/5 Ml Oral.susp, 160 MG GTB Q4H PRN for PAIN OR TEMP ABOVE 38C, ML AND MILD PAIN 10/04/18 Guaifenesin (Guaifenesin) 600 Mg Tablet.sa, 600 MG GTB BID PRN for THICK SECRETIONS, TAB 10/04/18 Loperamide Hcl* (Imodium*) 2 Mg Capsule, 2 MG GTB TID PRN for DIARRHEA, CAP MAX 16 mg/day 10/04/18 Lidocaine HCl (Xylocaine) 10 Mg/1 Ml Vial, 5 ML TOP BEFORE SUCTIONING , VIAL 1% 10/04/18 Tramadol Hcl* (Ultram*) 50 Mg Tablet, 50 MG PO Q6H PRN for MILD PAIN LEVEL 1-3, TAB 10/04/18 Baclofen* (Baclofen*) 10 Mg Tablet, 10 MG GTB Q6 PRN for MUSCLE SPASMS, TAB 10/04/18 Lorazepam* (Ativan*) 0.5 Mg Tablet, 0.25 MG GTB Q8 PRN for ANXIETY, #30 TAB 10/04/18 Hydromorphone Hcl* (Dilaudid*) 2 Mg Tablet, 2 MG G-TUBE Q6 PRN for PAIN LEVEL 7- 10, TAB 10/04/18 Clonidine Hcl* (Catapres*) 0.2 Mg Tablet, 0.2 MG GTB Q4H PRN for ELEVATED BLOOD PRESSURE, TAB IF SBP EQUAL TO OR >160 OR DBP EQUAL TO OR >110 10/04/18 Hydralazine Hcl* (Hydralazine Hcl*) 10 Mg Tablet, 20 MG GTB Q4 PRN for ELEVATED BLOOD PRESSURE, #120 TAB SBP EQUAL TO OR >160 DBP EQUAL TO OR > 110 10/04/18 Promethazine HCl/Codeine (Prometh-Codein 6.25-10 mg/5 ml) 5 Ml Syrup, 5 ML GTB QID PRN for COUGH 10/04/18 Polyethylene Glycol* (Miralax*) 17 Gm Powd.pack, 17 GM GTB DAILY PRN for CONSTIPATION, #30 PACKET 10/04/18 Ondansetron Hcl* (Zofran*) 4 Mg Tablet, 4 MG GTB Q6H PRN for NAUSEA AND OR VOMITING, TAB 10/04/18 Magnesium Hydroxide* (Milk Of Magnesia*) 400 Mg/5 Ml Oral.susp, 30 ML GTB DAILY PRN for CONSTIPATION, ML 10/04/18 Heparin Sod (Porcine) (Heparin) 1,000 Unit/Ml Soln, 5000 UNIT SQ Q12 10/04/18 Hydralazine Hcl* (Hydralazine Hcl*) 25 Mg Tab, 25 MG GTB TID PRN for ELEVATED BLOOD PRESSURE, #60 TAB HOLD FOR SBP LESS THAN 110 10/04/18 Metoprolol Tartrate* (Lopressor*) 50 Mg Tab, 50 MG GTB BID, #60 TAB HOLD FOR SBP<110 OR HR<60 10/04/18 Vit C-Ascorbate Ca-Ascorb Sod (Vitamin C) 500 Mg/15 Ml Liquid, 1000 MG GTB DAILY, ML PROVIDED BY FAMILY 10/04/18 Coconut Oil (COCONUT OIL) 120 Ml Oil, 10 ML GTB DAILY PROVIDED BY FAMILY 10/04/18 Cider Vinegar (Apple Cider Vinegar) 300 Mg Tablet, 15 ML GTB DAILY, TAB WITH 4oz OF WATER 10/04/18 Docosahexanoic Acid/Epa (Fish Oil Concentrate Softgel) 1 Each Capsule, 10 ML GTB DAILY, CAP 10/04/18 Famotidine* (Famotidine*) 20 Mg Tablet, 20 MG GTB BID, #60 TAB 10/04/18 Aspirin (Low Dose Aspirin) 81 Mg Tablet., 81 MG GTB DAILY, #30 TAB 10/04/18 Follow-up Plan fu PCP in 1-2 weeks cw iv vancomycin and cefepime for 7 days Primary Care Provider Not On Staff Doctor Time spent on discharge: < 30 minutes Pending Labs Laboratory Tests Test 10/09/18 13:24 10/09/18 16:27 10/09/18 16:34 10/09/18 16:41 Bedside 267 31 267 Glucose mg/dL (70-220) mg/dL (70-220) mg/dL (70-220) Glucose Level 223 mg/dl (70-220) Test 10/09/18 16:43 10/09/18 21:31 10/10/18 01:02 10/10/18 06:54 Bedside 221 352 183 125 Glucose mg/dL (70-220) mg/dL (70-220) mg/dL (70-220) mg/dL (70-220) Test 10/10/18 11:36 Bedside 212 Glucose mg/dL (70-220) VICTOR MANUEL ALEXIS Oct 10, 2018 13:00
--- NOTE | 2018-10-10 15:11 | CONS ---
Assessment/Plan Assessment/Plan Hospital Course (Demo Recall) IMPRESSION: 1. Tachyarrhythmia at this time most consistent with episodes of sinus tachycardia in the setting of fevers, but also at times maybe a concern for possible primary rhythm of the heart, goes to approximately 150. We will continue to assess.-no recurrence on BB and dilt newly started 2. Hypertension, under good control. 3. Chronic respiratory failure, status post tracheostomy. 4. Dysphagia, status post G-tube. 5. History of cerebrovascular accident. 6. Chronic encephalopathy. 7. Nonverbal state. 8. Pneumonia. 9. Anemia. Recc: -Tele -continue BB and now CCB and follow for recurrent tachycardia -Contineu asa -Contineu abx's and f/u cx data Consultation Date/Type/Reason Admit Date/Time Oct 04, 2018 at 00:30 Initial Consult Date 10/06/18 Type of Consult Cardiology Reason for Consultation tachycardia Requesting Provider: LG JEFFERS MD Date/Time of Note DATE: 10/10/18 TIME: 15:08 Exam/Review of Systems Vital Signs Vitals Vital Signs Date Temp Pulse Resp B/P (MAP) Pulse Ox O2 O2 Flow FiO2 Time Delivery Rate 10/10/18 81 19 95 Aerosol 5.0 28 14:29 Mask 10/10/18 98.5 119/75 11:25 (90) Intake and Output 10/09/18 10/09/18 10/10/18 1515:00 23:00 07:00 IntakeIntake Total 1170 ml 1270 ml BalanceBalance 1170 ml 1270 ml Exam Exam Review of Systems: CONSTITUTIONAL: No fevers, chills. PULMONARY: No sob CARDIOVASCULAR: No chest pain/palpitations GASTROINTESTINAL: No nausea/vomiting. GENITOURINARY: No hematuria/dysuria. MUSCULOSKELETAL: No myagias/arthalgias. PSYCHIATRIC: The patient denies depression. NEUROLOGIC: No weakness Constitutional: other (encephalopathic) Psych: no complaints Head: normocephalic ENMT: mucosa pink and moist Neck: supple, jvd (9 cm water) Respiratory: clear to auscultation Cardiovascular: regular rate and rhythm Gastrointestinal: soft, non-tender Musculoskeletal: muscle tone (normal) Extremities: edema (none) Neurological: other (NO focal deficits) Labs Result Diagram: 10/09/18 0738 10/09/18 1641 Results 24hrs Laboratory Tests Test 10/09/18 16:27 10/09/18 16:34 10/09/18 16:41 10/09/18 16:43 Bedside Glucose 31 *L 267 H 221 H Glucose Level 223 #H Test 10/09/18 21:31 10/10/18 01:02 10/10/18 06:54 10/10/18 11:36 Bedside Glucose 352 H 183 125 212 Medications Medications Current Medications IV Flush (NS 3 ml) 3 ml PER PROTOCOL IV ; Start 10/04/18 at 10:00 Ondansetron HCl (Zofran Tab) 4 mg Q6H PRN PO NAUSEA/VOMITING; Start 10/04/18 at 10:00 Acetaminophen (Tylenol Supp) 650 mg Q6H PRN [place] .PAIN 1-3 OR TEMP; Start 10/04/18 at 10:00 Docusate Sodium (Colace) 100 mg Q12H PRN PO .CONSTIPATION; Start 10/04/18 at 10:00 Magnesium Hydroxide (Milk Of Mag) 30 ml DAILY PRN PO .CONSTIPATION; Start 10/04/18 at 10:00 Bisacodyl (Dulcolax) 5 mg DAILY PRN PO .CONSTIPATION; Start 10/04/18 at 10:00 Bisacodyl (Dulcolax Supp) 10 mg DAILY PRN [place] .CONSTIPATION; Start 10/04/18 at 10 :00 Enoxaparin Sodium (Lovenox) 40 mg DAILY SC Last administered on 10/10/18at 09:25; Admin Dose 40 MG; Start 10/04/18 at 11:30 Albuterol/ Ipratropium (Duoneb) 3 ml Q6H RESP THERAPY HHN Last administered on 10/10/18at 14:29; Admin Dose 3 ML; Start 10/04/18 at 14:00 Acetaminophen (Tylenol Liquid (Ped)) 160 mg Q4H PRN GTB MILD PAIN(1-3) OR TEMP>38C Last administered on 10/05/18at 17:39; Admin Dose 160 MG; Start 10/04/18 at 14:30 Aspirin (Aspirin) 81 mg DAILY GTB Last administered on 10/10/18at 08:39; Admin Dose 81 MG; Start 10/04/18 at 15:00 Baclofen (Lioresal) 10 mg Q6H PRN GTB MUSCLE SPASMS Last administered on 10/09/18 09:13; Admin Dose 10 MG; Start 10/04/18 at 15:00 Clonidine (Catapres) 0.2 mg Q4H PRN GTB FOR SBP ABOVE 170; Start 10/04/18 at 15:00 Famotidine (Pepcid) 20 mg BID GTB Last administered on 10/10/18at 08:39; Admin Dose 20 MG; Start 10/04/18 at 21:00 Guaifenesin (Robitussin Liquid Cup) 300 mg QID PRN PO CONGESTION/COUGH Last administered on 10/09/18 09:14; Admin Dose 300 MG; Start 10/05/18 at 11:00 Loperamide HCl (Imodium Cap) 2 mg TID PRN GTB DIARRHEA; Start 10/04/18 at 15:00 Lorazepam (Ativan) 0.25 mg Q8H PRN GTB ANXIETY; Start 10/04/18 at 15:00 Metoprolol Tartrate (Lopressor) 50 mg BID GTB Last administered on 10/10/18at 08:40; Admin Dose 50 MG; Start 10/04/18 at 21:00 Ascorbic Acid (Vitamin C) 1,000 mg DAILY GTB Last administered on 10/10/18at 08:39; Admin Dose 1,000 MG; Start 10/04/18 at 15:00 Ondansetron HCl (Zofran Inj) 4 mg Q6H PRN IV NAUSEA AND/OR VOMITING Last administered on 10/05/18at 07:32; Admin Dose 4 MG; Start 10/05/18 at 07:00 Diagnostic Test (Pha) (Accu-Chek) 1 ea 02 XX Last administered on 10/07/18at 02:00; Admin Dose 1 EA; Start 10/06/18 at 02:00 Miscellaneous Information 1 ea NOTE XX ; Start 10/05/18 at 07:00 Glucose (Glutose) 15 gm Q15M PRN PO DECREASED GLUCOSE; Start 10/05/18 at 07:00 Glucose (Glutose) 22.5 gm Q15M PRN PO DECREASED GLUCOSE; Start 10/05/18 at 07:00 Dextrose (D50w Syringe) 25 ml Q15M PRN IV DECREASED GLUCOSE Last administered on 10/07/18at 00:56; Admin Dose 25 ML; Start 10/05/18 at 07:00 Dextrose (D50w Syringe) 50 ml Q15M PRN IV DECREASED GLUCOSE Last administered on 10/09/18 16:32; Admin Dose 50 ML; Start 10/05/18 at 07:00 Glucagon (Glucagen) 1 mg Q15M PRN IM DECREASED GLUCOSE; Start 10/05/18 at 07:00 Glucose (Glutose) 15 gm Q15M PRN BUCCAL DECREASED GLUCOSE; Start 10/05/18 at 07:00 Acetaminophen/ Hydrocodone Bitart ([place] (5/325)) 1 tab Q6H PRN GTB MODERATE PAIN LEVEL 4-6 Last administered on 10/09/18 23:23; Admin Dose 1 TAB; Start 10/05/18 at 11:00 Vancomycin HCl (Vanco Iv Per Pharmacy) VANCOMYCIN PER PHARMACY PER PROTOCOL XX ; Start 10/06/18 at 12:00 Insulin Aspart (Novolog Insulin Pen) (Adult SC Insulin - Moder... Q6 SC Last administered on 10/10/18 11:40; Admin Dose 4 UNIT; Start 10/06/18 at 18:00 Vancomycin/Sodium Chloride 250 ml @ 125 mls/hr Q8H IVPB Last administered on 10/10/18 08:39; Admin Dose 125 MLS/HR; Start 10/07/18 at 16:00 Cefepime HCl 50 ml @ 100 mls/hr Q12 IVPB Last administered on 10/10/18 11:31; Admin Dose 100 MLS/HR; Start 10/08/18 at 13:00 Diltiazem HCl (Cardizem Iv) 10 mg Q6H PRN IV ELEVATED HEART RATE Last administered on 10/09/18 00:31; Admin Dose 10 MG; Start 10/08/18 at 18:00 Sodium Chloride 1,000 ml @ 75 mls/hr [id number] IV Last administered on 10/09/18 13:53; Admin Dose 75 MLS/HR; Start 10/09/18 at 10:00 Insulin Glargine (Lantus) 28 units QHS SC Last administered on 10/09/18 21:50; Admin Dose 28 UNITS; Start 10/09/18 at 21:00 Diltiazem HCl (Cardizem) 30 mg Q8 PO Last administered on 6/14/19at 14:23; Admin Dose 30 MG; Start 10/09/18 at 22:00 Miscellaneous Information (*Rx Drug Level Order Reminder*) VANCOMYCIN TROUGH AT 2300 2300 ONCE XX ; Start 10/10/18 at 23:00; Stop 10/10/18 at 23:01 ANTONIO REDDY Oct 10, 2018 15:11
--- NOTE | 2018-10-10 18:26 | RADRPT ---
Echocardiogram Report Patient Name: ADRYAN SNIDERPatient ID: [id number] : 1995 (23y 6m)Study Date: 10/10/2018 7:34:07 AM Gender: FAccession #: [id number] Tech: Viky Fontaine [facility] Location: [id number] Ref.Physician: ANTONIO VERGARA Height(Cm): BSA: Weight(Kg): Quality: AdequateOrder Physician: ANTONIO VERGARA Account #: Procedures: Echocardiographic Report: Transthoracic echocardiogram with complete 2D, M-Mode, and doppler examination. Indications: Tachycardia. Measurements: 2D/M Mode Doppler Measurement Value Normal Range Measurement Value Normal Range LVIDd 2D 3.4 [ 3.8 - 5.2 ] cm AV Peak Heber 1.5 [ 100.0 - 170.0 ] cm/sec LVIDs 2D 2.6 [ 2.2 - 3.5 ] cm AV Peak PG 9.0 [ 2.0 - 9.0 ] mmHg LVPWd 2D 0.9 [ 0.6 - 0.9 ] cm LVOT Peak [place] 1.2 [ 70.0 - 110.0 ] cm/sec IVSd 2D 0.9 [ 0.6 - 0.9 ] cm LVOT Peak PG 6.0 [ 2.0 - 6.0 ] mmHg IVS/LVPW 2D 1.1 ratio MV E Peak [place]ber 1.0 [ 60.0 - 130.0 ] cm/sec AoR Diam 2D 2.2 [ 2.3 - 3.1 ] cm MV A Peak [place]ber 0.9 [ 100.0 - 120.0 ] cm/sec LA/Ao 2D 1 ratio MV E/A 1.1 [ 0.8 - 1.5 ] ratio LA Dimen 2D 2.5 [ 2.7 - 3.8 ] cm MV Decel Time 148 [ 104 - 258 ] msec Lat E` Heber 0.1 [ 10.0 - 15.0 ] cm/sec MV E/A 1.1 [ 0.8 - 1.5 ] ratio TR Peak Heber 1.9 [ 100.0 - 280.0 ] cm/sec TR Peak PG 14.0 mmHg RVSP 17.0 [ 10.0 - 36.0 ] mmHg RA Pressure 3.0 mmHg Findings: Left Ventricle: Normal left ventricular systolic function. Normal left ventricular cavity size. Normal left ventricular wall thickness. Ejection fraction is visually estimated at 55 %. Tissue Doppler/Mitral Doppler indices are within normal limits. Right Ventricle: Normal right ventricular size. Normal right ventricular systolic function. Left Atrium: The left atrium is normal in size. Right Atrium: The right atrium is normal in size. Mitral Valve: Normal appearance and function of the mitral valve with trace physiologic regurgitation. Aortic Valve: No hemodynamically significant aortic stenosis by doppler. Aortic cusps appear mildly calcified. Mild aortic valve regurgitation. Tricuspid Valve: Normal appearance of the tricuspid valve. The estimated Peak RVSP is 17 mmHg. There is trace tricuspid regurgitation. Pulmonic Valve: Normal pulmonic valve appearance. Pericardium: Normal pericardium with no significant pericardial effusion. Aorta: Normal aortic root. IVC: Normal size and normal respiratory collapse consistent with normal right atrial pressure. Conclusions: Normal left ventricular systolic function. Normal left ventricular cavity size. Normal left ventricular wall thickness. Ejection fraction is visually estimated at 55 %. Tissue Doppler/Mitral Doppler indices are within normal limits. Normal appearance and function of the mitral valve with trace physiologic regurgitation. No hemodynamically significant aortic stenosis by doppler. Aortic cusps appear mildly calcified. Mild aortic valve regurgitation. Normal appearance of the tricuspid valve. The estimated Peak RVSP is 17 mmHg. There is trace tricuspid regurgitation. Electronically Signed By: Antonio Vergara 2018-10-10 18:25:54 PDT
== END 2018-10-10 18:45 | DRG 207 ==
LOC: E/R 22:08 → 6WM 10-04 00:30
PROVIDERS: ADMIT Internal Medicine Nephrology; ATTEND Internal Medicine Nephrology
PROC: 4A033R1 Measurement of Arterial Saturation, Peripheral, Percutaneous Approach (ICD-10-PCS; 2018-10-03)
PROC: 5A1955Z Respiratory Ventilation, Greater than 96 Consecutive Hours (ICD-10-PCS; principal; 2018-10-04)
DX: J15.1 Pneumonia due to Pseudomonas (principal); Z99.11 Dependence on respirator [ventilator] status; F11.20 Opioid dependence, uncomplicated; G93.49 Other encephalopathy; J96.10 Chronic respiratory failure, unspecified whether with hypoxia or hypercapnia; J15.212 Pneumonia due to Methicillin resistant Staphylococcus aureus; E10.65 Type 1 diabetes mellitus with hyperglycemia; M62.838 Other muscle spasm; D64.9 Anemia, unspecified; K21.9 Gastro-esophageal reflux disease without esophagitis; R13.10 Dysphagia, unspecified; I10 Essential (primary) hypertension; Z93.0 Tracheostomy status; Z93.1 Gastrostomy status; Z88.2 Allergy status to sulfonamides; Z86.73 Personal history of transient ischemic attack (TIA), and cerebral infarction without residual deficits
CPT/HCPCS: 36415; 70450; 71045; 80048; 80053; 80202; 81001; 81003; 82803; 82947; 82962; 83036; 83605; 83735; 84100; 84145; 84439; 84443; 84484; 85025; 85610; 85730; 87070; 87086; 89220; 93005; 93306; 94640; 94664; J0692; J0696; J1170; J1650; J1815; J2405; J2543; J3370; J3480; J7030; J7040; J7050